=== PATIENT | male | born 1960 | race Caucasian/White ===

== ENCOUNTER 2017-10-08 20:16 | Inpatient (IN) | payer MEDICARE ==
[~2017-10-08] VITALS: Ht 185.4 cm; Wt 94.0 kg
[2017-10-08 20:30] VITALS: BP 118/77; PULSE 90; RESP 20; TEMP 98.6; O2SAT 92
--- NOTE | 2017-10-08 20:46 | PD ---
HPI Chief Complaint: Respiratory Symptoms Time Seen by Provider: 20:37 Travel History International Travel<30 days: No Contact w/Intl Traveler<30days: No Traveled to known affect area: No History of Present Illness HPI 57-year-old male here for evaluation of cough, shortness of breath, hemoptysis. The patient reports that he has had several episodes of pneumonia in the past , few episodes have required intubation. He was diagnosed with pneumonia couple of weeks ago while in [place] and was admitted for 3 days for this. He states his symptoms improved, however worsened 3 days ago after driving back to [place] from [place]. No chest pain. No fevers or chills. Shortness of breath is at rest, worse with exertion. PFSH Past Medical History ?: Not Social History Tobacco Use: No (Former smoker) Allergies-Medications (Allergen,Severity, Reaction): Coded Allergies: No Known Allergies (Unverified , 10/08/17) Reported Meds & Prescriptions Reported Meds & Active Scripts Active Reported Hydrochlorothiazide 25 Mg Tab 25 Mg PO DAILY Rizatriptan (Rizatriptan Benzoate) 10 Mg Tab Oxycodone-Acetaminophen 10-325 mg Tab 1 Tab PO Q6H PRN Fluoxetine (Fluoxetine HCl) 40 Mg Cap 40 Cap PO DAILY Buspirone (Buspirone HCl) 15 Mg Tab 15 Mg PO BID Mirtazapine 30 Mg Tab 30 Mg PO HS Tizanidine (Tizanidine HCl) 4 Mg Cap 4 Mg PO TID Gabapentin 800 Mg Tab 800 Mg PO TID Review of Systems Except as stated in HPI: all other systems reviewed are Neg Physical Exam Narrative GENERAL: Well-developed, well-nourished, awake, alert, no apparent distress. SKIN: Focused skin assessment warm/dry. HEAD: Atraumatic. Normocephalic. EYES: Pupils equal and round. No scleral icterus. No injection or drainage. ENT: No nasal bleeding or discharge. Mucous membranes pink and moist. NECK: Trachea midline. No JVD. CARDIOVASCULAR: Regular rate and rhythm. No murmur appreciated. RESPIRATORY: No accessory muscle use. Clear to auscultation. Breath sounds equal bilaterally. GASTROINTESTINAL: Abdomen soft, non-tender, nondistended. MUSCULOSKELETAL: No obvious deformities. No clubbing. No cyanosis. Significant bilateral lower extremity edema, left greater than right which the patient states is his baseline. NEUROLOGICAL: Awake and alert. No obvious cranial nerve deficits. Motor grossly within normal limits. Normal speech. PSYCHIATRIC: Appropriate mood and affect; insight and judgment normal. Data Data Last Documented VS Vital Signs Date Time Temp Pulse Resp B/P (MAP) Pulse Ox O2 Delivery O2 Flow Rate FiO2 10/08/17 22:35 78 18 146/78 (100) 97 Room Air 10/08/17 20:30 98.6 Orders Orders Sepsis Workup Initiated (10/08/17 ) Electrocardiogram (10/08/17 20:43) Complete Blood Count With Diff (10/08/17 20:43) Comprehensive Metabolic Panel (10/08/17 20:43) Prothrombin Time / Inr (Pt) (10/08/17 20:43) Act Partial Throm Time (Ptt) (10/08/17 20:43) Lactic Acid Sepsis Protocol (10/08/17 20:43) Ckmb (Isoenzyme) Profile (10/08/17 20:43) Troponin I (10/08/17 20:43) Urinalysis - C+S If Indicated (10/08/17 20:43) Influenzae A/B Antigen (10/08/17 20:43) Blood Culture (10/08/17 20:43) Chest, Single Ap (10/08/17 20:43) Ecg Monitoring (10/08/17 20:43) Iv Access Insert/Monitor (10/08/17 20:43) Oximetry (10/08/17 20:43) Oxygen Administration (10/08/17 20:43) Ct Pulmonary Angiogram (10/08/17 ) Cefepime Inj (Maxipime Inj) (10/08/17 22:00) Azithromycin Inj (Zithromax Inj) (10/08/17 22:00) Acetaminophen (Tylenol) (10/08/17 22:15) Iohexol 350 Inj (Omnipaque 350 Inj) (10/08/17 22:51) Admit To Inpatient (10/08/17 ) Vital Signs (Adult) Q4H (10/08/17 22:55) Activity Oob With Assistance (10/08/17 22:55) Diet Heart Healthy (10/09/17 Breakfast) Sodium Chloride 0.9% Flush (Ns Flush) (10/08/17 23:00) Sodium Chloride 0.9% Flush (Ns Flush) (10/09/17 09:00) Admit Order (Ed Use Only) (10/08/17 22:57) Acetaminophen (Tylenol) (10/08/17 23:00) Basic Metabolic Panel (Bmp) (10/09/17 06:00) Complete Blood Count With Diff (10/09/17 06:00) Enoxaparin Inj (Lovenox Inj) (10/08/17 23:00) Naloxone Inj (Narcan Inj) (10/08/17 23:00) Magnesium Hydroxide Liq (Milk Of Magnesi (10/08/17 23:00) Sennosides (Senokot) (10/08/17 23:00) Bisacodyl Supp (Dulcolax Supp) (10/08/17 23:00) Lactulose Liq (Lactulose Liq) (10/08/17 23:00) Inpatient Certification (10/08/17 ) Ceftriaxone Inj (Rocephin Inj) (10/09/17 09:00) Azithromycin (Zithromax) (10/09/17 09:00) Labs Laboratory Tests Test 10/08/17 20:15 10/08/17 21:05 10/08/17 21:15 Lactic Acid Level 0.9 mmol/L White Blood Count 6.5 TH/MM3 Red Blood Count 4.05 MIL/MM3 Hemoglobin 13.4 GM/DL Hematocrit 37.5 % Mean Corpuscular Volume 92.5 FL Mean Corpuscular Hemoglobin 33.0 PG Mean Corpuscular Hemoglobin Concent 35.7 % Red Cell Distribution Width 12.9 % Platelet Count 342 TH/MM3 Mean Platelet Volume 8.1 FL Neutrophils (%) (Auto) 78.9 % Lymphocytes (%) (Auto) 14.3 % Monocytes (%) (Auto) 5.7 % Eosinophils (%) (Auto) 0.4 % Basophils (%) (Auto) 0.7 % Neutrophils # (Auto) 5.2 TH/MM3 Lymphocytes # (Auto) 0.9 TH/MM3 Monocytes # (Auto) 0.4 TH/MM3 Eosinophils # (Auto) 0.0 TH/MM3 Basophils # (Auto) 0.0 TH/MM3 CBC Comment DIFF FINAL Differential Comment Prothrombin Time 10.0 SEC Prothromb Time International Ratio 1.0 RATIO Activated Partial Thromboplast Time 26.9 SEC Blood Urea Nitrogen 16 MG/DL Creatinine 1.10 MG/DL Random Glucose 90 MG/DL Total Protein 8.1 GM/DL Albumin 3.2 GM/DL Calcium Level 9.5 MG/DL Alkaline Phosphatase 102 U/L Aspartate Amino Transf (AST/SGOT) 16 U/L Alanine Aminotransferase (ALT/SGPT) 18 U/L Total Bilirubin 0.4 MG/DL Sodium Level 139 MEQ/L Potassium Level 3.8 MEQ/L Chloride Level 102 MEQ/L Carbon Dioxide Level 30.5 MEQ/L Anion Gap 7 MEQ/L Estimat Glomerular Filtration Rate 69 ML/MIN Total Creatine Kinase 59 U/L Troponin I LESS THAN 0.02 NG/ML Urine Color YELLOW Urine Turbidity CLEAR Urine pH 8.0 Urine Specific [place] 1.015 Urine Protein NEG mg/dL Urine Glucose (UA) NEG mg/dL Urine Ketones NEG mg/dL Urine Occult Blood NEG Urine Nitrite NEG Urine Bilirubin NEG Urine Urobilinogen 4.0 MG/DL Urine Leukocyte Esterase NEG Urine Squamous Epithelial Cells 0-5 /hpf Microscopic Urinalysis Comment CULT NOT INDICATED MDM Medical Decision Making Medical Screen Exam Complete: Yes Emergency Medical Condition: Yes Differential Diagnosis Pneumonia, PE, bronchitis, pneumothorax, ACS, pulmonary edema, pulmonary effusion Narrative Course Initial vital signs show heart rate 90, blood pressure 118/77, pulse ox 92% on room air, oral temp of 98.6F. CBC: WBC 6.5, hemoglobin 13.4, hematocrit 37.5, platelets 342, neutrophils 79%. CMP is unremarkable. Cardiac enzymes are negative. UA is not suggestive of UTI. Chest x-ray: CONCLUSION: Bilateral lower lung infiltrates, right larger than left. CT pulmonary angiogram: CONCLUSION: 1. The study is negative for pulmonary embolism. 2. Bilateral lower lobe consolidative infiltrates with larger area of involvement on the right, but denser consolidation on the left. 3. Solitary enlarged subcarinal node. Patient was made aware of all findings. He is empirically started on cefepime and azithromycin. He will be admitted for further treatment and evaluation of pneumonia, hypoxia, hemoptysis. Diagnosis Primary Impression: Pneumonia Qualified Codes: J18.1 - Lobar pneumonia, unspecified organism Additional Impressions: Hypoxia Hemoptysis Admitting Information Admitting Physician Requests: Admit Scripts Methylprednisolone Dosepak (Medrol Dosepak) 4 Mg Dspk 4 MG PO DIRECTED, #1 DSPK 0 Refills Per Pharmacist direction Prov: Berlin Marshall 10/09/17 Levofloxacin (Levofloxacin) 750 Mg Tablet 750 MG PO DAILY for Infection for 10 Days, #10 TAB 0 Refills Prov: Berlin Marshall 10/09/17 Chriss Navas MD October 08, 2017 20:46
[2017-10-08 21:11] VITALS: BP 142/80; PULSE 80; RESP 18; O2SAT 98
[2017-10-08 21:20] LABS: BILIRUBIN, URINE NEG (NEG); BLOOD, URINE NEG (NEG); GLUCOSE,URINE NEG (NEG); KETONE, URINE NEG (NEG); NITRITE,URINE NEG (NEG); URINE COLOR YELLOW (YELLW/STRAW); URINE LEUKOCYTE ESTERASE NEG (NEG)
--- NOTE | 2017-10-08 21:27 | RADRPT ---
EXAM DATE: 10/08/2017 9:24 PM EDT AGE/SEX: 57 years / Male INDICATIONS: Cough, shortness of breath for 1 week CLINICAL DATA: This is the patient's initial encounter. Patient reports that signs and symptoms have been present for 1 week and indicates a pain score of 0/10. MEDICAL/SURGICAL HISTORY: None. None. COMPARISON: No prior [facility] exams available for comparison. FINDINGS: Ill-defined partially consolidated infiltrate in the lower right lung and triangular-shaped opacity i n the lower left lung. The heart is normal in size and stop the upper lungs are clear. Both hemidiaph ragms well delineated. CONCLUSION: Bilateral lower lung infiltrates, right larger than left. Electronically signed by: Calos Sahu MD 10/08/2017 9:25 PM EDT
[2017-10-08 21:30] LABS: SQUAMOUS EPITHELIAL CELL URINE 0-5 /hpf (0-5)
[2017-10-08 21:32] LABS: AUTOMATED NEUTROPHIL # 5.2 TH/MM3 (1.8-7.7); BASOPHIL % 0.7 % (0.0-2.0); EOSINOPHIL % 0.4 % (0.0-4.0); HEMATOCRIT 37.5 % (39.0-51.0); HEMOGLOBIN 13.4 GM/DL (13.0-17.0); LYMPH % 14.3 % (9.0-44.0); LYMPHOCYTE # 0.9 TH/MM3 (1.0-4.8); MEAN CELL VOLUME 92.5 FL (80.0-100.0); MEAN CORPUSCULAR HGB CONC 35.7 % (32.0-36.0); MEAN PLATELET VOLUME 8.1 FL (7.0-11.0); MONO % 5.7 % (0.0-8.0); MONOCYTE # 0.4 TH/MM3 (0-0.9); NEUT % 78.9 % (16.0-70.0); PLATELET COUNT 342 TH/MM3 (150-450); RED BLOOD COUNT 4.05 MIL/MM3 (4.50-5.90); RED CELL DISTRIBUTION WIDTH 12.9 % (11.6-17.2); WHITE BLOOD COUNT 6.5 TH/MM3 (4.0-11.0)
[2017-10-08 21:40] LABS: CHLORIDE 102 MEQ/L (98-107); SODIUM (NA) 139 MEQ/L (136-145)
[2017-10-08 21:44] LABS: CALCIUM 9.5 MG/DL (8.5-10.1)
[2017-10-08 21:45] LABS: ALBUMIN 3.2 GM/DL (3.4-5.0); BICARBONATE 30.5 MEQ/L (21.0-32.0); BLOOD UREA NITROGEN 16 MG/DL (7-18); GLUCOSE,RANDOM 90 MG/DL (74-106)
[2017-10-08 21:48] LABS: ALT (GPT) 18 U/L (12-78); AST (GOT) 16 U/L (15-37); GLOMERULAR FILTRATION RATE 69 ML/MIN (>89)
[2017-10-08 21:49] LABS: TOTAL BILIRUBIN ADULT 0.4 MG/DL (0.2-1.0); TOTAL PROTEIN 8.1 GM/DL (6.4-8.2)
[2017-10-08 21:51] LABS: ALKALINE PHOSPHATASE 102 U/L (45-117)
[2017-10-08 21:53] LABS: TROPONIN I LESS THAN 0.02 NG/ML (0.02-0.05)
[2017-10-08] MEDS ORDERED: AZITHROMYCIN INJ 500 MG in SODIUM CHLOR 0.9% 250 ML INJ 250 ML IV ONE (22:00)
[2017-10-08] MEDS ORDERED: CEFEPIME INJ 1,000 MG in SODIUM CHLORIDE 0.9% INJ 100 ML IV ONE (22:00)
[2017-10-08] MEDS ORDERED: ACETAMINOPHEN 325 MG TAB PO ONE (22:15)
--- NOTE | 2017-10-08 22:33 | RADRPT ---
EXAM DATE: 10/08/2017 10:28 PM EDT AGE/SEX: 57 years / Male INDICATIONS: Hemoptysis. CLINICAL DATA: This is the patient's initial encounter. Patient reports that signs and symptoms have been present for 1 day and indicates a pain score of 0/10. MEDICAL/SURGICAL HISTORY: . Pulmonary embolism. None. RADIATION DOSE: 15.06 CTDI (mGy) COMPARISON: No prior [facility] exams available for comparison. TECHNIQUE: Volumetric scanning was performed using a multi-row detector CT scanner during bolus infu meagan of 65 ml Omnipaque 350 (iohexol) nonionic water-soluble contrast as a single exam dose. The enriqueta a was post processed with a variety of visualization algorithms including full volume maximum intensi ty projection and sliding thin slab reformation. Using automated exposure control and adjustment of the mA and/or kV according to patient size, radiation dose was kept as low as reasonably achievable t o obtain optimal diagnostic quality images. FINDINGS: Pulmonary Arteries: No filling defects are seen in the pulmonary arteries out to the subsegmental ve ssels. The left and right pulmonary arteries are normal in diameter. Lung: Multi segmental consolidation in the right lower lobe and dense consolidation or atelectasis i n the posterior left lower lung. Effusion: None. Mediastinum: 1 subcarinal node is prominent measuring 1.7 cm. No other enlarged mediastinal nodes. Other: The axilla is unremarkable. CONCLUSION: 1. The study is negative for pulmonary embolism. 2. Bilateral lower lobe consolidative infiltrates with larger area of involvement on the right, but denser consolidation on the left. 3. Solitary enlarged subcarinal node. Electronically signed by: Calos Sahu MD 10/08/2017 10:32 PM EDT
[2017-10-08 22:35] VITALS: BP 146/78; PULSE 78; RESP 18; O2SAT 97
[2017-10-08] MEDS ORDERED: GABA800T PO (22:41)
[2017-10-08] MEDS ORDERED: TIZA4CAP3 PO (22:41)
[2017-10-08] MEDS ORDERED: FLUO40CA PO (22:41)
[2017-10-08] MEDS ORDERED: RIZA10TA2 (22:41)
[2017-10-08] MEDS ORDERED: OXYC1TAB36 PO (22:41)
[2017-10-08] MEDS ORDERED: BUSP15TA PO (22:41)
[2017-10-08] MEDS ORDERED: HYDR25TA5 PO (22:41)
[2017-10-08] MEDS ORDERED: MIRT30TA PO (22:41)
[2017-10-08] MEDS ORDERED: IOHEXOL 350 MG/ML 10 ML VIAL (for RAD DIAG) IVCONTRAST ONE (22:51)
[2017-10-08] MEDS ORDERED: NALOXONE HCL 0.4 MG/ML AMP IV PUSH PRN (23:00)
[2017-10-08] MEDS ORDERED: BISACODYL 10 MG SUPP RECTAL PRN (23:00)
[2017-10-08] MEDS ORDERED: SENNOSIDES 8.6 MG TAB PO PRN (23:00)
[2017-10-08] MEDS ORDERED: SODIUM CHLORIDE 0.9% FLUSH 10 ML FLUSH IV FLUSH PRN (23:00)
[2017-10-08] MEDS ORDERED: ENOXAPARIN SODIUM 40 MG/0.4 ML SYRINGE SQ SCH (23:00)
[2017-10-08] MEDS ORDERED: LACTULOSE SYRUP 20 GM/30 ML CUP PO PRN (23:00)
[2017-10-08] MEDS ORDERED: ACETAMINOPHEN 325 MG TAB PO PRN (23:00)
[2017-10-08] MEDS ORDERED: MAGNESIUM HYDROXIDE SUSP 30 ML CUP PO PRN (23:00)
[2017-10-09 00:27] VITALS: BP 129/88; PULSE 68; RESP 20; TEMP 96.9; O2SAT 96
[2017-10-09 06:44] LABS: AUTOMATED NEUTROPHIL # 2.7 TH/MM3 (1.8-7.7); BASOPHIL % 0.6 % (0.0-2.0); EOSINOPHIL % 0.7 % (0.0-4.0); HEMATOCRIT 35.8 % (39.0-51.0); HEMOGLOBIN 11.9 GM/DL (13.0-17.0); LYMPH % 27.2 % (9.0-44.0); LYMPHOCYTE # 1.2 TH/MM3 (1.0-4.8); MEAN CELL VOLUME 94.4 FL (80.0-100.0); MEAN CORPUSCULAR HEMOGLOBIN 31.4 PG (27.0-34.0); MEAN CORPUSCULAR HGB CONC 33.3 % (32.0-36.0); MEAN PLATELET VOLUME 7.9 FL (7.0-11.0); MONO % 8.5 % (0.0-8.0); MONOCYTE # 0.4 TH/MM3 (0-0.9); PLATELET COUNT 319 TH/MM3 (150-450); RED BLOOD COUNT 3.79 MIL/MM3 (4.50-5.90); RED CELL DISTRIBUTION WIDTH 12.4 % (11.6-17.2); WHITE BLOOD COUNT 4.3 TH/MM3 (4.0-11.0)
[2017-10-09 06:53] LABS: CALCIUM 9.5 MG/DL (8.5-10.1)
[2017-10-09 06:54] LABS: BICARBONATE 32.6 MEQ/L (21.0-32.0)
[2017-10-09 08:30] VITALS: BP 146/80; PULSE 73; RESP 15; TEMP 97.7; O2SAT 93
[2017-10-09] MEDS ORDERED: AZITHROMYCIN 250 MG TAB PO SCH (09:00)
[2017-10-09] MEDS ORDERED: cefTRIAXone INJ 2,000 MG in SODIUM CHLORIDE 0.9% INJ 100 ML IV SCH (09:00)
[2017-10-09] MEDS ORDERED: SODIUM CHLORIDE 0.9% FLUSH 10 ML FLUSH IV FLUSH SCH (09:00)
--- NOTE | 2017-10-09 10:47 | HHI.HP ---
[facility]Staff Ad[facility] Diagnosis Pneumonia, hypoxia, hemoptysis Diagnoses: (1) Pneumonia Diagnosis: Principal Chief Complaint: Cough, sputum with blood Travel History International Travel<30 Days: No Contact w/Intl Traveler <30 Da: No Traveled to Known Affected Are: No History of Present Illness Written by Berlin Marshall, acting as scribe for Dr. Souza on 10/09/17 at 10: 47. 57-year-old male with known history of recent pneumonia, history of tobacco use, chronic degenerative neck issues. Patient states that his normal state of health until he went to [place] to visit his mother and he developed pneumonia at that time. In the hospital and was discharged with 10 days worth of antibiotics include cefdinir/Zithromax. Patient took the antibiotics until completed. The patient did drive back home and was doing quite well until approximately 3 days ago when he started having cough again so he called his primary medical doctor who started him on antibiotic in which he would only have to take once daily. He agrees that it may have been Levaquin. Patient only took 1 dose of medication until he started developing cough with some blood in his he came to emergency department for evaluation. Patient had workup done and CT scan of the chest did not indicate any PE, however still indicates bilateral pneumonia. Because that reason is recommended by the ER physician that patient be observed in the hospital. Patient denies any fever, chills, shortness breath, abdominal pain, nausea, vomiting, diarrhea, any worsening lower extremity edema. Patient did have some cough with some red blood in it, however he has not had any recurrence since being in the hospital. Review of Systems Respiratory: COMPLAINS OF: Cough, Hemoptysis Except as stated in HPI: all other systems reviewed are Neg Past Family Social History Past Medical History Degenerative neck issues Recurrent pneumonia History of tobacco use Past Surgical History Gastric bypass surgery Vasectomy Varicose vein removed from bilateral legs Cholecystectomy Surgery for bowel obstruction Reported Medications Reported Meds & Active Scripts Active Medrol Dosepak (Methylprednisolone) 4 Mg Dspk 4 Mg PO DIRECTED Per Pharmacist direction Levofloxacin 750 Mg Tablet 750 Mg PO DAILY 10 Days Reported Hydrochlorothiazide 25 Mg Tab 25 Mg PO DAILY Rizatriptan (Rizatriptan Benzoate) 10 Mg Tab Oxycodone-Acetaminophen 10-325 mg Tab 1 Tab PO Q6H PRN Fluoxetine (Fluoxetine HCl) 40 Mg Cap 40 Cap PO DAILY Buspirone (Buspirone HCl) 15 Mg Tab 15 Mg PO BID Mirtazapine 30 Mg Tab 30 Mg PO HS Tizanidine (Tizanidine HCl) 4 Mg Cap 4 Mg PO TID Gabapentin 800 Mg Tab 800 Mg PO TID Allergies: Coded Allergies: No Known Allergies (Unverified , 10/08/17) Family History Reviewed is significant for father at age 52 from stroke and heart attack, mother recently at age 87 Social History Patient quit smoking 18 years ago, prior to that he smoked 3 pack of cigarettes a day since he was 17 years old. Does use alcohol occasionally. Denies any illicit drug use Physical Exam Vital Signs Vital Signs Date Time Temp Pulse Resp B/P (MAP) Pulse Ox O2 Delivery O2 Flow Rate FiO2 10/09/17 08:30 97.7 73 15 146/80 (102) 93 10/09/17 00:27 96.9 68 20 129/88 (102) 96 10/09/17 00:24 10/09/17 00:19 20 10/08/17 22:35 78 18 146/78 (100) 97 Room Air 10/08/17 21:11 80 18 142/80 (100) 98 Room Air 10/08/17 21:11 18 98 Room Air 10/08/17 21:11 98 Room Air 10/08/17 20:47 22 94 Room Air 10/08/17 20:30 98.6 90 20 118/77 (91) 92 Physical Exam GENERAL: Well-developed, well-nourished, in no acute distress. alert and orientated HEENT: Head is normocephalic without any lesions or masses noted. Facial features are symmetric. Eyes: Pupils equal round reactive to light. Extraocular muscles are intact. Conjunctivae were clear. Oropharyngeal: Pharynx without any erythema edema. Tongue is midline without deviation. Buccal mucosa is moist without any masses or lesions NECK: Supple without any masses. Trachea midline no deviation. No JVD, no bruits are appreciated CARDIAC: Regular rhythm, regular rate. S1/S2 are heard. No murmurs gallops or rubs. LUNGS: Clear to auscultation bilaterally. No wheeze, rhonchi or rales. No use of accessory muscles on inspiration or expiration. ABDOMEN: Soft, nontender. Nondistended. Bowel sounds heard in all 4 quadrants. No organomegaly or masses. Negative rebound, negative guarding EXTREMITIES: No edema, pulses are equal bilaterally. No cyanosis or clubbing NEUROLOGY: Mood and affect appear appropriate. Cranial nerves II through XII grossly intact. Muscle strength 5/5 in upper and lower extremities bilaterally. Deep tendon reflexes are 2+ in upper and lower extremities bilaterally. Laboratory Laboratory Tests Test 10/08/17 20:15 10/08/17 21:05 10/08/17 21:15 10/09/17 05:06 Lactic Acid Level 0.9 White Blood Count 6.5 4.3 Red Blood Count 4.05 3.79 Hemoglobin 13.4 11.9 Hematocrit 37.5 35.8 Mean Corpuscular Volume 92.5 94.4 Mean Corpuscular Hemoglobin 33.0 31.4 Mean Corpuscular Hemoglobin Concent 35.7 33.3 Red Cell Distribution Width 12.9 12.4 Platelet Count 342 319 Mean Platelet Volume 8.1 7.9 Neutrophils (%) (Auto) 78.9 63.0 Lymphocytes (%) (Auto) 14.3 27.2 Monocytes (%) (Auto) 5.7 8.5 Eosinophils (%) (Auto) 0.4 0.7 Basophils (%) (Auto) 0.7 0.6 Neutrophils # (Auto) 5.2 2.7 Lymphocytes # (Auto) 0.9 1.2 Monocytes # (Auto) 0.4 0.4 Eosinophils # (Auto) 0.0 0.0 Basophils # (Auto) 0.0 0.0 CBC Comment DIFF FINAL DIFF FINAL Differential Comment Prothrombin Time 10.0 Prothromb Time International Ratio 1.0 Activated Partial Thromboplast Time 26.9 Blood Urea Nitrogen 16 14 Creatinine 1.10 1.00 Random Glucose 90 82 Total Protein 8.1 Albumin 3.2 Calcium Level 9.5 9.5 Alkaline Phosphatase 102 Aspartate Amino Transf (AST/SGOT) 16 Alanine Aminotransferase (ALT/SGPT) 18 Total Bilirubin 0.4 Sodium Level 139 141 Potassium Level 3.8 4.0 Chloride Level 102 105 Carbon Dioxide Level 30.5 32.6 Anion Gap 7 3 Estimat Glomerular Filtration Rate 69 77 Total Creatine Kinase 59 Troponin I LESS THAN 0.02 Urine Color YELLOW Urine Turbidity CLEAR Urine pH 8.0 Urine Specific [place] 1.015 Urine Protein NEG Urine Glucose (UA) NEG Urine Ketones NEG Urine Occult Blood NEG Urine Nitrite NEG Urine Bilirubin NEG Urine Urobilinogen 4.0 Urine Leukocyte Esterase NEG Urine Squamous Epithelial Cells 0-5 Microscopic Urinalysis Comment CULT NOT INDICATED Date/Time Source Procedure Growth Status 10/08/17 21:08 Blood Peripheral Aerobic Blood Culture Pending Received 10/08/17 21:08 Blood Peripheral Anaerobic Blood Culture Pending Received 10/08/17 21:08 Nasal Washing Influenza Types A,B Antigen (PAMELA) - Final NEGATIVE FOR FLU A AND B ANTIGEN.... Complete Result Diagram: 10/09/17 0506 10/09/17 0506 Imaging Last Impressions Chest X-Ray 10/08/173 Signed Impressions: CONCLUSION: Bilateral lower lung infiltrates, right larger than left. CT Angiography 10/08/17 0000 Signed Impressions: CONCLUSION: 1. The study is negative for pulmonary embolism. 2. Bilateral lower lobe consolidative infiltrates with larger area of involvem ent on the right, but denser consolidation on the left. 3. Solitary enlarged subcarinal node. Caprini VTE Risk Assessment Caprini VTE Risk Assessment: No/Low Risk (score <= 1) Caprini Risk Assessment Model Point Value = 1 Point Value = 2 Point Value = 3 Point Value = 5 Age 41-60 Minor surgery BMI > 25 kg/m2 Swollen legs Varicose veins or History of unexplained or recurrent spontaneous Oral contraceptives or hormone replacement Sepsis (< 1 month) Serious lung disease, including pneumonia (< 1 month) Abnormal pulmonary function Acute myocardial infarction Congestive heart failure (< 1 month) History of inflammatory bowel disease Medical patient at bed rest Age 61-74 Arthroscopic surgery Major open surgery (> 45 min) Laparoscopic surgery (> 45 min) Malignancy Confined to bed (> 72 hours) Immobilizing plaster cast Central venous access Age >= 75 History of VTE Family history of VTE Factor V Leiden Prothrombin [id number] Lupus anticoagulant Anticardiolipin antibodies Elevated serum homocysteine Heparin-induced thrombocytopenia Other congenital or acquired thrombophilia Stroke (< 1 month) Elective arthroplasty Hip, pelvis, or leg fracture Acute spinal cord injury (< 1 month) Prophylaxis Regimen Total Risk Factor Score Risk Level Prophylaxis Regimen 0-1 Low Early ambulation 2 Moderate Order ONE of the following: *Sequential Compression Device (SCD) *Heparin 5000 units SQ BID 3-4 Higher Order ONE of the following medications: *Heparin 5000 units SQ TID *Enoxaparin/Lovenox 40 mg SQ daily (WT < 150 kg, CrCl > 30 mL/min) *Enoxaparin/Lovenox 30 mg SQ daily (WT < 150 kg, CrCl > 10-29 mL/min) *Enoxaparin/Lovenox 30 mg SQ BID (WT < 150 kg, CrCl > 30 mL/min) AND/OR *Sequential Compression Device (SCD) 5 or more Highest Order ONE of the following medications: *Heparin 5000 units SQ TID (Preferred with Epidurals) *Enoxaparin/Lovenox 40 mg SQ daily (WT < 150 kg, CrCl > 30 mL/min) *Enoxaparin/Lovenox 30 mg SQ daily (WT < 150 kg, CrCl > 10-29 mL/min) *Enoxaparin/Lovenox 30 mg SQ BID (WT < 150 kg, CrCl > 30 mL/min) AND *Sequential Compression Device (SCD) Assessment and Plan Assessment and Plan 57-year-old male with history of recurrent pneumonia who presented the hospital because of cough, blood in his sputum Bilateral pneumonia -Patient did have chest x-ray done which showed bilateral lower lung infiltrates , right larger than left -Pulmonary angiogram was performed which did not indicate any pulmonary emboli, however does support bilateral lower lobe consolidative infiltrates larger on the right but denser on the left -Patient with recent pneumonia, x-ray findings could be residual pneumonia from recently treated infection. Patient is without any leukocytosis, afebrile, no signs of hypoxia -We will continue Levaquin 750 mg p.o. daily for 10 days upon discharge -Continue duo nebs/Combivent DVT prevention -Low risk, early ambulation Discharge disposition Discharge home in stable condition Activity: Ad joe. Diet: Regular diet Medication per medication reconciliation Follow-up with primary medical doctor in 1 week Problem Qualifiers (1) Pneumonia: Qualified Codes: J18.1 - Lobar pneumonia, unspecified organism Berlin Marshall October 09, 2017 10:47 Sung Souza MD October 09, 2017 10:48
[2017-10-09] MEDS ORDERED: LEVO750T3 PO (11:11)
[2017-10-09] MEDS ORDERED: MEDR4PAK PO (11:11)
--- NOTE | 2017-10-09 11:11 | HHI.DCPOC ---
Discharge Care Plan Diagnosis: (1) Pneumonia Goals to Promote Your Health * To prevent worsening of your condition and complications * To maintain your health at the optimal level Directions to Meet Your Goals Take your medications as prescribed Follow your dietary instruction Follow activity as directed Keep your appointments as scheduled Take your immunizations and boosters as scheduled If your symptoms worsen call your PCP, if no PCP go to Urgent Care Center or Emergency Room Smoking is Dangerous to Your Health. Avoid second hand smoke Call the 24-hour hour crisis hotline for domestic abuse at [place] Marshall October 09, 2017 11:11
--- NOTE | 2017-10-09 13:41 | MB ---
cc: Jc Bro MD DATE: 10/09/2017 HISTORY OF PRESENT ILLNESS: Mr. Antoine is a 57-year-old white male who presents with right lower lobe pneumonia. He was traveling back from [place] after attending his mother's . He had actually been hospitalized there with pneumonia and they recommended that he return home. He had been evaluated in [place] about 3 years ago for recurrent pneumonia. Apparently saw a carpet inspector, although we have none of those records available. It sounds like he had an extensive review including possibly bronchoscopy, but he says nothing specific was identified as far as he knew. He is homosexual, lives with a male friend, is aware of the risk of HIV, but was tested within the last 6-8 months and was apparently negative, and during that evaluation 3 years ago again, as best I can tell from his own personal history relating it to me, no specific opportunistic infections were identified. The patient is also quite emphatic that during the 3 years he has lived here, he has not had pneumonia while in [place]. The frequent pneumonias occurred while he was living in [place], which is one of the reasons he moved here. He was also a former heavy smoker, 2-3 packs per day, smoked until he was about 40-42 years of age and has not smoked since. Denies any type of recreational drug use. He presented with a cough and congestion, some intermittent hemoptysis and CT scan reveals an extensive right lower lobe and patchy left lower lobe infiltrate. No evidence of pulmonary embolism. No significant pleural effusions. The patient was begun on IV antibiotics last night, says that he is feeling much better today. He is afebrile. Cultures are pending. Influenza A and B were negative. White count was not elevated, it was 6500. Electrolytes are normal. BUN and creatinine normal. No elevation in liver functions. PAST MEDICAL HISTORY: He says until he was 47 years of age he has had no serious health issues. However, he was extremely obese. He said at one time he weighed 500 pounds. He had a gastric bypass surgery in 1999 and lost hundreds of pounds. He had some vein stripping in his legs for varicosities, had a vasectomy in the . Has never been formally diagnosed with COPD. He has a history of hypertension, but no prior history of myocardial infarction, stroke, or CHF. He did have a bowel obstruction in 2008 complicated by sepsis, ended up having 2 or 3 surgeries for that and was in the hospital for 4 months. He states that his pneumonias began to occur since that prolonged hospitalization. MEDICATIONS: Reviewed in the EMR. ALLERGIES: NONE KNOWN. SOCIAL HISTORY/FAMILY HISTORY: Lives with a male friend. Formerly , , had 3 daughters in that relationship, all of whom are apparently healthy. Mother just of problems related to an infection. Father of heart disease in his 50s. A sister with diabetes. No chronic lung disease in the family. Also, no animal exposures or unusual inhalation exposures. REVIEW OF SYSTEMS: Denies nausea, vomiting, abdominal pain or recent change in bowel habits. No significant chronic edema. PHYSICAL EXAMINATION: VITAL SIGNS: 97 degrees, 140/80, pulse 70, respirations 14-16, nonlabored. Room air saturation 97%. HEENT: Sclerae are anicteric. Mucous membranes are moist. No thrush. NECK: Veins are flat. CHEST: Remarkably clear, actually a bit diminished. No congestion or wheezing. HEART: Regular rhythm. No harsh murmur. ABDOMEN: Soft, nontender. EXTREMITIES: Large legs. Vein stripping scars in the legs, but no palpable edema. No calf tenderness. DISCUSSION: Mr. Antoine presents with obvious right lower lobe infiltrate, almost looks somewhat chronic as though there may be underlying bronchiectasis. This may account for why he was having recurrent problems. Nothing mass-like or suggestive of malignancy, although with the prior smoking history these x-rays will have to be followed up until clear. I would suggest continuing current antibiotic therapy. Discontinue Lovenox in light of the recent hemoptysis. Followup chest x-ray tomorrow and check to see if cultures remain negative. Further diagnostic and/or therapeutic intervention will depend on his ongoing clinical course. R. MD CASANDRA Rosa/BAILEE , 01:16 PM , 01:40 PM
--- NOTE | 2017-10-10 08:15 | EKG ---
Date Performed: 10/08/2017 Time Performed: 20:51:57 PTAGE: 57 years EKG: Sinus rhythm NORMAL ECG NO PREVIOUS TRACING DOCTOR: Tanya Sanon Interpretating Date/Time 10/10/2017 08:12:39
== END 2017-10-09 15:16 | disposition home or self-care (01) | DRG 194 ==
LOC: PHED 20:16 → PHEDA 22:57 → OBSVTOIN 22:57 → UNDOADMOB 22:59 → PHEDA 22:59 → PH3A 10-09 00:17 → UNDODISOB 10-09 15:16
PROVIDERS: ADMIT Hospitalist; ATTEND Hospitalist
DX: J18.1 Lobar pneumonia, unspecified organism (principal); R04.2 Hemoptysis; R09.02 Hypoxemia; Z87.01 Personal history of pneumonia (recurrent); Z87.891 Personal history of nicotine dependence; Z98.84 Bariatric surgery status
CPT/HCPCS: 71045; 71275; 80048; 80053; 81001; 82550; 83605; 84484; 85025; 85610; 85730; 87040; 87804; 93005; 96365; J0456; J0692; J0696; J1650; J7050; Q9967

== ENCOUNTER 2018-04-27 06:12 | Inpatient (IN) ==
--- NOTE | 2018-04-27 06:26 | ED ---
Triage General Chief Complaint: Shortness of Breath/Dyspnea Time Seen by Provider: 04/27/18 06:23 Source: patient Limitations: no limitations History of Present Illness HPI narrative: Patient presents with history of indigestion last night after dinner. Patient went to sleep with no complaints. Patient woke up at 4:30 AM with substernal pressure diaphoresis and shortness of breath. Patient has no cardiac history. Patient has had pneumonia 17 times. Patient has history of increased anxiety and stress. Allergies Allergies Allergy/AdvReac Type Severity Reaction Status Date / Time No Known Allergies Allergy Unverified 10/08/17 20:34 Vital Signs Recall Vital Signs: Initial Documented Vital Signs Temperature 99.4 F 04/27/18 06:13 Pulse Rate 112 H 04/27/18 06:13 Respiratory Rate 22 04/27/18 06:13 Blood Pressure 109/60 04/27/18 06:13 Pulse Oximetry 83 L 04/27/18 06:13 Last Documented Vital Signs Temperature 99.4 F 04/27/18 06:13 Pulse Rate 112 H 04/27/18 06:13 Respiratory Rate 22 04/27/18 06:13 Blood Pressure 109/60 04/27/18 06:13 Pulse Oximetry 83 L 04/27/18 06:13 Vital Signs 3 l l l l 04/27/18 06:13 l l 04/27/18 06:13 l l Height 185.42 cm l l Weight 106.2 kg l l BMI 30.9 l l BP 109/60 l l Blood Pressure Location l l Position Sitting l l Respiration 22 l l Pulse 112 H l l Pulse Source l l Temp 99.4 F l l Temp Source Oral l l Pulse Oximetry (%) 83 L l l Oxygen Delivery Method l l Oxygen Flow Rate l l Comment PMFSH History History Provided By: Patient
--- NOTE | 2018-04-27 06:43 | ED ---
HPI General Chief Complaint: Shortness of Breath/Dyspnea Stated Complaint: sob Time Seen by Provider: 04/27/18 06:23 Source: patient Mode of arrival: ambulatory Limitations: no limitations History of Present Illness HPI narrative: Patient came in ambulatory with shortness of breath with pulse Pulse-ox of 83. Patient states he had mild cough yesterday morning. Also had indigestion after dinner prior to going to bed. Patient woke up with significant shortness of breath, diaphoresis and substernal pressure at 4:30 AM. Symptoms persisted until arrival. However on arrival substernal pressure was no longer evidenced. Patient states that he has had pneumonia 17 times. Comes in with history of anxiety and stress Related Data Home Medications Medication Instructions Recorded Confirmed fluoxetine 40 mg PO DAILY 04/27/18 04/27/18 gabapentin 800 mg PO Q6H 04/27/18 04/27/18 hydrochlorothiazide 12.5 mg PO DAILY 04/27/18 04/27/18 mirtazapine 30 mg PO DAILY 04/27/18 04/27/18 oxycodone-acetaminophen 1 tab PO Q6H PRN 04/27/18 04/27/18 rizatriptan 1 tab PO DAILY 04/27/18 04/27/18 tizanidine 4 mg PO TID 04/27/18 04/27/18 Allergies Allergy/AdvReac Type Severity Reaction Status Date / Time acetaminophen [From Lortab] AdvReac Itching Verified 04/27/18 07:19 hydrocodone [From Lortab] AdvReac Itching Verified 04/27/18 07:19 Review of Systems ROS: all other systems reviewed are negative [facility] Family History Family History Mother Old age Father Family history of COPD (chronic obstructive pulmonary disease) Social History Social History Substance History: No History of Abuse Second Hand Smoke Exposure: No Smoking Status: Former smoker Tobacco Type: Cigarettes How Often Do You Have a Drink Containing Alcohol: Monthly or less Recent Travel in [facility] within the Last 8 Weeks: No Recent Out of Country Travel within the Last 8 Weeks: No Exam Narrative Exam Narrative: GENERAL: Anxiety and diaphoretic with slight temperature elevation SKIN: Focused skin assessment warm/dry. HEAD: Atraumatic. Normocephalic. EYES: Pupils equal and round. No scleral icterus. No injection or drainage. ENT: No nasal bleeding or discharge. Mucous membranes pink and moist. NECK: Trachea midline. No JVD. CARDIOVASCULAR: Regular rate and rhythm. No murmur appreciated. RESPIRATORY: No accessory muscle use. Clear to auscultation. Breath sounds equal bilaterally. Decreased breath sounds in with crepitant rales in bases GASTROINTESTINAL: Abdomen soft, non-tender, nondistended. Hepatic and splenic margins not palpable. MUSCULOSKELETAL: No obvious deformities. No clubbing. No cyanosis. Generalized swelling of lower extremities with no pretibial edema NEUROLOGICAL: Awake and alert. No obvious cranial nerve deficits. Motor grossly within normal limits. Normal speech. PSYCHIATRIC: Increased anxiety and stress Course Reevaluation(s) Reevaluation #1: After receiving 2 L of IV fluids, patient now has shortness of breath, as well as right-sided chest pain. Repeat lung auscultation showed the patient has bilateral significant crackles both posterior lung bases, little worse on right side, but increasing crackles on the left side is a new finding. Discomfort in the right lateral chest wall is typical of his chest discomfort with his pneumonia. However, we will repeat troponin level and EKG. patient somewhat improved with rest, reassurance, and gentle controlled breathing, but still has significant coarse crackles in both lung trejo posteriorly. Time: 10:41 Initial Documented Vital Signs Temperature 99.4 F 04/27/18 06:13 Pulse Rate 112 H 04/27/18 06:13 Respiratory Rate 22 04/27/18 06:13 Blood Pressure 109/60 04/27/18 06:13 Pulse Oximetry 83 L 04/27/18 06:13 Last Documented Vital Signs Temperature 98.3 F 04/28/18 04:00 Pulse Rate 74 04/28/18 06:00 Respiratory Rate 18 04/28/18 06:00 Blood Pressure 119/73 04/28/18 06:00 Pulse Oximetry 94 L 04/28/18 06:00 Critical Care Time Critical Care Time: Yes Total Critical Care Time: 60 Attestation: 60 minutes of critical care time was provided stabilizing this patient with an acute right lower lobe pneumonia, hypoxemia, febrile, with significant neutropenia, and persistent hypotension, despite aggressive fluid replenishment with normal saline. No billable procedures were performed during this encounter. Sign Out Sign Out Data: Patient Sign Out occurred on 04/27/18 at 08:02. Patient's care was discussed, and care was transferred from Rusty Cueto MD to [place] Reyes. Sign Out Comment: Discussed Last updated by Rusty Cueto MD at 04/27/18 08:00 Medical Decision Making MDM Narrative Medical decision making narrative: This 58-year-old man with history of recurrent pneumonia, awakened today with shortness of breath, fever, and was found to be hypoxemic with an oxygen saturation of 83%. Patient is currently 95 % on 2 L of oxygen, resting fairly comfortably, and has a significant neutropenia, with a white count of 1.5, with an absolute neutrophil count of 1000, but he has trended towards hypotension, and required fluid resuscitation, and was given IV antibiotics with Rocephin and azithromycin, but blood pressure has been recorded maximally at 118/68 after first liter of fluid, but during second liter is now in the 92/74 range. Patient is resting fairly comfortably with oxygen, but is at rest. Lactic acid is fairly stable at 1.2, but patient shows several criteria for Sirs and sepsis, with hypoxemia, fever, right lower lobe pneumonia and persistent hypotension, and will likely need intensive care for close monitoring while he is recovering. Consultation with venture capital analyst, Dr. Rodriguez, felt that patient was initially stable, with a normal lactic acid level, and was dehydrated, and needed further fluid hydration, but hydration had to be terminated after 2 L when patient became acutely dyspneic, with acute onset of development of bilateral crackles, and findings of increased perihilar opacifications compatible with pulmonary vascular congestion, in addition to the right lower lobe pneumonia. Oxygenation was increased to 3 L, oxygen saturation stable at 95% on 3 L. Patient still somewhat short of breath, but blood pressure is more stable at 119 /74, HR 74. Medical Screen Exam Complete: Yes Emergency Medical Condition: Yes Lab Data Result diagrams: 04/28/18 04:22 04/28/18 04:22 Lab Results 04/27/18 04/27/18 04/27/18 Range/Units 06:30 06:30 06:30 CBC w Diff Slide review pending WBC 1.5 L (4.0-11.0) th/mm3 RBC 4.16 L (4.50-5.90) mil/mm3 Hgb 13.8 (13.0-17.0) gm/dL Hct 40.4 (39.0-51.0) % MCV 97.0 (80.0-100.0) fL MCH 33.1 (27.0-34.0) pg MCHC 34.1 (32.0-36.0) % RDW 13.1 (11.6-17.2) % Plt Count 167 (150-450) th/mm3 MPV 8.0 (7.0-11.0) fL Neut % (Auto) 81.9 H (16.0-70.0) % Lymph % (Auto) 13.3 (9.0-44.0) % Porter % (Auto) 2.6 (0.0-8.0) % Eos % (Auto) 0.5 (0.0-4.0) % Baso % (Auto) 1.7 (0.0-2.0) % Neut # (Auto) 1.2 L (1.8-7.7) th/mm3 Lymph # (Auto) 0.2 L (1.0-4.8) th/mm3 Porter # (Auto) 0.0 (0.0-0.9) th/mm3 Eos # (Auto) 0.0 (0.0-0.4) th/mm3 Baso # (Auto) 0.0 (0.0-0.2) th/mm3 WBC Differential Manual diff final Seg Neuts % (Manual) 72 H (16-70) % Lymphocytes % (Manual) 22 (9-44) % Monocytes % (Manual) 6 (0-8) % Abs Neuts (Manual) 1.1 L (1.8-7.7) th/mm3 Differential Comment . Platelet Estimate Normal (Normal) Platelet Morphology Normal (Normal) RBC Morphology Normal (Normal) PT (9.8-11.6) sec INR Ratio APTT (23.4-31.7) sec Sodium 139 (136-145) meq/L Potassium 4.1 (3.5-5.1) meq/L Chloride 107 (98-107) meq/L Carbon Dioxide 24.8 (21.0-32.0) meq/L Anion Gap 7 (5-15) meq/L BUN 16 (7-18) mg/dL Creatinine 1.40 H (0.60-1.30) mg/dL Estimated GFR 52 L (>89) mL/min POC Glucose (68-110) mg/dl Random Glucose 100 (74-106) mg/dL Lactic Acid (0.4-2.0) mmol/L Calcium 8.2 L (8.5-10.1) mg/dL Phosphorus (2.5-4.9) mg/dL Magnesium (1.5-2.5) mg/dL Total Bilirubin 0.8 (0.2-1.0) mg/dL AST 135 H (15-37) U/L ALT 100 H (12-78) U/L Alkaline Phosphatase 199 H (45-117) U/L Total Creatine Kinase (39-308) U/L Troponin I Less than 0.02 L (0.02-0.05) ng/mL B-Natriuretic Peptide 51 (0-100) pg/mL Total Protein 7.1 (6.4-8.2) g/dL Albumin 3.6 (3.4-5.0) g/dL Lipase (73-393) U/L Ur Collection Type Urine Color (Yellw/Straw) Urine Clarity (Clear) Urine pH (5.0-8.5) Ur Specific [place] (1.002-1.035) Urine Protein (Neg-Trace) mg/dL Urine Glucose (UA) (Negative) mg/dL Urine Ketones (Negative) mg/dL Urine Occult Blood (Negative) Urine Nitrate (Negative) Urine Bilirubin (Negative) Urine Urobilinogen (Less than 2) mg/dL Ur Leukocyte Esterase (Negative) Urine WBC (0-5) /hpf Ur Squamous Epith Cells (0-5) /hpf Urine Mucus (Occasional) /lpf Micro UA Comment Ur Microscopic Review Urine Culture Comments Nasal Screen MRSA (PCR) (Negative) Hepatitis A IgM Ab (Nonreactive) Hep Bs Antigen (Nonreactive) Hep B Core IgM Ab (Nonreactive) Hep C IgG Ab (Nonreactive) 04/27/18 04/27/18 04/27/18 Range/Units 08:43 10:52 11:00 CBC w Diff WBC (4.0-11.0) th/mm3 RBC (4.50-5.90) mil/mm3 Hgb (13.0-17.0) gm/dL Hct (39.0-51.0) % MCV (80.0-100.0) fL MCH (27.0-34.0) pg MCHC (32.0-36.0) % RDW (11.6-17.2) % Plt Count (150-450) th/mm3 MPV (7.0-11.0) fL Neut % (Auto) (16.0-70.0) % Lymph % (Auto) (9.0-44.0) % Porter % (Auto) (0.0-8.0) % Eos % (Auto) (0.0-4.0) % Baso % (Auto) (0.0-2.0) % Neut # (Auto) (1.8-7.7) th/mm3 Lymph # (Auto) (1.0-4.8) th/mm3 Porter # (Auto) (0.0-0.9) th/mm3 Eos # (Auto) (0.0-0.4) th/mm3 Baso # (Auto) (0.0-0.2) th/mm3 WBC Differential Seg Neuts % (Manual) (16-70) % Lymphocytes % (Manual) (9-44) % Monocytes % (Manual) (0-8) % Abs Neuts (Manual) (1.8-7.7) th/mm3 Differential Comment Platelet Estimate (Normal) Platelet Morphology (Normal) RBC Morphology (Normal) PT (9.8-11.6) sec INR Ratio APTT (23.4-31.7) sec Sodium (136-145) meq/L Potassium (3.5-5.1) meq/L Chloride (98-107) meq/L Carbon Dioxide (21.0-32.0) meq/L Anion Gap (5-15) meq/L BUN (7-18) mg/dL Creatinine (0.60-1.30) mg/dL Estimated GFR (>89) mL/min POC Glucose (68-110) mg/dl Random Glucose (74-106) mg/dL Lactic Acid 1.2 (0.4-2.0) mmol/L Calcium (8.5-10.1) mg/dL Phosphorus (2.5-4.9) mg/dL Magnesium (1.5-2.5) mg/dL Total Bilirubin (0.2-1.0) mg/dL AST (15-37) U/L ALT (12-78) U/L Alkaline Phosphatase (45-117) U/L Total Creatine Kinase (39-308) U/L Troponin I Less than 0.02 L (0.02-0.05) ng/mL B-Natriuretic Peptide (0-100) pg/mL Total Protein (6.4-8.2) g/dL Albumin (3.4-5.0) g/dL Lipase (73-393) U/L Ur Collection Type Clean catch Urine Color Yellow (Yellw/Straw) Urine Clarity Clear (Clear) Urine pH 5.5 (5.0-8.5) Ur Specific [place] Greater/equal 1.030 (1.002-1.035) Urine Protein Negative (Neg-Trace) mg/dL Urine Glucose (UA) Negative (Negative) mg/dL Urine Ketones Trace H (Negative) mg/dL Urine Occult Blood Negative (Negative) Urine Nitrate Negative (Negative) Urine Bilirubin Negative (Negative) Urine Urobilinogen 2.0 H (Less than 2) mg/dL Ur Leukocyte Esterase Negative (Negative) Urine WBC 0-5 (0-5) /hpf Ur Squamous Epith Cells 0-5 (0-5) /hpf Urine Mucus Few H (Occasional) /lpf Micro UA Comment Culture not ind Ur Microscopic Review Microscopic reviewed Urine Culture Comments Culture not ind Nasal Screen MRSA (PCR) (Negative) Hepatitis A IgM Ab (Nonreactive) Hep Bs Antigen (Nonreactive) Hep B Core IgM Ab (Nonreactive) Hep C IgG Ab (Nonreactive) 04/27/18 04/27/18 04/27/18 Range/Units 11:38 11:38 14:35 CBC w Diff WBC (4.0-11.0) th/mm3 RBC (4.50-5.90) mil/mm3 Hgb (13.0-17.0) gm/dL Hct (39.0-51.0) % MCV (80.0-100.0) fL MCH (27.0-34.0) pg MCHC (32.0-36.0) % RDW (11.6-17.2) % Plt Count (150-450) th/mm3 MPV (7.0-11.0) fL Neut % (Auto) (16.0-70.0) % Lymph % (Auto) (9.0-44.0) % Porter % (Auto) (0.0-8.0) % Eos % (Auto) (0.0-4.0) % Baso % (Auto) (0.0-2.0) % Neut # (Auto) (1.8-7.7) th/mm3 Lymph # (Auto) (1.0-4.8) th/mm3 Porter # (Auto) (0.0-0.9) th/mm3 Eos # (Auto) (0.0-0.4) th/mm3 Baso # (Auto) (0.0-0.2) th/mm3 WBC Differential Seg Neuts % (Manual) (16-70) % Lymphocytes % (Manual) (9-44) % Monocytes % (Manual) (0-8) % Abs Neuts (Manual) (1.8-7.7) th/mm3 Differential Comment Platelet Estimate (Normal) Platelet Morphology (Normal) RBC Morphology (Normal) PT (9.8-11.6) sec INR Ratio APTT (23.4-31.7) sec Sodium (136-145) meq/L Potassium (3.5-5.1) meq/L Chloride (98-107) meq/L Carbon Dioxide (21.0-32.0) meq/L Anion Gap (5-15) meq/L BUN (7-18) mg/dL Creatinine (0.60-1.30) mg/dL Estimated GFR (>89) mL/min POC Glucose (68-110) mg/dl Random Glucose (74-106) mg/dL Lactic Acid 1.9 (0.4-2.0) mmol/L Calcium (8.5-10.1) mg/dL Phosphorus (2.5-4.9) mg/dL Magnesium (1.5-2.5) mg/dL Total Bilirubin (0.2-1.0) mg/dL AST (15-37) U/L ALT (12-78) U/L Alkaline Phosphatase (45-117) U/L Total Creatine Kinase 90 (39-308) U/L Troponin I (0.02-0.05) ng/mL B-Natriuretic Peptide 76 (0-100) pg/mL Total Protein (6.4-8.2) g/dL Albumin (3.4-5.0) g/dL Lipase 48 L (73-393) U/L Ur Collection Type Urine Color (Yellw/Straw) Urine Clarity (Clear) Urine pH (5.0-8.5) Ur Specific [place] (1.002-1.035) Urine Protein (Neg-Trace) mg/dL Urine Glucose (UA) (Negative) mg/dL Urine Ketones (Negative) mg/dL Urine Occult Blood (Negative) Urine Nitrate (Negative) Urine Bilirubin (Negative) Urine Urobilinogen (Less than 2) mg/dL Ur Leukocyte Esterase (Negative) Urine WBC (0-5) /hpf Ur Squamous Epith Cells (0-5) /hpf Urine Mucus (Occasional) /lpf Micro UA Comment Ur Microscopic Review Urine Culture Comments Nasal Screen MRSA (PCR) (Negative) Hepatitis A IgM Ab (Nonreactive) Hep Bs Antigen (Nonreactive) Hep B Core IgM Ab (Nonreactive) Hep C IgG Ab (Nonreactive) 04/27/18 04/27/18 04/27/18 Range/Units 14:35 17:30 18:35 CBC w Diff WBC (4.0-11.0) th/mm3 RBC (4.50-5.90) mil/mm3 Hgb (13.0-17.0) gm/dL Hct (39.0-51.0) % MCV (80.0-100.0) fL MCH (27.0-34.0) pg MCHC (32.0-36.0) % RDW (11.6-17.2) % Plt Count (150-450) th/mm3 MPV (7.0-11.0) fL Neut % (Auto) (16.0-70.0) % Lymph % (Auto) (9.0-44.0) % Porter % (Auto) (0.0-8.0) % Eos % (Auto) (0.0-4.0) % Baso % (Auto) (0.0-2.0) % Neut # (Auto) (1.8-7.7) th/mm3 Lymph # (Auto) (1.0-4.8) th/mm3 Porter # (Auto) (0.0-0.9) th/mm3 Eos # (Auto) (0.0-0.4) th/mm3 Baso # (Auto) (0.0-0.2) th/mm3 WBC Differential Seg Neuts % (Manual) (16-70) % Lymphocytes % (Manual) (9-44) % Monocytes % (Manual) (0-8) % Abs Neuts (Manual) (1.8-7.7) th/mm3 Differential Comment Platelet Estimate (Normal) Platelet Morphology (Normal) RBC Morphology (Normal) PT (9.8-11.6) sec INR Ratio APTT (23.4-31.7) sec Sodium (136-145) meq/L Potassium (3.5-5.1) meq/L Chloride (98-107) meq/L Carbon Dioxide (21.0-32.0) meq/L Anion Gap (5-15) meq/L BUN (7-18) mg/dL Creatinine (0.60-1.30) mg/dL Estimated GFR (>89) mL/min POC Glucose 263 H (68-110) mg/dl Random Glucose (74-106) mg/dL Lactic Acid (0.4-2.0) mmol/L Calcium (8.5-10.1) mg/dL Phosphorus (2.5-4.9) mg/dL Magnesium (1.5-2.5) mg/dL Total Bilirubin (0.2-1.0) mg/dL AST (15-37) U/L ALT (12-78) U/L Alkaline Phosphatase (45-117) U/L Total Creatine Kinase (39-308) U/L Troponin I (0.02-0.05) ng/mL B-Natriuretic Peptide (0-100) pg/mL Total Protein (6.4-8.2) g/dL Albumin (3.4-5.0) g/dL Lipase (73-393) U/L Ur Collection Type Urine Color (Yellw/Straw) Urine Clarity (Clear) Urine pH (5.0-8.5) Ur Specific [place] (1.002-1.035) Urine Protein (Neg-Trace) mg/dL Urine Glucose (UA) (Negative) mg/dL Urine Ketones (Negative) mg/dL Urine Occult Blood (Negative) Urine Nitrate (Negative) Urine Bilirubin (Negative) Urine Urobilinogen (Less than 2) mg/dL Ur Leukocyte Esterase (Negative) Urine WBC (0-5) /hpf Ur Squamous Epith Cells (0-5) /hpf Urine Mucus (Occasional) /lpf Micro UA Comment Ur Microscopic Review Urine Culture Comments Nasal Screen MRSA (PCR) Not detected (Negative) Hepatitis A IgM Ab Nonreactive (Nonreactive) Hep Bs Antigen Nonreactive (Nonreactive) Hep B Core IgM Ab Nonreactive (Nonreactive) Hep C IgG Ab Nonreactive (Nonreactive) 04/27/18 04/28/18 04/28/18 Range/Units 23:25 04:22 04:22 CBC w Diff Auto diff final WBC 7.3 D (4.0-11.0) th/mm3 RBC 3.36 L (4.50-5.90) mil/mm3 Hgb 10.9 L D (13.0-17.0) gm/dL Hct 32.7 L (39.0-51.0) % MCV 97.2 (80.0-100.0) fL MCH 32.3 (27.0-34.0) pg MCHC 33.2 (32.0-36.0) % RDW 13.4 (11.6-17.2) % Plt Count 134 L (150-450) th/mm3 MPV 8.0 (7.0-11.0) fL Neut % (Auto) 85.9 H (16.0-70.0) % Lymph % (Auto) 7.1 L (9.0-44.0) % Porter % (Auto) 6.4 (0.0-8.0) % Eos % (Auto) 0.4 (0.0-4.0) % Baso % (Auto) 0.2 (0.0-2.0) % Neut # (Auto) 6.3 (1.8-7.7) th/mm3 Lymph # (Auto) 0.5 L (1.0-4.8) th/mm3 Porter # (Auto) 0.5 (0.0-0.9) th/mm3 Eos # (Auto) 0.0 (0.0-0.4) th/mm3 Baso # (Auto) 0.0 (0.0-0.2) th/mm3 WBC Differential . Seg Neuts % (Manual) (16-70) % Lymphocytes % (Manual) (9-44) % Monocytes % (Manual) (0-8) % Abs Neuts (Manual) (1.8-7.7) th/mm3 Differential Comment . Platelet Estimate (Normal) Platelet Morphology (Normal) RBC Morphology (Normal) PT 11.6 (9.8-11.6) sec INR 1.1 Ratio APTT 32.7 H (23.4-31.7) sec Sodium (136-145) meq/L Potassium (3.5-5.1) meq/L Chloride (98-107) meq/L Carbon Dioxide (21.0-32.0) meq/L Anion Gap (5-15) meq/L BUN (7-18) mg/dL Creatinine (0.60-1.30) mg/dL Estimated GFR (>89) mL/min POC Glucose 88 (68-110) mg/dl Random Glucose (74-106) mg/dL Lactic Acid (0.4-2.0) mmol/L Calcium (8.5-10.1) mg/dL Phosphorus (2.5-4.9) mg/dL Magnesium (1.5-2.5) mg/dL Total Bilirubin (0.2-1.0) mg/dL AST (15-37) U/L ALT (12-78) U/L Alkaline Phosphatase (45-117) U/L Total Creatine Kinase (39-308) U/L Troponin I (0.02-0.05) ng/mL B-Natriuretic Peptide (0-100) pg/mL Total Protein (6.4-8.2) g/dL Albumin (3.4-5.0) g/dL Lipase (73-393) U/L Ur Collection Type Urine Color (Yellw/Straw) Urine Clarity (Clear) Urine pH (5.0-8.5) Ur Specific [place] (1.002-1.035) Urine Protein (Neg-Trace) mg/dL Urine Glucose (UA) (Negative) mg/dL Urine Ketones (Negative) mg/dL Urine Occult Blood (Negative) Urine Nitrate (Negative) Urine Bilirubin (Negative) Urine Urobilinogen (Less than 2) mg/dL Ur Leukocyte Esterase (Negative) Urine WBC (0-5) /hpf Ur Squamous Epith Cells (0-5) /hpf Urine Mucus (Occasional) /lpf Micro UA Comment Ur Microscopic Review Urine Culture Comments Nasal Screen MRSA (PCR) (Negative) Hepatitis A IgM Ab (Nonreactive) Hep Bs Antigen (Nonreactive) Hep B Core IgM Ab (Nonreactive) Hep C IgG Ab (Nonreactive) 04/28/18 04/28/18 04/28/18 Range/Units 04:22 04:22 06:08 CBC w Diff WBC (4.0-11.0) th/mm3 RBC (4.50-5.90) mil/mm3 Hgb (13.0-17.0) gm/dL Hct (39.0-51.0) % MCV (80.0-100.0) fL MCH (27.0-34.0) pg MCHC (32.0-36.0) % RDW (11.6-17.2) % Plt Count (150-450) th/mm3 MPV (7.0-11.0) fL Neut % (Auto) (16.0-70.0) % Lymph % (Auto) (9.0-44.0) % [place] % (Auto) (0.0-8.0) % Eos % (Auto) (0.0-4.0) % Baso % (Auto) (0.0-2.0) % Neut # (Auto) (1.8-7.7) th/mm3 Lymph # (Auto) (1.0-4.8) th/mm3 [place] # (Auto) (0.0-0.9) th/mm3 Eos # (Auto) (0.0-0.4) th/mm3 Baso # (Auto) (0.0-0.2) th/mm3 WBC Differential Seg Neuts % (Manual) (16-70) % Lymphocytes % (Manual) (9-44) % Monocytes % (Manual) (0-8) % Abs Neuts (Manual) (1.8-7.7) th/mm3 Differential Comment Platelet Estimate (Normal) Platelet Morphology (Normal) RBC Morphology (Normal) PT (9.8-11.6) sec INR Ratio APTT (23.4-31.7) sec Sodium 140 (136-145) meq/L Potassium 3.9 (3.5-5.1) meq/L Chloride 106 (98-107) meq/L Carbon Dioxide 27.1 (21.0-32.0) meq/L Anion Gap 7 (5-15) meq/L BUN 16 (7-18) mg/dL Creatinine 1.10 (0.60-1.30) mg/dL Estimated GFR 69 L (>89) mL/min POC Glucose 99 (68-110) mg/dl Random Glucose 101 (74-106) mg/dL Lactic Acid 1.5 (0.4-2.0) mmol/L Calcium 7.7 L (8.5-10.1) mg/dL Phosphorus 2.6 (2.5-4.9) mg/dL Magnesium 2.0 (1.5-2.5) mg/dL Total Bilirubin 0.8 (0.2-1.0) mg/dL AST 36 (15-37) U/L ALT 51 (12-78) U/L Alkaline Phosphatase 119 H (45-117) U/L Total Creatine Kinase (39-308) U/L Troponin I (0.02-0.05) ng/mL B-Natriuretic Peptide (0-100) pg/mL Total Protein 5.8 L D (6.4-8.2) g/dL Albumin 2.7 L D (3.4-5.0) g/dL Lipase (73-393) U/L Ur Collection Type Urine Color (Yellw/Straw) Urine Clarity (Clear) Urine pH (5.0-8.5) Ur Specific [place] (1.002-1.035) Urine Protein (Neg-Trace) mg/dL Urine Glucose (UA) (Negative) mg/dL Urine Ketones (Negative) mg/dL Urine Occult Blood (Negative) Urine Nitrate (Negative) Urine Bilirubin (Negative) Urine Urobilinogen (Less than 2) mg/dL Ur Leukocyte Esterase (Negative) Urine WBC (0-5) /hpf Ur Squamous Epith Cells (0-5) /hpf Urine Mucus (Occasional) /lpf Micro UA Comment Ur Microscopic Review Urine Culture Comments Nasal Screen MRSA (PCR) (Negative) Hepatitis A IgM Ab (Nonreactive) Hep Bs Antigen (Nonreactive) Hep B Core IgM Ab (Nonreactive) Hep C IgG Ab (Nonreactive) Imaging Data Radiologist's impression: Liver Ultrasound 04/27/18 00:00 CONCLUSION: 1. Status post cholecystectomy. 2. Prominent liver with no focal abnormality. 3. Small cysts in the right kidney. Venous Doppler Study 04/27/18 00:00 CONCLUSION: 1. Negative examination with no evidence of deep venous thrombosis. Chest X-Ray 04/27/18 06:26 CONCLUSION: Increasing consolidation right lower lobe. Chest X-Ray 04/27/18 10:40 CONCLUSION: 1. More mid inspiratory exam with crowding of the lung vasculature. 2. No significant change in the right lung infiltrate. There is patchy infiltrate in the left perihilar region as well. Chest X-Ray 04/28/18 06:00 CONCLUSION: Slight decrease in bilateral right greater than left pulmonary opacity. ECG Data Attestation: I personally reviewed and interpreted this ECG as follows: Interpretation: Initial EKG taken at 0815 hrs. is generally unremarkable, primarily showing left axis deviation. Baseline rhythm is sinus at 86 bpm. QRS morphology shows questionably low voltage, but borderline left axis deviation at -23 degrees, QRS interval is normal at [address] segments and T waves are generally flattened, but with no acute elevations or depressions, no T wave inversions. IA interval is normal at 155 ms, QT interval is normal at 407 ms corrected. Repeat EKG taken at 1049 is unchanged from prior tracing 2 hours earlier. Baseline rhythm is sinus at 76 bpm, with no ectopy. QRS morphology is normal, with persistent borderline left axis deviation at -23 degrees. IA interval is normal at 170 ms, QRS interval is normal at 94 ms, and QT interval is normal at [address] segments and T waves are again mildly flattened, but generally normal, with no acute elevations or depressions, but no T wave inversions, and represents no change from the prior tracing. Discharge Plan Discharge Disposition Patient Disposition: ED Admit(ED Internal Use Only) Discharge Condition Condition: Stable Discharge Order Discharge Orders: ED Use Only Admit Order (Routine); Ordered 04/27/18 Ordered By: Salinas Reyes Discharge Details Diagnosis: Pneumonia, Hypoxemia, Fluid overload Physicians Team ED Provider: Salinas Reyes Attending Provider: Fercho Antonio Other Providers: Pancho Lugo V Status ED Status: Left Department Discharge Information Discharge Date/Time: 04/27/18 13:24
[2018-04-27 06:48] LABS: Baso % (Auto) 1.7 % (0.0-2.0); Eos % (Auto) 0.5 % (0.0-4.0); Hematocrit 40.4 % (39.0-51.0); Hemoglobin 13.8 gm/dL (13.0-17.0); Lymph # (Auto) 0.2 th/mm3 (1.0-4.8); Lymph % (Auto) 13.3 % (9.0-44.0); Mean Corpuscular HGB Conc 34.1 % (32.0-36.0); Mean Corpuscular Hemoglobin 33.1 pg (27.0-34.0); Mono % (Auto) 2.6 % (0.0-8.0); Neut # (Auto) 1.2 th/mm3 (1.8-7.7); Neut % (Auto) 81.9 % (16.0-70.0); Platelet Count 167 th/mm3 (150-450); Red Blood Count 4.16 mil/mm3 (4.50-5.90); Red Cell Distribution Width 13.1 % (11.6-17.2); White Blood Count 1.5 th/mm3 (4.0-11.0)
[2018-04-27 07:06] LABS: Chloride 107 meq/L (98-107); Potassium 4.1 meq/L (3.5-5.1); Sodium 139 meq/L (136-145)
[2018-04-27 07:09] LABS: Albumin 3.6 g/dL (3.4-5.0); Anion Gap 7 meq/L (5-15); Calcium 8.2 mg/dL (8.5-10.1); Carbon Dioxide 24.8 meq/L (21.0-32.0); Glucose,Random 100 mg/dL (74-106)
[2018-04-27 07:10] LABS: Blood Urea Nitrogen 16 mg/dL (7-18)
[2018-04-27 07:12] LABS: Alanine Aminotransferase 100 U/L (12-78)
[2018-04-27 07:13] LABS: Aspartate Aminotransferase 135 U/L (15-37); Glomerular Filtration Rate 52 mL/min (>89)
[2018-04-27 07:14] LABS: Total Protein 7.1 g/dL (6.4-8.2)
[2018-04-27 07:15] LABS: Alkaline Phosphatase 199 U/L (45-117)
--- NOTE | 2018-04-27 07:29 | XR ---
EXAM DATE: 04/27/2018 7:00 AM EST AGE/SEX: 58 years / Male INDICATIONS: Short of Breath CLINICAL DATA: This is the patient's initial encounter. Patient reports that signs and symptoms have been present for 1 day and indicates a pain score of 0/10. MEDICAL/SURGICAL HISTORY: None. None. COMPARISON: [facility], CHEST SINGLE AP, 10/08/2017. . FINDINGS: Increasing consolidation in the right lower lobe. Stable parenchymal changes left base. The heart and pulmonary vascularity are normal. The portion of the bony skeleton visualized is unremarkable. CONCLUSION: Increasing consolidation right lower lobe. Electronically signed by: Fidel Magana MD 04/27/2018 7:28 AM EST
[2018-04-27 07:44] LABS: Lymphocytes 22 % (9-44); Monocytes 6 % (0-8); RBC Morphology Normal (Normal)
[2018-04-27 07:45] LABS: Platelet Estimate Normal (Normal); Platelet Morphology Normal (Normal)
[2018-04-27] MEDS ORDERED: Sod Chloride 0.9% Inj 1,000 ML IV.SIG ONE ×3 (08:20→10:13)
[2018-04-27] MEDS ORDERED: Azithromycin Inj 500 MG in Sodium Chlor 0.9% Inj 250 ML IV.SIG SCH (09:00)
--- NOTE | 2018-04-27 11:12 | XR ---
EXAM DATE: 04/27/2018 11:01 AM EST AGE/SEX: 58 years / Male INDICATIONS: Worsening Shortness of Breath. Follow-up pulmonary consolidation. CLINICAL DATA: This is the patient's subsequent encounter. Patient reports that signs and symptoms h ave been present for 1 day and indicates a pain score of 0/10. MEDICAL/SURGICAL HISTORY: None. None. COMPARISON: [facility], CHEST 1V SINGLE AP, 04/27/2018. . FINDINGS: A single AP erect portable view of the chest was obtained. The study is more mid inspiratory with microsoft dynamics developer wding of the lung vasculature. Consolidative opacity remains in the right perihilar region and right lung base without significant change. There is milder patchy opacity in left perihilar region. There is no effusion. The heart size remains at the upper limits of normal. The bony thorax is intact. CONCLUSION: 1. More mid inspiratory exam with crowding of the lung vasculature. 2. No significant change in the right lung infiltrate. There is patchy infiltrate in the left perihi lar region as well. Electronically signed by: Fercho Vernon MD 04/27/2018 11:11 AM EST
[2018-04-27 11:23] LABS: Bilirubin,Urine Negative (Negative); Clarity,Urine Clear (Clear); Color,Urine Yellow (Yellw/Straw); Glucose,Urine (UA) Negative (Negative); Leukocyte Esterase,Urine Negative (Negative); Nitrite,Urine Negative (Negative); PH,Urine 5.5 (5.0-8.5); Specific Gravity,Urine Greater/Equal 1.030 (1.002-1.035)
[2018-04-27 11:33] LABS: Mucus,Urine Few /lpf (Occasional); Squamous Epithelial Cell,Urine 0-5 /hpf (0-5); WBC,Urine 0-5 /hpf (0-5)
[2018-04-27] MEDS ORDERED: Bisacodyl 10 MG Supp RECTAL PRN (13:09)
[2018-04-27] MEDS ORDERED: Magnesium Sulfate Inj 4 GM in Sodium Chlor 0.9% Inj 92 ML IV.SIG PRN (13:12)
[2018-04-27] MEDS ORDERED: Magnesium Sulfate Inj 2 GM in Sodium Chlor 0.9% Inj 96 ML IV.SIG PRN (13:12)
[2018-04-27] MEDS ORDERED: Sodium Phosphate Inj 30 MMOL in Sodium Chlor 0.9% Inj 250 ML IV.SIG PRN (13:12)
[2018-04-27] MEDS ORDERED: Potassium Chlor 20 mEq Premix 20 MEQ/100 ML PIGGYBACK IV.SIG PRN ×2 (13:12)
[2018-04-27] MEDS ORDERED: Potassium Chlor 40 mEq Premix 40 MEQ/100 ML PIGGYBACK IV.SIG PRN ×2 (13:12)
[2018-04-27] MEDS ORDERED: Potassium Phosphate Inj 30 MMOL in Sodium Chlor 0.9% Inj 250 ML IV.SIG PRN (13:12)
[2018-04-27] MEDS ORDERED: Potassium Phosphate 500 MG Soluble Tablet PO PRN ×2 (13:12)
[2018-04-27] MEDS ORDERED: Magnesium Oxide 400 MG Tablet PO PRN (13:12)
[2018-04-27] MEDS ORDERED: Potassium Chloride 25 MEQ Effervescent Tablet PO PRN (13:12)
[2018-04-27] MEDS ORDERED: Dextrose 50% in Water 50 ML Vial IV.PUSH PRN (13:13)
[2018-04-27] MEDS ORDERED: Sod Chloride 0.9% Inj 1,000 ML IV.CONT SCH (13:15)
--- NOTE | 2018-04-27 13:23 | P.HPCC ---
History of Present Illness Service: Critical care medicine Primary Care Physician: Leroy Osborne Chief Complaint: Shortness of breath - Diagnosis (1) Community acquired pneumonia (2) Leukopenia (3) Acute kidney injury (4) Elevated levels of transaminase & lactic acid dehydrogenase (5) Depression (6) Peripheral neuropathy (7) Migraine headache (8) Pleuritic chest pain (9) Critical illness neuropathy (10) History of essential hypertension (11) Acute respiratory insufficiency Inpatient Certification: I certify that the inpatient services were ordered in accordance with Medicare regulations governing the order. This includes certification that hospital inpatient services are reasonable and necessary and in the case of services not specified as inpatient-only under 42 CFR 419.22(n), that they are appropriately provided as inpatient services in accordance to with the 2-midnight benchmark under 43 CFR 412.3(e) Estimated Total Length of Stay (Days): 3 Plans for Post Hospital Care: Not yet determined Review of Systems Constitutional: Reports body ache(s), Reports chills, Reports fatigue, Reports fever(s), Reports headache(s), Reports lack of energy, Reports malaise, Reports weakness, Denies anorexia, Denies daytime sleepiness, Denies night sweats, Denies weight loss Eyes: Denies blind spots, Denies blurry vision, Denies bulging eyes Ears, Nose, Mouth, and Throat: Denies abnormal hearing, Denies bad breath, Denies poor balance, Denies post nasal drip, Denies throat swelling, Denies tongue swelling Cardiovascular: Reports chest pain, Reports shortness of breath, Reports shortness of breath with activity, Reports shortness of breath when lying down Respiratory: Reports change in phlegm color, Reports chest congestion, Reports cough, Reports wheezing, Denies coughing up blood, Denies shortness of breath Gastrointestinal: Denies abdominal pain, Denies nausea, Denies vomiting Genitourinary: Denies blood in semen, Denies blood in urine Musculoskeletal: Reports abnormal walking, Reports back pain, Reports body aches , Reports neck pain, Denies limited joint movement Skin/Breast: Denies bleeding lesions, Denies rash, Denies wounds Neurologic: Reports abnormal movements, Denies abnormal hearing Psychiatric: Reports anxiety, Reports depression, Denies abnormal sleep pattern , Denies confusion Endocrine: Denies cold intolerance, Denies excessive sweating Hematologic/Lymphatic: Denies easy bleeding Allergic/Immunologic: Denies GI upset with certain foods PMFSH - History History Provided By: Patient - Medical History Medical History: Medical History (Last Reviewed 04/27/18 @ 13:23 by Ronak Soliman MD) History of hypertension History of neuropathy Hx of pulmonary embolus Hx of recurrent pneumonia - Surgical History Surgical History: Surgical History (Last Reviewed 04/27/18 @ 13:23 by Ronak Soliman MD) Hx of cholecystectomy Hx of gastric bypass Hx of varicose vein stripping Hx of vasectomy - Family History Family History: Family History (Last Updated 04/27/18 @ 13:23 by Ronak Soliman MD) Mother Old age Father Family history of COPD (chronic obstructive pulmonary disease) - Tobacco History Tobacco Use In Past 30 Days: No Smoking Status: Former smoker Tobacco Type: Cigarettes - Alcohol History How Often Do You Have a Drink Containing Alcohol: Monthly or less - Substance Use History Substance History: No History of Abuse - Travel History Recent Travel in the [place] Within the Last 8 Weeks: No Recent Travel Out of the Country Within the Last 8 Weeks: No - Immunization History Tetanus Immunization: >5 Years Medications and Allergies Active Medications: Active Medications Al Hydroxide/Mg Hydroxide (Milk Of Augie Patten) 30 ml PO Q12H PRN PRN Reason: Mild Constipation Albuterol (Albuterol Neb (Prn)) 2.5 mg NEB Q2HR NEB PRN PRN Reason: DYSPNEA Albuterol (Duoneb Neb (Juliane)) 1 ampul NEB Q4HR NEB JULIANE Bisacodyl (Dulcolax Supp) 10 mg RECTAL DAILY PRN PRN Reason: SEVERE CONSITIPATION Chlorhexidine Gluconate (Chlorhexidine 2% Cloth) 3 pack TOPICAL DAILY@0400 PRN PRN Reason: Extra cloth needed Stop: 05/03/18 03:59 Chlorhexidine Gluconate (Chlorhexidine 2% Cloth) 3 pack TOPICAL DAILY@0400 JULIANE Stop: 05/03/18 03:59 Chlorhexidine Gluconate (Chlorhexidine 2% Cloth) 3 pack TOPICAL DAILY@0400 JULIANE Stop: 05/03/18 03:59 Chlorhexidine Gluconate (Chlorhexidine 2% Cloth) 3 pack TOPICAL DAILY@0400 PRN PRN Reason: Extra cloth needed Stop: 05/03/18 03:59 Dextrose (D50w Vial) 50 ml IV.PUSH UNSCH PRN PRN Reason: PER HYPOGLYCEMIA PROTOCOL Gabapentin (Neurontin) 800 mg PO Q6H JULIANE Glucagon (Glucagon Inj) 1 mg OTHER PRN PRN PRN Reason: for Hypoglycemia Protocol Heparin Sodium (Porcine) (Heparin Inj) 5,000 units SQ Q12H JULIANE Azithromycin 500 mg/ Sodium (Chloride) 250 mls @ 250 mls/hr IV.SIG Q24H JULIANE Last Infusion: 04/27/18 10:30 Dose: Infused Piperacillin/Tazobactam/Dextrose (Zosyn 4.5 Gm Premix) 4.5 gm in 100 mls @ 200 mls/hr IV.SIG Q6H JULIANE Azithromycin 500 mg/ Sodium (Chloride) 250 mls @ 250 mls/hr IV.SIG Q24H JULIANE Magnesium Sulfate 4 gm/ Sodium (Chloride) 100 mls @ 50 mls/hr IV.SIG UNSCH PRN PRN Reason: For Magnesium 0.9 - 1.1 mg/dL Magnesium Sulfate 2 gm/ Sodium (Chloride) 100 mls @ 50 mls/hr IV.SIG UNSCH PRN PRN Reason: For Magnesium 1.2 - 1.6 mg/dL Potassium Chloride (Kcl 40 Meq Premix Inj) 40 meq in 100 mls @ 25 mls/hr IV.SIG Q2H PRN PRN Reason: For Potassium 2.8 - 3.2 mEq/L Potassium Chloride (Kcl 20 Meq Premix Inj) 20 meq in 100 mls @ 50 mls/hr IV.SIG Q2H PRN PRN Reason: For Potassium 3.3 - 3.5 mEq/L Potassium Chloride (Kcl 20 Meq Premix Inj) 20 meq in 100 mls @ 50 mls/hr IV.SIG Q2H PRN PRN Reason: For Potassium 2.8 - 3.2 mEq/L Potassium Phosphate 30 mmol/ (Sodium Chloride) 260 mls @ 42 mls/hr IV.SIG UNSCH PRN PRN Reason: SEE LABEL COMMENTS Sodium Phosphate 30 mmol/ (Sodium Chloride) 260 mls @ 42 mls/hr IV.SIG UNSCH PRN PRN Reason: For Phosphorus < 2.5 mg/dL Potassium Chloride (Kcl 40 Meq Premix Inj) 40 meq in 100 mls @ 25 mls/hr IV.SIG UNSCH PRN PRN Reason: For Potassium 3.3 - 3.5 mEq/L Insulin Aspart (Novolog Insulin Correctional Sugar Inj) 0 unit SQ Q6HR JULIANE; Protocol Lactulose (Lactulose Liq) 30 ml PO DAILY PRN PRN Reason: SEVERE CONSITIPATION Magnesium Oxide (Mag-Ox) 800 mg PO UNSCH PRN PRN Reason: For Magnesium 1.2 - 1.6 mg/dL Non-Formulary Medication (Mirtazapine [Mirtazapine]) 30 mg PO DAILY REPLACED BY [facility] Non-Formulary Medication (Tizanidine [Tizanidine]) 4 mg PO TID REPLACED BY [facility] Non-Formulary Medication (Fluoxetine [Fluoxetine]) 40 mg PO DAILY REPLACED BY [facility] Ondansetron HCl (Zofran Inj) 4 mg IV.PUSH Q6H PRN PRN Reason: NAUSEA OR VOMITING Oxycodone/Acetaminophen (Percocet 5/325 Mg) 1 tab PO Q4H PRN PRN Reason: PAIN SCALE 1 TO 10 Pantoprazole Sodium (Protonix) 40 mg PO DAILY REPLACED BY [facility] Potassium Bicarb/Potassium Chloride (K-Lyte Cl Eff) 50 meq PO UNSCH PRN PRN Reason: For Potassium 3.3 - 3.5 mEq/L Potassium Phosphate (K-Phos Original) 2,000 mg PO Q4H PRN PRN Reason: Phosphorus Less Than 2.5 mg/dL Potassium Phosphate (K-Phos Original) 2,000 mg PO UNSCH PRN PRN Reason: SEE LABEL COMMENTS Senna/Docusate Sodium (Harini-Colace) 1 tab PO BID REPLACED BY [facility] Sennosides (Senokot) 17.2 mg PO Q12H PRN PRN Reason: Moderate Constipation Sodium Chloride (Ns Flush) 2 ml IV.FLUSH UNSCH PRN PRN Reason: FLUSH AFTER USING IV ACCESS Sodium Chloride (Ns Flush) 2 ml IV.FLUSH BID REPLACED BY [facility] Sodium Chloride (Ns Flush) 2 ml IV.FLUSH PRN PRN PRN Reason: FLUSH AFTER USING IV ACCESS Sodium Chloride (Ns Flush) 2 ml IV.FLUSH BID JULIANE Sodium Chloride (Ns Flush) 2 ml IV.FLUSH PRN PRN PRN Reason: FLUSH AFTER USING IV ACCESS Allergies Allergy/AdvReac Type Severity Reaction Status Date / Time acetaminophen [From Lortab] AdvReac Itching Verified 04/27/18 07:19 hydrocodone [From Lortab] AdvReac Itching Verified 04/27/18 07:19 Home Medications Medication Instructions Recorded Confirmed Type fluoxetine 40 mg PO DAILY 04/27/18 04/27/18 History gabapentin 800 mg PO Q6H 04/27/18 04/27/18 History hydrochlorothiazide 12.5 mg PO DAILY 04/27/18 04/27/18 History mirtazapine 30 mg PO DAILY 04/27/18 04/27/18 History oxycodone-acetaminophen 1 tab PO Q6H PRN 04/27/18 04/27/18 History rizatriptan 1 tab PO DAILY 04/27/18 04/27/18 History tizanidine 4 mg PO TID 04/27/18 04/27/18 History Results - Labs CBC & Chem 7: 04/27/18 06:30 04/27/18 06:30 Labs: Short CBC 04/27/18 Range/Units 06:30 WBC 1.5 L (4.0-11.0) th/mm3 Hgb 13.8 (13.0-17.0) gm/dL Hct 40.4 (39.0-51.0) % Plt Count 167 (150-450) th/mm3 BMP 04/27/18 06:30 Sodium 139 Potassium 4.1 Chloride 107 Carbon Dioxide 24.8 BUN 16 Creatinine 1.40 H Calcium 8.2 L Cardiac Enzymes 04/27/18 04/27/18 Range/Units 06:30 10:52 Troponin I Less than 0.02 L Less than 0.02 L (0.02-0.05) ng/mL Liver Function 04/27/18 Range/Units 06:30 Total Bilirubin 0.8 (0.2-1.0) mg/dL AST 135 H (15-37) U/L ALT 100 H (12-78) U/L Alkaline Phosphatase 199 H (45-117) U/L Albumin 3.6 (3.4-5.0) g/dL Urine 04/27/18 Range/Units 11:00 Urine Color Yellow (Yellw/Straw) Urine Clarity Clear (Clear) Urine pH 5.5 (5.0-8.5) Ur Specific [place] Greater/equal 1.030 (1.002-1.035) Urine Protein Negative (Neg-Trace) mg/dL Urine Glucose (UA) Negative (Negative) mg/dL - Imaging Impressions Chest X-Ray 04/27/18 06:26 CONCLUSION: Increasing consolidation right lower lobe. Chest X-Ray 04/27/18 10:40 CONCLUSION: 1. More mid inspiratory exam with crowding of the lung vasculature. 2. No significant change in the right lung infiltrate. There is patchy infiltrate in the left perihilar region as well. Exam Vital signs: Vital Signs 04/27/18 06:13 04/27/18 06:20 04/27/18 06:30 Temperature 99.4 F 99.4 F Pulse Rate 112 H 112 H Respiratory Rate 22 20 Blood Pressure 109/60 109/60 Pulse Oximetry 83 L 83 L 95 04/27/18 06:43 04/27/18 07:12 04/27/18 07:48 Temperature 99.3 F Pulse Rate 96 H 87 Respiratory Rate 22 24 Blood Pressure 95/55 L 106/61 Pulse Oximetry 93 L 95 04/27/18 08:07 04/27/18 08:20 04/27/18 09:13 Temperature 98.9 F Pulse Rate 78 82 80 Respiratory Rate 18 20 20 Blood Pressure 111/64 Pulse Oximetry 94 L 95 95 04/27/18 09:36 04/27/18 11:00 04/27/18 11:42 Temperature Pulse Rate 85 82 81 Respiratory Rate 18 20 18 Blood Pressure 117/70 119/73 110/64 Pulse Oximetry 94 L 95 96 Intake & Output 04/26/18 04/27/18 04/27/18 18:59 06:59 18:59 Intake Total 2350 / 2350 Output Total 400 / 400 Balance 1949 / 1949 Weight 106.2 kg Intake: IV 2350 / 2350 Azithromycin Inj 500 MG In NS 250 / 250 Inj 250 ML @ 250 mls/hr IV.SIG Q24H JULIANE Rx#:[id number] NS Inj 1,000 ML @ Wide Open IV. 1999 SIG BOLUS ONE Rx#:[id number] Rocephin Inj 1,000 MG In NS Inj 100 / 100 100 ML @ 200 mls/hr IV.SIG ONCE ONE Rx#:[id number] Output: Urine 400 / 400 - Constitutional mild distress - Routine HEENT Exam Head: Present: normocephalic, atraumatic Eye: Present: EOMI, PERRL, normal accommodation ENT: Present: mucous membranes moist - Routine Neck Exam Present: supple, full ROM. Absent: JVD, carotid bruit - Routine Chest/Breast/Axilla Exam Chest wall: Absent: tenderness Breast: Absent: tenderness Axillae: Absent: lymphadenopathy - Routine Respiratory Exam Present: rhonchi, wheezes. Absent: accessory muscle use, distant breath sounds - Routine Cardiovascular Exam Present: RRR, S1, S2. Absent: murmur - Routine Abdominal Exam Present: soft, normoactive bowel sounds, surgical scars - Routine Extremities Exam Present: edema. Absent: cyanosis, clubbing - Routine Skin Exam Present: intact - Routine Neurological Exam Present: alert, oriented X3, CN II-XII intact, sensory deficit. Absent: motor deficit Septic Shock Reassessment Septic shock perfusion: reassessment completed Caprini VTE Risk Assessment Caprini VTE Risk Assessment: No/Low Risk (score <= 1) Caprini Risk Assessment Model: Point Value = 1 Point Value = 2 Point Value = 3 Point Value = 5 Age 41-60 Minor surgery BMI > 25 kg/m2 Swollen legs Varicose veins or History of unexplained or recurrent spontaneous Oral contraceptives or hormone replacement Sepsis (< 1 month) Serious lung disease, including pneumonia (< 1 month) Abnormal pulmonary function Acute myocardial infarction Congestive heart failure (< 1 month) History of inflammatory bowel disease Medical patient at bed rest Age 61-74 Arthroscopic surgery Major open surgery (> 45 min) Laparoscopic surgery (> 45 min) Malignancy Confined to bed (> 72 hours) Immobilizing plaster cast Central venous access Age >= 75 History of VTE Family history of VTE Factor V Leiden Prothrombin [id number] Lupus anticoagulant Anticardiolipin antibodies Elevated serum homocysteine Heparin-induced thrombocytopenia Other congenital or acquired thrombophilia Stroke (< 1 month) Elective arthroplasty Hip, pelvis, or leg fracture Acute spinal cord injury (< 1 month) Prophylaxis Regimen: Total Risk Factor Score Risk Level Prophylaxis Regimen 0-1 Low Early ambulation 2 Moderate Order ONE of the following: *Sequential Compression Device (SCD) *Heparin 5000 units SQ BID 3-4 Higher Order ONE of the following medications: *Heparin 5000 units SQ TID *Enoxaparin/Lovenox 40 mg SQ daily (WT < 150 kg, CrCl > 30 mL/min) *Enoxaparin/Lovenox 30 mg SQ daily (WT < 150 kg, CrCl > 10-29 mL/min) *Enoxaparin/Lovenox 30 mg SQ BID (WT < 150 kg, CrCl > 30 mL/min) AND/OR *Sequential Compression Device (SCD) 5 or more Highest Order ONE of the following medications: *Heparin 5000 units SQ TID (Preferred with Epidurals) *Enoxaparin/Lovenox 40 mg SQ daily (WT < 150 kg, CrCl > 30 mL/min) *Enoxaparin/Lovenox 30 mg SQ daily (WT < 150 kg, CrCl > 10-29 mL/min) *Enoxaparin/Lovenox 30 mg SQ BID (WT < 150 kg, CrCl > 30 mL/min) AND *Sequential Compression Device (SCD) Assessment and Plan - Problem List (1) Community acquired pneumonia Code(s): J18.9 - Pneumonia, unspecified organism Status: Acute (2) Leukopenia Code(s): D72.819 - Decreased white blood cell count, unspecified Status: Acute (3) Acute kidney injury Code(s): N17.9 - Acute kidney failure, unspecified Status: Acute (4) Elevated levels of transaminase & lactic acid dehydrogenase Code(s): R74.0 - Nonspecific elevation of levels of transaminase and lactic acid dehydrogenase [LDH] Status: Acute (5) Depression Code(s): F32.9 - Major depressive disorder, single episode, unspecified Status : Chronic (6) Peripheral neuropathy Code(s): G62.9 - Polyneuropathy, unspecified Status: Chronic (7) Migraine headache Code(s): G43.909 - Migraine, unspecified, not intractable, without status migrainosus Status: Chronic (8) Pleuritic chest pain Code(s): R07.81 - Pleurodynia Status: Acute (9) Critical illness neuropathy Code(s): G62.81 - Critical illness polyneuropathy Status: Chronic (10) History of essential hypertension Code(s): Z86.79 - Personal history of other diseases of the circulatory system Status: Chronic (11) Acute respiratory insufficiency Code(s): R06.89 - Other abnormalities of breathing Status: Acute - Assessment and Plan Plan: Neuro/Psych: History of MOISÉS History of migraine headache Depressive disorder NOS Chronic oxycodone use Patient is on fluoxetine 40 mg daily for depression. Continue Patient is on gabapentin 800 mg 4 times daily for peripheral neuropathy. Continue. Holding mirtazapine with low white blood cell count. Reassess in a.m. Holding rizatriptan for migraine headache. Resume clinic indicated Resume tizanidine 4 mg 3 times daily Oxycodone/acetaminophen 5/25 1 tab every 4 hours as needed pain. Patient is on oxycodone/acetaminophen at home. Verified nonallergic CV: History of essential hypertension Hold hydrochlorothiazide 12.5 mg daily for hypertension. Resume clinically indicated Status post 2 L normal saline ED. Lactate is normal. Check 2D echocardiogram. Monitor closely informed Resp: Acute respiratory insufficiency Community-acquired pneumonia Nasal cannula to maintain saturations greater or equal to 90% Incentive spirometry while awake Albuterol/ipratropium aerosols every 4 to be aggressive every 2 as needed dyspnea Chest x-ray admission revealed right lower lobe infiltrate. Pulmonology consultation requested Follow-up chest x-ray in a.m. 04/28 GI: History of bowel obstruction status post multiple procedures Transaminitis On regular diet Pantoprazole for GI prophylaxis Docusate sodium/senna 1 tablet twice daily for bowel regimen Liver ultrasound ordered Avoid hepatotoxic medications Check CPK and hepatitis panel : Straight catheterization as needed Endo: Sliding scale insulin Accu-Cheks to maintain euglycemia aspart insulin every 6 hours low regimen Check TSH Renal: Acute kidney injury with unknown baseline Monitor urine output Accurate I's and O's BMP in a.m. Avoid nephrotoxic medication Heme: Leukopenia Monitor CBC daily. Follow trends. No indication for transfusion of blood products at this time. Follow-up CBC in a.m. ID: Received ceftriaxone and azithromycin in the ED. We will place on vancomycin, piperacillin/tazobactam and azithromycin. Blood cultures x2, sputum, urine Legionella pneumococcal antigens, chlamydia, mycoplasma and influenza a and B all pending FEN: Replace electrolytes as clinically indicated per ICU electrolyte protocol MSK: Elevated BMI Weight loss encouraged PT evaluate and treat Access -Utilize peripheral IV. Central line if indicated Prophylaxis -GI -pantoprazole -DVT -SCD/heparin subcu Level 2 admission. Patient stable from a critical care medicine standpoint. Assign care to [facility] in AM 1211. Code Status: Full code Discussed Condition With: Patient. ED physician. Care plan discussed all questions answered. (1) Community acquired pneumonia Qualifiers: Laterality: right Lung location: lower lobe of lung Qualified Code(s): J18.1 - Lobar pneumonia, unspecified organism (2) Leukopenia Qualifiers: Leukopenia type: unspecified Qualified Code(s): D72.819 - Decreased white blood cell count, unspecified (5) Depression Qualifiers: Depression Type: major depressive disorder Major depression recurrence: unspecified whether recurrent Active/Remission status: remission status unspecified Qualified Code(s): F32.9 - Major depressive disorder, single episode, unspecified (6) Peripheral neuropathy Qualifiers: Peripheral neuropathy type: polyneuropathy, unspecified Qualified Code(s): G62.9 - Polyneuropathy, unspecified (7) Migraine headache Qualifiers: Migraine type: unspecified Status migrainosus presence: without status migrainosus Intractability: not intractable Qualified Code(s): G43.909 - Migraine, unspecified, not intractable, without status migrainosus
[2018-04-27 15:06] LABS: Lipase 48 U/L (73-393)
--- NOTE | 2018-04-27 15:30 | US ---
EXAM DATE: 04/27/2018 3:27 PM EST AGE/SEX: 58 years / Male INDICATIONS: Bilateral leg swelling. CLINICAL DATA: This is the patient's initial encounter. Patient reports that signs and symptoms have been present for 1 day and indicates a pain score of 0/10. MEDICAL/SURGICAL HISTORY: Hypertension. Neuropathy. Pulmonary embolus. Pneumonia. Cholecystect [place]. Gastric bypass. Varicose vein stripping. Vasectomy. COMPARISON: No prior exams available for comparison. TECHNIQUE: Venous ultrasound of both lower extremities was performed from the inguinal ligament to t he proximal calf. Real-time, color Doppler and spectral tracing, compression and augmentation techni ques were used. FINDINGS: Right Leg: Normal compression of the deep venous system from the inguinal region to the proximal mitul f. No echogenic clot is seen. Normal response of the venous system to augmentation and respiration. Left Leg: Normal compression of the deep venous system from the inguinal region to the proximal calf . No echogenic clot is seen. Normal response of the venous system to augmentation and respiration. Other: None. CONCLUSION: 1. Negative examination with no evidence of deep venous thrombosis. Electronically signed by: Fercho Vernon MD 04/27/2018 3:28 PM EST
[2018-04-27] MEDS: Piperacil/Tazo 4.5 GM Premix 4.5 GM/100 ML BAG IV.SIG SCH ×2 (15:31→20:57)
--- NOTE | 2018-04-27 15:36 | US ---
EXAM DATE: 04/27/2018 3:30 PM EST AGE/SEX: 58 years / Male INDICATIONS: Abdominal pain. CLINICAL DATA: This is the patient's initial encounter. Patient reports that signs and symptoms have been present for 1 day and indicates a pain score of 0/10. MEDICAL/SURGICAL HISTORY: Hypertension. Neuropathy. Pulmonary embolus. Pneumonia. Cholecystect [place]. Gastric bypass. Varicose vein stripping. Vasectomy. COMPARISON: No prior exams available for comparison. MEASUREMENTS: Liver:__ 20.0 cm. Common Bile Duct:__ 7mm. Right Kidney:__ 11.7 x 5.7 x 5.6 cm. FINDINGS: Liver: The liver is prominent measuring up to 20 cm with no focal mass or ductal dilatation. There is no ascites. Portal Vein: Hepatopedal flow seen in portal vein. Common Duct: No intraluminal mass or stone visualized. Gallbladder: Surgically absent. Pancreas: Not well visualized. Right Kidney: Normal in size and shape. There are several small simple cysts noted. There is no nichelle d mass or hydronephrosis. Other: None. CONCLUSION: 1. Status post cholecystectomy. 2. Prominent liver with no focal abnormality. 3. Small cysts in the right kidney. Electronically signed by: Fercho Vernon MD 04/27/2018 3:34 PM EST
[2018-04-27 15:39] LABS: Creatine Kinase 90 U/L (39-308)
[2018-04-27 17:15] LABS: Hepatitits B Surface Antigen Nonreactive (Nonreactive)
[2018-04-27 17:51] LABS: Hepatitis A IgM Antibody Nonreactive (Nonreactive)
[2018-04-27] MEDS: Heparin - SQ 10,000 UNITS/ML Vial SQ SCH (17:51)
[2018-04-27] MEDS: Gabapentin 400 MG Capsule PO SCH ×2 (17:52→23:26)
[2018-04-27] MEDS: Insulin NovoLOG Aspart Correctional Sugar Inj SQ SCH (18:52)
--- NOTE | 2018-04-27 19:08 | ECG ---
Date Performed: 04/27/2018 Time Performed: 08:15:05 PTAGE: 58 years EKG: Sinus rhythm BORDERLINE LEFT AXIS DEVIATION BORDERLINE ECG PREVIOUS TRACING : 10/08/2017 20.51 Since the previous tracing, no significant change noted DOCTOR: Ramiro Benito Interpretating Date/Time 04/27/2018 19:06:55
--- NOTE | 2018-04-27 19:08 | ECG ---
Date Performed: 04/27/2018 Time Performed: 10:49:15 PTAGE: 58 years EKG: Sinus rhythm BORDERLINE LEFT AXIS DEVIATION BORDERLINE ECG PREVIOUS TRACING : 04/27/2018 08.15 Since the previous tracing, no significant change noted DOCTOR: Ramiro Benito Interpretating Date/Time 04/27/2018 19:07:07
[2018-04-27] MEDS: Senna/Docusate Sodium 8.6/50 MG Tablet PO SCH (20:57)
[2018-04-27] MEDS ORDERED: Influenza (Quadrivalent) Vaccine 0.5 ML Syringe IM ONE (21:15)
--- NOTE | 2018-04-27 21:50 | MB ---
cc: Tova Saunders MD DATE: 04/27/2018 REASON FOR CONSULTATION: Pneumonia and hypoxia. HISTORY OF PRESENT ILLNESS: This is a 58-year-old white male with a prior history of pneumonia and previous episodes of respiratory failure who was admitted through the emergency room with shortness of breath, cough, chest congestion and mild hemoptysis. The patient has had a cough for the last 2 days and he became more short of breath and had some chest pressure early in the morning and thus, was brought to the emergency room. He has had multiple episodes of pneumonia in the past and has been in respiratory failure in the past requiring ventilator support. He has a history of extreme obesity for which he had undergone gastric bypass. The patient following admission had a chest x-ray which showed bilateral pulmonary infiltrates consistent with pneumonia. He was then started on oxygen at 2 liters and admitted. He is on IV Zosyn and Zithromax and nebulized bronchodilators and states he feels better. PAST MEDICAL HISTORY: Includes history of hypertension and a history of obesity requiring gastric bypass, following which he lost more than 200 pounds. The patient has had recurrent pneumonias in the past, previous history of DVT and pulmonary emboli and a history for peripheral neuropathy as well as varicose vein stripping of the left leg. He had a cholecystectomy in the past and a vasectomy. ALLERGIES: NO DRUG ALLERGIES ARE LISTED. HABITS: The patient smoked up to 1 pack per day for about 15 years and then quit. Alcohol use occasional. FAMILY HISTORY: Essentially noncontributory. REVIEW OF SYSTEMS: The patient is overweight. He has leg edema. He has no leg or calf muscle pains. He has joint pains in his extremities. He has a cough with expectoration and mild hemoptysis. Denies headaches, blackouts spells. PHYSICAL EXAMINATION: GENERAL: This is an obese, middle-aged white male who is alert. His face is flushed. VITAL SIGNS: His blood pressure is 110/60, pulse 95, respirations 20, temperature 99. HEENT: Normocephalic. Pupils are reactive. Sclerae are clear. Throat is clear. Nasal mucosa is injected. NECK: Supple. No bruits, thyroid enlargement or lymphadenopathy. CHEST: Distant breath sounds with occasional crackles at the lung bases, more on the right side. HEART: Sounds are irregular. S1 and S2 with no murmur. No S3. ABDOMEN: Soft, protuberant with mild epigastric tenderness. Bowel sounds are active. EXTREMITIES: Reveal edema of 1+ to the left leg. Good peripheral pulses. There is no calf tenderness on either side. NEUROLOGIC: Reflexes are normal with no gross motor deficits. Cranial nerves are grossly intact. SKIN: No lesions noted. IMPRESSION: 1. Bilateral pneumonia, more on the right side. 2. History of deep venous thrombosis. 3. Probable underlying obstructive lung disease. 4. Neutropenia. 5. Possible obstructive sleep apnea. 6. Hypertension. PLAN: The patient will be maintained on O2 at 2 liters. We will get a CT scan of the chest and continue with nebulized bronchodilators q.i.d. p.r.n. and continue with antibiotic therapy including Zosyn 4.5 grams IV q.6 hours and Zithromax 500 mg daily. The patient will be sent for a CT scan of the chest. Continue with heparin subcutaneous 5000 units and a Doppler of the leg veins to check for any DVT. We will get a pulmonary function study when he is clinically stable. Sputum will be sent for Gram stain and culture. Serum titers are pending for pneumococcus, Legionella and mycoplasma. CBC to be repeated in the a.m. Consideration will be given for a bronchoscopy if the lung infiltration does not resolve quickly. I will follow the case with you, Dr. Soliman. Thanks for this consultation. Tova Saunders MD VFRANDY/bjorn , 07:41 PM , 07:55 PM
[2018-04-28] MEDS: Insulin NovoLOG Aspart Correctional Sugar Inj SQ SCH ×4 (01:28→18:00)
[2018-04-28] MEDS: Piperacil/Tazo 4.5 GM Premix 4.5 GM/100 ML BAG IV.SIG SCH ×4 (01:34→20:44)
[2018-04-28] MEDS ORDERED: Chlorhexidine Gluconate 2% 1 Pack (2 Cloths) TOPICAL PRN ×2 (04:00)
[2018-04-28] MEDS ORDERED: Chlorhexidine Gluconate 2% 1 Pack (2 Cloths) TOPICAL SCH (04:00)
[2018-04-28 04:53] LABS: Baso % (Auto) 0.2 % (0.0-2.0); Eos % (Auto) 0.4 % (0.0-4.0); Hematocrit 32.7 % (39.0-51.0); Hemoglobin 10.9 gm/dL (13.0-17.0); Lymph # (Auto) 0.5 th/mm3 (1.0-4.8); Lymph % (Auto) 7.1 % (9.0-44.0); Mean Corpuscular HGB Conc 33.2 % (32.0-36.0); Mean Corpuscular Hemoglobin 32.3 pg (27.0-34.0); Mean Corpuscular Volume 97.2 fL (80.0-100.0); Mono # (Auto) 0.5 th/mm3 (0.0-0.9); Mono % (Auto) 6.4 % (0.0-8.0); Neut # (Auto) 6.3 th/mm3 (1.8-7.7); Neut % (Auto) 85.9 % (16.0-70.0); Platelet Count 134 th/mm3 (150-450); Red Blood Count 3.36 mil/mm3 (4.50-5.90); Red Cell Distribution Width 13.4 % (11.6-17.2); White Blood Count 7.3 th/mm3 (4.0-11.0)
[2018-04-28 05:01] LABS: Chloride 106 meq/L (98-107); Potassium 3.9 meq/L (3.5-5.1); Sodium 140 meq/L (136-145)
[2018-04-28 05:05] LABS: Activated Partial Thrombo Time 32.7 sec (23.4-31.7); Calcium 7.7 mg/dL (8.5-10.1); INR 1.1 Ratio; Prothrombin Time 11.6 sec (9.8-11.6)
[2018-04-28 05:13] LABS: Alanine Aminotransferase 51 U/L (12-78); Albumin 2.7 g/dL (3.4-5.0); Alkaline Phosphatase 119 U/L (45-117); Anion Gap 7 meq/L (5-15); Aspartate Aminotransferase 36 U/L (15-37); Blood Urea Nitrogen 16 mg/dL (7-18); Carbon Dioxide 27.1 meq/L (21.0-32.0); Glomerular Filtration Rate 69 mL/min (>89); Glucose,Random 101 mg/dL (74-106); Phosphorus 2.6 mg/dL (2.5-4.9); Total Protein 5.8 g/dL (6.4-8.2)
[2018-04-28] MEDS: Chlorhexidine Gluconate 2% 1 Pack (2 Cloths) TOPICAL SCH (05:13)
[2018-04-28] MEDS: Heparin - SQ 10,000 UNITS/ML Vial SQ SCH ×3 (06:02→17:01)
[2018-04-28] MEDS: Gabapentin 400 MG Capsule PO SCH ×4 (06:02→17:01)
--- NOTE | 2018-04-28 06:18 | XR ---
EXAM DATE: 04/28/2018 6:14 AM EST AGE/SEX: 58 years / Male INDICATIONS: Pneumonia. Congestion. CLINICAL DATA: This is the patient's subsequent encounter. Patient reports that signs and symptoms h ave been present for 3 days and indicates a pain score of 4/10. MEDICAL/SURGICAL HISTORY: None. None. COMPARISON: [facility], CHEST 1V SINGLE AP, 04/27/2018. . FINDINGS: Single AP view of the chest. Bilateral pulmonary opacities again seen right greater than left with lo wer lung zone predominance. Slight decreased when compared to the prior study of 04/27/2018. No evide nce of pleural effusion or pneumothorax. Cardiomediastinal silhouette unchanged. CONCLUSION: Slight decrease in bilateral right greater than left pulmonary opacity. Electronically signed by: Rusty Blanc MD 04/28/2018 6:17 AM EST
--- NOTE | 2018-04-28 08:48 | CT ---
EXAM DATE: 04/28/2018 8:41 AM EST AGE/SEX: 58 years / Male INDICATIONS: Abnormal chest x-ray. CLINICAL DATA: This is the patient's initial encounter. Patient reports that signs and symptoms have been present for 2 days and indicates a pain score of 0/10. MEDICAL/SURGICAL HISTORY: Hypertension. Pulmonary embolism. Cholecystectomy. Gastric bypass. RADIATION DOSE: 15.42 CTDI (mGy) COMPARISON: [facility], CT PULMONARY ANGIOGRAM, 10/08/2017. . TECHNIQUE: Multiple contiguous axial images were obtained through the chest without contrast. Image s were obtained in suspended respiration using multiple row detector helical technique. Using automa kristie exposure control and adjustment of the mA and/or kV according to patient size, radiation dose was kept as low as reasonably achievable to obtain optimal diagnostic quality images. DICOM format imag e data is available electronically for review and comparison. FINDINGS: Lungs: Subsegmental patchy airspace disease is identified throughout both upper lobes. There is dens e consolidating airspace disease in both lower lobes with air bronchograms. There is no evidence of d iscrete mass. Mediastinum: There is good visualization of the great vessels of the middle mediastinum. No evidenc e of mediastinal or hilar adenopathy/mass. Pleurae: No evidence of focal thickening or pleural effusion. Axillae: Unremarkable. Bony Structures: Unremarkable. Miscellaneous: The examination was extended to include the upper abdomen, and both adrenal glands ar e normal in size and configuration. CONCLUSION: 1. Bilateral airspace disease characteristic of pneumonitis. 2. Bibasilar lower lobe dense consolidation. 3. No evidence of pleural effusions or suspicious mass densities. Electronically signed by: Fadi Francois MD 04/28/2018 8:46 AM EST
[2018-04-28] MEDS: Azithromycin Inj 500 MG in Sodium Chlor 0.9% Inj 250 ML IV.SIG SCH (08:51)
[2018-04-28] MEDS: FLUoxetine 20 MG Capsule PO SCH (08:51)
[2018-04-28] MEDS: Senna/Docusate Sodium 8.6/50 MG Tablet PO SCH ×2 (08:51→20:45)
[2018-04-28] MEDS ORDERED: Mirtazapine 15 MG Tablet PO SCH (09:00)
--- NOTE | 2018-04-28 13:55 | P.PNIM ---
Subjective Interval history: Follow up community acquired pneumonia and hypoxia. Patient seen and examined, sitting in bed comfortably in nad. On supplemental O2. States he feels much improved. Denies any chest pain or shortness of breath. Does state he ambulated without distress today. Afebrile. Eating well. VSS. Does state he has had some blood tinged sputum today. Physical Exam Vital signs: Vital Signs 04/27/18 14:00 04/27/18 15:00 04/27/18 15:08 Temperature Pulse Rate 66 66 67 Respiratory Rate 18 16 12 Blood Pressure Pulse Oximetry 97 04/27/18 15:24 04/27/18 16:00 04/27/18 16:05 Temperature 101.0 F H Pulse Rate 70 70 Respiratory Rate 21 20 16 Blood Pressure 144/81 H 132/78 Pulse Oximetry 98 97 04/27/18 17:00 04/27/18 18:00 04/27/18 19:00 Temperature Pulse Rate 86 84 74 Respiratory Rate 30 H 27 H 26 H Blood Pressure 132/88 118/70 109/64 Pulse Oximetry 94 L 95 96 04/27/18 19:09 04/27/18 20:00 04/27/18 21:00 Temperature 97.9 F Pulse Rate 75 78 78 Respiratory Rate 18 30 H 22 Blood Pressure 102/63 107/67 Pulse Oximetry 96 95 95 04/27/18 22:00 04/27/18 23:00 04/27/18 23:29 Temperature Pulse Rate 72 82 78 Respiratory Rate 23 26 H 18 Blood Pressure 112/68 109/75 Pulse Oximetry 97 96 04/28/18 00:15 04/28/18 01:00 04/28/18 02:00 Temperature 98.3 F Pulse Rate 92 H 86 84 Respiratory Rate 33 H 24 12 Blood Pressure 120/70 109/64 102/64 Pulse Oximetry 93 L 94 L 94 L 04/28/18 03:00 04/28/18 04:00 04/28/18 04:05 Temperature 98.3 F Pulse Rate 74 76 66 Respiratory Rate 22 20 16 Blood Pressure 105/65 117/70 Pulse Oximetry 94 L 95 04/28/18 05:00 04/28/18 06:00 04/28/18 07:30 Temperature Pulse Rate 70 74 67 Respiratory Rate 29 H 18 16 Blood Pressure 113/71 119/73 Pulse Oximetry 96 94 L 96 04/28/18 08:00 04/28/18 09:17 04/28/18 10:20 Temperature Pulse Rate 72 82 86 Respiratory Rate 29 H 29 H 26 H Blood Pressure 146/87 H 116/64 98/57 L Pulse Oximetry 96 97 Intake & Output 04/27/18 04/28/18 04/28/18 18:59 06:59 18:59 Intake Total 2730 / 2730 550 / 550 250 / 250 Output Total 850 / 850 1600 / 1600 450 / 450 Balance 1880 / 1880 -1050 / -1050 -200 / -200 Intake: IV 2350 / 2350 300 / 300 250 / 250 Azithromycin Inj 500 MG In NS 250 / 250 250 / 250 Inj 250 ML @ 250 mls/hr IV.SIG Q24H RENEA Rx#:[id number] Zosyn 4.5 GM Premix 4.5 gm In 300 / 300 0 / 0 100 ml @ 200 mls/hr IV.SIG Q6H RENEA Rx#:[id number] NS Inj 1,000 ML @ Wide Open IV. 1999 SIG BOLUS ONE Rx#:[id number] Rocephin Inj 1,000 MG In NS Inj 100 / 100 100 ML @ 200 mls/hr IV.SIG ONCE ONE Rx#:[id number] Oral 380 / 380 250 / 250 Output: Urine 850 / 850 1600 / 1600 450 / 450 Other: Date of Last Bowel Movement 04/27/18 04/27/18 Narrative: GENERAL: Well-developed, well-nourished patient lying in bed comfortably in nad. SKIN: Warm and dry. No rash. HEAD: Normocephalic. Atraumatic. EYES: Pupils equal and round. No scleral icterus. No injection or drainage. ENT: No nasal bleeding or discharge. Mucous membranes pink and moist. NECK: Supple. Trachea midline. CARDIOVASCULAR: Regular rate and rhythm. S1, S2 noted. No murmur appreciated. RESPIRATORY: No accessory muscle use. Rhonchi noted in bilateral lower lobes. Breath sounds equal bilaterally. GASTROINTESTINAL: Abdomen soft, non-tender, nondistended. Normoactive bowel sounds x4. MUSCULOSKELETAL: No obvious deformities. Extremities without clubbing, cyanosis , or edema. NEUROLOGICAL: Awake and alert. No obvious cranial nerve deficits. Motor grossly within normal limits. 5/5 muscle strength in bilateral upper and lower extremities. Normal speech. PSYCHIATRIC: Appropriate mood and affect; insight and judgment normal. Results - Labs CBC & Chem 7: 04/28/18 04:22 04/28/18 04:22 Laboratory Results - last 24 hr 04/27/18 04/27/18 04/27/18 14:35 14:35 17:30 CBC w Diff WBC RBC Hgb Hct MCV MCH MCHC RDW Plt Count MPV Neut % (Auto) Lymph % (Auto) [place] % (Auto) Eos % (Auto) Baso % (Auto) Neut # (Auto) Lymph # (Auto) [place] # (Auto) Eos # (Auto) Baso # (Auto) WBC Differential Differential Comment PT INR APTT Sodium Potassium Chloride Carbon Dioxide Anion Gap BUN Creatinine Estimated GFR POC Glucose Random Glucose Lactic Acid Calcium Phosphorus Magnesium Total Bilirubin AST ALT Alkaline Phosphatase Total Creatine Kinase 90 Total Protein Albumin Lipase 48 L Nasal Screen MRSA (PCR) Not detected Hepatitis A IgM Ab Nonreactive Hep Bs Antigen Nonreactive Hep B Core IgM Ab Nonreactive Hep C IgG Ab Nonreactive 04/27/18 04/27/18 04/28/18 18:35 23:25 04:22 CBC w Diff Auto diff final WBC 7.3 D RBC 3.36 L Hgb 10.9 L D Hct 32.7 L MCV 97.2 MCH 32.3 MCHC 33.2 RDW 13.4 Plt Count 134 L MPV 8.0 Neut % (Auto) 85.9 H Lymph % (Auto) 7.1 L [place] % (Auto) 6.4 Eos % (Auto) 0.4 Baso % (Auto) 0.2 Neut # (Auto) 6.3 Lymph # (Auto) 0.5 L [place] # (Auto) 0.5 Eos # (Auto) 0.0 Baso # (Auto) 0.0 WBC Differential . Differential Comment . PT INR APTT Sodium Potassium Chloride Carbon Dioxide Anion Gap BUN Creatinine Estimated GFR POC Glucose 263 H 88 Random Glucose Lactic Acid Calcium Phosphorus Magnesium Total Bilirubin AST ALT Alkaline Phosphatase Total Creatine Kinase Total Protein Albumin Lipase Nasal Screen MRSA (PCR) Hepatitis A IgM Ab Hep Bs Antigen Hep B Core IgM Ab Hep C IgG Ab 04/28/18 04/28/18 04/28/18 04:22 04:22 04:22 CBC w Diff WBC RBC Hgb Hct MCV MCH MCHC RDW Plt Count MPV Neut % (Auto) Lymph % (Auto) [place] % (Auto) Eos % (Auto) Baso % (Auto) Neut # (Auto) Lymph # (Auto) [place] # (Auto) Eos # (Auto) Baso # (Auto) WBC Differential Differential Comment PT 11.6 INR 1.1 APTT 32.7 H Sodium 140 Potassium 3.9 Chloride 106 Carbon Dioxide 27.1 Anion Gap 7 BUN 16 Creatinine 1.10 Estimated GFR 69 L POC Glucose Random Glucose 101 Lactic Acid 1.5 Calcium 7.7 L Phosphorus 2.6 Magnesium 2.0 Total Bilirubin 0.8 AST 36 ALT 51 Alkaline Phosphatase 119 H Total Creatine Kinase Total Protein 5.8 L D Albumin 2.7 L D Lipase Nasal Screen MRSA (PCR) Hepatitis A IgM Ab Hep Bs Antigen Hep B Core IgM Ab Hep C IgG Ab 04/28/18 04/28/18 04/28/18 06:08 07:48 11:58 CBC w Diff WBC RBC Hgb Hct MCV MCH MCHC RDW Plt Count MPV Neut % (Auto) Lymph % (Auto) [place] % (Auto) Eos % (Auto) Baso % (Auto) Neut # (Auto) Lymph # (Auto) [place] # (Auto) Eos # (Auto) Baso # (Auto) WBC Differential Differential Comment PT INR APTT Sodium Potassium Chloride Carbon Dioxide Anion Gap BUN Creatinine Estimated GFR POC Glucose 99 106 124 H Random Glucose Lactic Acid Calcium Phosphorus Magnesium Total Bilirubin AST ALT Alkaline Phosphatase Total Creatine Kinase Total Protein Albumin Lipase Nasal Screen MRSA (PCR) Hepatitis A IgM Ab Hep Bs Antigen Hep B Core IgM Ab Hep C IgG Ab Microbiology 04/27/18 07:20 Blood - Peripheral Aerobic Blood Culture - Preliminary No growth in 1 day 04/27/18 07:20 Blood - Peripheral Anaerobic Blood Culture - Preliminary No growth in 1 day 04/27/18 07:00 Blood - Peripheral Aerobic Blood Culture - Preliminary No growth in 1 day 04/27/18 07:00 Blood - Peripheral Anaerobic Blood Culture - Preliminary No growth in 1 day 04/27/18 17:50 Sputum - Expectorated Sputum Gram Stain - Final 04/27/18 17:30 Urine - Clean Catch Urine Streptococcus pneumoniae Antigen ( M - Final Presumptive negative for streptococcus pneumoniae antigen, suggesting no current or recent infection. Infection due to Streptococcus pneumoniae cannot be ruled out since the antigen present in the sample may be below the detection limit of the test. 04/27/18 17:30 Urine - Clean Catch Urine Legionella Antigen - Final Presumptive negative for Legionella pneumophila serogroup 1 antigen in urine, suggesting no recent or recurrent infection. Infection due to Legionella cannot be ruled out since other serogroups and species may cause disease, antigen may not be present in urine in early infection, and the level of antigen present in the urine may be below the detection limit of the test. 04/27/18 17:30 Nasal Wash Influenza Types A,B Antigen - Final Negative for FLU A and B antigen Infection due to influenza A or B cannot be ruled out since the antigen present in the sample may be below the detection limit of the test. - Imaging Impressions Liver Ultrasound 04/27/18 00:00 CONCLUSION: 1. Status post cholecystectomy. 2. Prominent liver with no focal abnormality. 3. Small cysts in the right kidney. Venous Doppler Study 04/27/18 00:00 CONCLUSION: 1. Negative examination with no evidence of deep venous thrombosis. Chest CT 04/28/18 00:14 CONCLUSION: 1. Bilateral airspace disease characteristic of pneumonitis. 2. Bibasilar lower lobe dense consolidation. 3. No evidence of pleural effusions or suspicious mass densities. Chest X-Ray 04/28/18 06:00 CONCLUSION: Slight decrease in bilateral right greater than left pulmonary opacity. Assessment and Plan - Assessment (1) Pneumonia Code(s): J18.9 - Pneumonia, unspecified organism Status: Acute (2) Hypoxemia Code(s): R09.02 - Hypoxemia Status: Acute (3) Acute kidney injury Code(s): N17.9 - Acute kidney failure, unspecified Status: Acute - Plan This is a 58-year-old male patient with: Acute respiratory insufficiency Community-acquired pneumonia -Chest x-ray admission revealed right lower lobe infiltrate. Chest CT showing bilateral airspace disease characteristic of pneumonitis. Bibasilar lower lobe dense consolidation. -Nasal cannula to maintain saturations greater or equal to 90%. -Incentive spirometry while awake. -Albuterol/ipratropium aerosols every 4 to be aggressive every 2 as needed dyspnea. -Pulmonology consultation requested, appreciate input and recommendations. -Chest x-ray this am showing slight improvement in right opacity. Continue to monitor for improvement. -Received ceftriaxone and azithromycin in the ED. -Will place on vancomycin, piperacillin/tazobactam and azithromycin. -Blood cultures negative to date. Follow. -Sputum, urine Legionella pneumococcal antigens and influenza negative. Chlamydia, mycoplasma pending. History of MOISÉS History of migraine headache Depressive disorder NOS Chronic oxycodone use -Patient is on fluoxetine 40 mg daily for depression. Continue. -Patient is on gabapentin 800 mg 4 times daily for peripheral neuropathy. Continue. -Holding mirtazapine with low white blood cell count. Reassess in a.m. -Holding rizatriptan for migraine headache. Resume clinic indicated. -Resume tizanidine 4 mg 3 times daily -Oxycodone/acetaminophen 5/25 1 tab every 4 hours as needed pain. Patient is on oxycodone/acetaminophen at home. Verified nonallergic History of essential hypertension -Hold hydrochlorothiazide 12.5 mg daily for hypertension. Resume clinically indicated -Status post 2 L normal saline ED. -Lactate is normal. -Check 2D echocardiogram. Pending. History of bowel obstruction status post multiple procedures Transaminitis, improving. -On regular diet. -Pantoprazole for GI prophylaxis. -Docusate sodium/senna 1 tablet twice daily for bowel regimen. -Liver ultrasound ordered and reviewed, no acute findings. -Avoid hepatotoxic medications. -CPK normal and hepatitis panel negative. Acute kidney injury with unknown baseline. Improved. -Creatinine improved. -Monitor urine output. -Accurate I's and O's. -Avoid nephrotoxic medication. Leukopenia. Improved. WBC 1.5 improved to 7 today. Follow trends. Follow-up CBC in a.m. Elevated BMI -Weight loss encouraged. -PT evaluate and treat. DVT Prophylaxis. SCDs. Heparin. Full code. (1) Pneumonia Qualifiers: Pneumonia type: due to unspecified organism Laterality: right Lung location : lower lobe of lung Qualified Code(s): J18.1 - Lobar pneumonia, unspecified organism
--- NOTE | 2018-04-28 18:38 | P.PN ---
Subjective Interval history: he is coughing up bloody sputum. Walked the halls and on O2 2L. No chest pains or fever. CT chest shows bilateral infiltrates. Physical Exam Vital signs: Vital Signs 04/27/18 19:00 04/27/18 19:09 04/27/18 20:00 Temperature 97.9 F Pulse Rate 74 75 78 Respiratory Rate 26 H 18 30 H Blood Pressure 109/64 102/63 Pulse Oximetry 96 96 95 04/27/18 21:00 04/27/18 22:00 04/27/18 23:00 Temperature Pulse Rate 78 72 82 Respiratory Rate 22 23 26 H Blood Pressure 107/67 112/68 109/75 Pulse Oximetry 95 97 96 04/27/18 23:29 04/28/18 00:15 04/28/18 01:00 Temperature 98.3 F Pulse Rate 78 92 H 86 Respiratory Rate 18 33 H 24 Blood Pressure 120/70 109/64 Pulse Oximetry 93 L 94 L 04/28/18 02:00 04/28/18 03:00 04/28/18 04:00 Temperature 98.3 F Pulse Rate 84 74 76 Respiratory Rate 12 22 20 Blood Pressure 102/64 105/65 117/70 Pulse Oximetry 94 L 94 L 95 04/28/18 04:05 04/28/18 05:00 04/28/18 06:00 Temperature Pulse Rate 66 70 74 Respiratory Rate 16 29 H 18 Blood Pressure 113/71 119/73 Pulse Oximetry 96 94 L 04/28/18 07:30 04/28/18 08:00 04/28/18 09:17 Temperature Pulse Rate 67 72 82 Respiratory Rate 16 29 H 29 H Blood Pressure 146/87 H 116/64 Pulse Oximetry 96 96 97 04/28/18 10:20 04/28/18 11:21 04/28/18 12:00 Temperature Pulse Rate 86 78 68 Respiratory Rate 26 H 25 H 24 Blood Pressure 98/57 L 104/58 L 118/72 Pulse Oximetry 97 98 04/28/18 13:22 04/28/18 14:00 04/28/18 14:45 Temperature Pulse Rate 86 78 69 Respiratory Rate 39 H 31 H 18 Blood Pressure 120/67 140/72 Pulse Oximetry 96 97 04/28/18 15:23 04/28/18 16:24 Temperature Pulse Rate 76 76 Respiratory Rate 35 H 23 Blood Pressure 108/58 L 125/71 Pulse Oximetry 94 L 96 Intake & Output 04/27/18 04/28/18 04/28/18 18:59 06:59 18:59 Intake Total 2730 / 2730 550 / 550 450 / 450 Output Total 850 / 850 1600 / 1600 450 / 450 Balance 1880 / 1880 -1050 / -1050 0 / 0 Intake: IV 2350 / 2350 300 / 300 450 / 450 Azithromycin Inj 500 MG In NS 250 / 250 250 / 250 Inj 250 ML @ 250 mls/hr IV.SIG Q24H RENEA Rx#:[id number] Zosyn 4.5 GM Premix 4.5 gm In 300 / 300 200 / 200 100 ml @ 200 mls/hr IV.SIG Q6H RENEA Rx#:[id number] NS Inj 1,000 ML @ Wide Open IV. 1999 / 1999 SIG BOLUS ONE Rx#:[id number] Rocephin Inj 1,000 MG In NS Inj 100 / 100 100 ML @ 200 mls/hr IV.SIG ONCE ONE Rx#:[id number] Oral 380 / 380 250 / 250 Output: Urine 850 / 850 1600 / 1600 450 / 450 Other: Date of Last Bowel Movement 04/27/18 04/27/18 Narrative: GENERAL: Well-developed, well-nourished patient lying in bed comfortably in NAD . SKIN: Warm and dry. No rash. HEAD: Normocephalic. Atraumatic. EYES: Pupils equal and round. No scleral icterus. No injection or drainage. ENT: No nasal bleeding or discharge. Mucous membranes pink and moist. NECK: Supple. Trachea midline. CARDIOVASCULAR: Regular rate and rhythm. S1, S2 noted. No murmur appreciated. RESPIRATORY: No accessory muscle use.Crackles in lower lobes. Breath sounds equal bilaterally. GASTROINTESTINAL: Abdomen soft, non-tender, nondistended. Normoactive bowel sounds x4. MUSCULOSKELETAL: No obvious deformities. Extremities without clubbing, cyanosis , but has 1 + edema. NEUROLOGICAL: Awake and alert. No obvious cranial nerve deficits. Motor grossly within normal limits. PSYCHIATRIC: Appropriate mood and affect; insight and judgment normal. Results - Labs CBC & Chem 7: 04/28/18 04:22 04/28/18 04:22 Laboratory Results - last 24 hr 04/27/18 04/27/18 04/27/18 17:30 18:35 23:25 CBC w Diff WBC RBC Hgb Hct MCV MCH MCHC RDW Plt Count MPV Neut % (Auto) Lymph % (Auto) [place] % (Auto) Eos % (Auto) Baso % (Auto) Neut # (Auto) Lymph # (Auto) [place] # (Auto) Eos # (Auto) Baso # (Auto) WBC Differential Differential Comment PT INR APTT Sodium Potassium Chloride Carbon Dioxide Anion Gap BUN Creatinine Estimated GFR POC Glucose 263 H 88 Random Glucose Lactic Acid Calcium Phosphorus Magnesium Total Bilirubin AST ALT Alkaline Phosphatase Total Protein Albumin Nasal Screen MRSA (PCR) Not detected 04/28/18 04/28/18 04/28/18 04:22 04:22 04:22 CBC w Diff Auto diff final WBC 7.3 D RBC 3.36 L Hgb 10.9 L D Hct 32.7 L MCV 97.2 MCH 32.3 MCHC 33.2 RDW 13.4 Plt Count 134 L MPV 8.0 Neut % (Auto) 85.9 H Lymph % (Auto) 7.1 L [place] % (Auto) 6.4 Eos % (Auto) 0.4 Baso % (Auto) 0.2 Neut # (Auto) 6.3 Lymph # (Auto) 0.5 L [place] # (Auto) 0.5 Eos # (Auto) 0.0 Baso # (Auto) 0.0 WBC Differential . Differential Comment . PT 11.6 INR 1.1 APTT 32.7 H Sodium 140 Potassium 3.9 Chloride 106 Carbon Dioxide 27.1 Anion Gap 7 BUN 16 Creatinine 1.10 Estimated GFR 69 L POC Glucose Random Glucose 101 Lactic Acid Calcium 7.7 L Phosphorus 2.6 Magnesium 2.0 Total Bilirubin 0.8 AST 36 ALT 51 Alkaline Phosphatase 119 H Total Protein 5.8 L D Albumin 2.7 L D Nasal Screen MRSA (PCR) 04/28/18 04/28/18 04/28/18 04:22 06:08 07:48 CBC w Diff WBC RBC Hgb Hct MCV MCH MCHC RDW Plt Count MPV Neut % (Auto) Lymph % (Auto) [place] % (Auto) Eos % (Auto) Baso % (Auto) Neut # (Auto) Lymph # (Auto) [place] # (Auto) Eos # (Auto) Baso # (Auto) WBC Differential Differential Comment PT INR APTT Sodium Potassium Chloride Carbon Dioxide Anion Gap BUN Creatinine Estimated GFR POC Glucose 99 106 Random Glucose Lactic Acid 1.5 Calcium Phosphorus Magnesium Total Bilirubin AST ALT Alkaline Phosphatase Total Protein Albumin Nasal Screen MRSA (PCR) 04/28/18 04/28/18 11:58 16:28 CBC w Diff WBC RBC Hgb Hct MCV MCH MCHC RDW Plt Count MPV Neut % (Auto) Lymph % (Auto) [place] % (Auto) Eos % (Auto) Baso % (Auto) Neut # (Auto) Lymph # (Auto) [place] # (Auto) Eos # (Auto) Baso # (Auto) WBC Differential Differential Comment PT INR APTT Sodium Potassium Chloride Carbon Dioxide Anion Gap BUN Creatinine Estimated GFR POC Glucose 124 H 176 H Random Glucose Lactic Acid Calcium Phosphorus Magnesium Total Bilirubin AST ALT Alkaline Phosphatase Total Protein Albumin Nasal Screen MRSA (PCR) Microbiology 04/27/18 17:50 Sputum - Expectorated Sputum Gram Stain - Final 04/27/18 17:50 Sputum - Expectorated Sputum Sputum Culture - Preliminary Heavy growth normal respiratory shari at 24 hours 04/27/18 07:20 Blood - Peripheral Aerobic Blood Culture - Preliminary No growth in 1 day 04/27/18 07:20 Blood - Peripheral Anaerobic Blood Culture - Preliminary No growth in 1 day 04/27/18 07:00 Blood - Peripheral Aerobic Blood Culture - Preliminary No growth in 1 day 04/27/18 07:00 Blood - Peripheral Anaerobic Blood Culture - Preliminary No growth in 1 day 04/27/18 17:30 Urine - Clean Catch Urine Streptococcus pneumoniae Antigen ( M - Final Presumptive negative for streptococcus pneumoniae antigen, suggesting no current or recent infection. Infection due to Streptococcus pneumoniae cannot be ruled out since the antigen present in the sample may be below the detection limit of the test. 04/27/18 17:30 Urine - Clean Catch Urine Legionella Antigen - Final Presumptive negative for Legionella pneumophila serogroup 1 antigen in urine, suggesting no recent or recurrent infection. Infection due to Legionella cannot be ruled out since other serogroups and species may cause disease, antigen may not be present in urine in early infection, and the level of antigen present in the urine may be below the detection limit of the test. 04/27/18 17:30 Nasal Wash Influenza Types A,B Antigen - Final Negative for FLU A and B antigen Infection due to influenza A or B cannot be ruled out since the antigen present in the sample may be below the detection limit of the test. - Imaging Impressions Chest CT 04/28/18 00:14 CONCLUSION: 1. Bilateral airspace disease characteristic of pneumonitis. 2. Bibasilar lower lobe dense consolidation. 3. No evidence of pleural effusions or suspicious mass densities. Chest X-Ray 04/28/18 06:00 CONCLUSION: Slight decrease in bilateral right greater than left pulmonary opacity. Assessment and Plan - Assessment (1) Hemoptysis Code(s): R04.2 - Hemoptysis Status: Acute (2) Pneumonia due to aerobic bacteria Code(s): J15.6 - Pneumonia due to other Gram-negative bacteria Status: Acute (3) Interstitial lung disease Code(s): J84.9 - Interstitial pulmonary disease, unspecified Status: Acute (4) Pneumonia Code(s): J18.9 - Pneumonia, unspecified organism Status: Acute (5) Hypoxemia Code(s): R09.02 - Hypoxemia Status: Acute (6) Fluid overload Code(s): E87.70 - Fluid overload, unspecified Status: Acute (7) Community acquired pneumonia Code(s): J18.9 - Pneumonia, unspecified organism Status: Acute (8) Leukopenia Code(s): D72.819 - Decreased white blood cell count, unspecified Status: Acute (9) Acute kidney injury Code(s): N17.9 - Acute kidney failure, unspecified Status: Acute (10) Elevated levels of transaminase & lactic acid dehydrogenase Code(s): R74.0 - Nonspecific elevation of levels of transaminase and lactic acid dehydrogenase [LDH] Status: Acute - Plan 1. Continue antibiotics , Zosyn/ Zithromax 2. O2 2 L N/C 3. duoneb nebs qid. 4. Add Mucinex 600 mg BID 5. Add solumedrol 40 mg IV Q8H for 2 days 6. Will get PFT with bronchodilators. 7. Will need Bronchoscopy when stable . Discussed procedure and risks incl bleeding/ Pneumothorax 8. get sputum for cytology (4) Pneumonia Qualifiers: Pneumonia type: due to unspecified organism Laterality: right Lung location : lower lobe of lung Qualified Code(s): J18.1 - Lobar pneumonia, unspecified organism (6) Fluid overload Qualifiers: Hypervolemia type: other Qualified Code(s): E87.79 - Other fluid overload (8) Leukopenia Qualifiers: Leukopenia type: unspecified Qualified Code(s): D72.819 - Decreased white blood cell count, unspecified
[2018-04-28] MEDS: guaiFENesin 600 MG ER Tablet PO SCH (20:45)
--- NOTE | 2018-04-28 21:04 | ECHRPT ---
Indication: Heart Failure CONCLUSIONS Normal left ventricular size. Wall thickness is measured at the upper limits of normal. The left ventricular systolic function is normal with an estimated ejection fraction in the range of 55-60%. Trace mitral valve regurgitation. Mitral annular calcification is present. There is trace tricuspid valve regurgitation. The estimated pulmonary arterial pressure is 38 mmHg. BP: 116 / 64 HR: 85 Rhythm: MEASUREMENTS (Male / Female) Normal Values Technical Quality:Fair 2D ECHO LV Diastolic Diameter PLAX 4.8 cm 4.2 - 5.9 / 3.9 - 5.3 cm LV Systolic Diameter PLAX 3.3 cm IVS Diastolic Thickness 1.1 cm 0.6 - 1.0 / 0.6 - 0.9 cm LVPW Diastolic Thickness 1.1 cm 0.6 - 1.0 / 0.6 - 0.9 cm LV Relative Wall Thickness 0.5 LVOT Diameter 2.1 cm Aortic Root Diameter 3.4 cm LA Systolic Diameter LX 3.5 cm 3.0 - 4.0 / 2.7 - 3.8 cm DOPPLER AV Peak Velocity 155.0 cm/s AV Peak Gradient 9.6 mmHg LVOT Peak Velocity 133.0 cm/s LVOT Peak Gradient 7.1 mmHg AV Area Cont Eq pk 3.0 cm Mitral E Point Velocity 70.1 cm/s Mitral A Point Velocity 74.5 cm/s Mitral E to A Ratio 0.9 LV E' Lateral Velocity 13.5 cm/s Mitral E to LV E' Lateral Ratio 5.2 LV E' Septal Velocity 13.3 cm/s Mitral E to LV E' Septal Ratio 5.3 TR Peak Velocity 266.0 cm/s TR Peak Gradient 28.3 mmHg Right Atrial Pressure 10.0 mmHg Pulmonary Artery Systolic Pressu 38.3 mmHg Right Ventricular Systolic Press 38.3 mmHg PV Peak Velocity 106.0 cm/s PV Peak Gradient 4.5 mmHg FINDINGS LEFT VENTRICLE Normal left ventricular size. Wall thickness is measured at the upper limits of normal. The left ventricular systolic function is normal with an estimated ejection fraction in the range of 55-60%. RIGHT VENTRICLE Normal right ventricular size and systolic function. LEFT ATRIUM The left atrial size is normal. RIGHT ATRIUM The right atrial size is normal. ATRIAL SEPTUM Normal atrial septal thickness without atrial level shunting by limited color doppler interrogation. AORTA The aortic root and proximal ascending aorta are normal in size on limited imaging. MITRAL VALVE Trace mitral valve regurgitation. Mitral annular calcification is present. AORTIC VALVE Trileaflet aortic valve. No aortic valve stenosis or regurgitation. TRICUSPID VALVE There is trace tricuspid valve regurgitation. The estimated pulmonary arterial pressure is 38 mmHg. PULMONARY VALVE No pulmonary valve regurgitation or stenosis. VESSELS The inferior vena cava is normal in size. PERICARDIUM No pericardial effusion. David Quach MD, FACC (Electronically Signed) Final Date:28 April 2018 21:03
[2018-04-29] MEDS: Insulin NovoLOG Aspart Correctional Sugar Inj SQ SCH ×4 (00:29→19:30)
[2018-04-29] MEDS: Gabapentin 400 MG Capsule PO SCH ×4 (00:32→18:01)
[2018-04-29] MEDS: Piperacil/Tazo 4.5 GM Premix 4.5 GM/100 ML BAG IV.SIG SCH ×6 (03:03→20:36)
[2018-04-29] MEDS: Chlorhexidine Gluconate 2% 1 Pack (2 Cloths) TOPICAL SCH (04:00)
[2018-04-29] MEDS: Heparin - SQ 10,000 UNITS/ML Vial SQ SCH ×2 (06:42→18:01)
[2018-04-29] MEDS: guaiFENesin 600 MG ER Tablet PO SCH ×3 (07:39→20:37)
[2018-04-29] MEDS: Azithromycin Inj 500 MG in Sodium Chlor 0.9% Inj 250 ML IV.SIG SCH ×2 (07:39→09:30)
[2018-04-29] MEDS: FLUoxetine 20 MG Capsule PO SCH ×2 (07:39→09:31)
[2018-04-29] MEDS: Senna/Docusate Sodium 8.6/50 MG Tablet PO SCH ×3 (07:39→20:37)
--- NOTE | 2018-04-29 08:14 | P.PN ---
Subjective Interval history: Follow-up bilateral pneumonia. Patient seen and examined, lying in bed on supplemental O2 2 L nasal cannula. Patient states he feels a bit worse today, states that he is tired and overall fatigued. Short of breath with ambulation. Pulmonary following, may need bronchoscopy. Continued blood-tinged sputum. Sent for cytology last evening. Vital signs stable. Afebrile. Eating well without any nausea or vomiting. Denies any chest pain. Physical Exam Vital signs: Vital Signs 04/28/18 09:17 04/28/18 10:20 04/28/18 11:21 Temperature Pulse Rate 82 86 78 Respiratory Rate 29 H 26 H 25 H Blood Pressure 116/64 98/57 L 104/58 L Pulse Oximetry 97 97 04/28/18 12:00 04/28/18 13:22 04/28/18 14:00 Temperature Pulse Rate 68 86 78 Respiratory Rate 24 39 H 31 H Blood Pressure 118/72 120/67 140/72 Pulse Oximetry 98 96 97 04/28/18 14:45 04/28/18 15:23 04/28/18 16:24 Temperature Pulse Rate 69 76 76 Respiratory Rate 18 35 H 23 Blood Pressure 108/58 L 125/71 Pulse Oximetry 94 L 96 04/28/18 17:24 04/28/18 18:00 04/28/18 18:52 Temperature Pulse Rate 76 80 85 Respiratory Rate 20 18 Blood Pressure 128/72 106/62 Pulse Oximetry 97 94 L 04/28/18 19:00 04/28/18 19:17 04/28/18 20:00 Temperature Pulse Rate 74 81 86 Respiratory Rate 20 20 16 Blood Pressure 112/62 127/86 Pulse Oximetry 94 L 96 93 L 04/28/18 21:00 04/28/18 21:26 04/28/18 22:00 Temperature Pulse Rate 74 72 70 Respiratory Rate 37 H 20 18 Blood Pressure 130/81 135/71 Pulse Oximetry 96 98 98 04/28/18 23:00 04/28/18 23:18 04/29/18 00:00 Temperature 98.4 F Pulse Rate 74 80 86 Respiratory Rate 20 20 20 Blood Pressure 126/71 119/70 Pulse Oximetry 94 L 94 L 04/29/18 01:00 04/29/18 01:28 04/29/18 02:00 Temperature Pulse Rate 94 H 86 84 Respiratory Rate 20 26 H 31 H Blood Pressure 121/70 135/71 Pulse Oximetry 94 L 93 L 91 L 04/29/18 03:00 04/29/18 03:37 04/29/18 04:00 Temperature Pulse Rate 72 71 72 Respiratory Rate 37 H 18 43 H Blood Pressure 127/65 Pulse Oximetry 94 L 93 L 04/29/18 05:30 04/29/18 06:31 04/29/18 07:25 Temperature Pulse Rate 70 64 73 Respiratory Rate 46 H 36 H 18 Blood Pressure 142/83 H 147/80 H Pulse Oximetry 95 98 95 Intake & Output 04/28/18 04/29/18 04/29/18 18:59 06:59 18:59 Intake Total 570 / 570 200 / 200 Output Total 600 / 600 350 / 350 Balance -30 / -30 -150 / -150 Intake: IV 450 / 450 200 / 200 Azithromycin Inj 500 MG In NS 250 / 250 Inj 250 ML @ 250 mls/hr IV.SIG Q24H RENEA Rx#:[id number] Zosyn 4.5 GM Premix 4.5 gm In 200 / 200 200 / 200 100 ml @ 200 mls/hr IV.SIG Q6H RENEA Rx#:[id number] Oral 120 / 120 0 / 0 Output: Urine 600 / 600 350 / 350 Other: Date of Last Bowel Movement 04/27/18 04/27/18 04/27/18 Narrative: GENERAL: Well-developed, well-nourished patient lying in bed comfortably in NAD . SKIN: Warm and dry. No rash. HEAD: Normocephalic. Atraumatic. EYES: Pupils equal and round. No scleral icterus. No injection or drainage. ENT: No nasal bleeding or discharge. Mucous membranes pink and moist. NECK: Supple. Trachea midline. CARDIOVASCULAR: Regular rate and rhythm. S1, S2 noted. No murmur appreciated. RESPIRATORY: No accessory muscle use.diminished breath sounds posterior lobes, rhonchi in upper lobes. Breath sounds equal bilaterally. GASTROINTESTINAL: Abdomen soft, non-tender, nondistended. Normoactive bowel sounds x4. MUSCULOSKELETAL: No obvious deformities. Extremities without clubbing, cyanosis , but has 1 + edema. NEUROLOGICAL: Awake and alert. No obvious cranial nerve deficits. Motor grossly within normal limits. PSYCHIATRIC: Appropriate mood and affect; insight and judgment normal. Results - Labs CBC & Chem 7: 04/29/18 07:20 04/28/18 04:22 Laboratory Results - last 24 hr 04/28/18 04/28/18 04/28/18 11:58 16:28 20:44 POC Glucose 124 H 176 H 177 H 04/29/18 04/29/18 00:23 06:41 POC Glucose 116 H 102 Microbiology 04/27/18 17:50 Sputum - Expectorated Sputum Gram Stain - Final 04/27/18 17:50 Sputum - Expectorated Sputum Sputum Culture - Preliminary Heavy growth normal respiratory shari at 24 hours 04/27/18 07:20 Blood - Peripheral Aerobic Blood Culture - Preliminary No growth in 1 day 04/27/18 07:20 Blood - Peripheral Anaerobic Blood Culture - Preliminary No growth in 1 day 04/27/18 07:00 Blood - Peripheral Aerobic Blood Culture - Preliminary No growth in 1 day 04/27/18 07:00 Blood - Peripheral Anaerobic Blood Culture - Preliminary No growth in 1 day 04/27/18 17:30 Urine - Clean Catch Urine Streptococcus pneumoniae Antigen ( M - Final Presumptive negative for streptococcus pneumoniae antigen, suggesting no current or recent infection. Infection due to Streptococcus pneumoniae cannot be ruled out since the antigen present in the sample may be below the detection limit of the test. 04/27/18 17:30 Urine - Clean Catch Urine Legionella Antigen - Final Presumptive negative for Legionella pneumophila serogroup 1 antigen in urine, suggesting no recent or recurrent infection. Infection due to Legionella cannot be ruled out since other serogroups and species may cause disease, antigen may not be present in urine in early infection, and the level of antigen present in the urine may be below the detection limit of the test. - Imaging Impressions Chest CT 04/28/18 00:14 CONCLUSION: 1. Bilateral airspace disease characteristic of pneumonitis. 2. Bibasilar lower lobe dense consolidation. 3. No evidence of pleural effusions or suspicious mass densities. Assessment and Plan - Assessment (1) Pneumonia Code(s): J18.9 - Pneumonia, unspecified organism Status: Acute (2) Hypoxemia Code(s): R09.02 - Hypoxemia Status: Acute (3) Acute kidney injury Code(s): N17.9 - Acute kidney failure, unspecified Status: Acute - Plan This is a 58-year-old male patient with: Acute respiratory insufficiency Community-acquired pneumonia -Chest x-ray admission revealed right lower lobe infiltrate. Chest CT showing bilateral airspace disease characteristic of pneumonitis. Bibasilar lower lobe dense consolidation. -Nasal cannula to maintain saturations greater or equal to 90%. -Incentive spirometry while awake. -Albuterol/ipratropium aerosols every 4 to be aggressive every 2 as needed dyspnea. -Pulmonology consultation requested, appreciate input and recommendations. -Chest x-ray showing slight improvement in right opacity. Continue to monitor for improvement. -Received ceftriaxone and azithromycin in the ED. -Will place on vancomycin, piperacillin/tazobactam and azithromycin. -Blood cultures negative to date. Follow. -Sputum, urine Legionella pneumococcal antigens and influenza negative. -Chlamydia, mycoplasma pending. -Added Mucinex. Plan Solu-Medrol 40 mg every 8 hours. -Pulmonary ordered PFTs. May possibly need bronchoscopy when stable. Sputum sent for cytology. -Supportive care. Monitor for improvement. History of MOISÉS History of migraine headache Depressive disorder NOS Chronic oxycodone use -Patient is on fluoxetine 40 mg daily for depression. Continue. -Patient is on gabapentin 800 mg 4 times daily for peripheral neuropathy. Continue. -Holding mirtazapine with low white blood cell count. Reassess in a.m. -Holding rizatriptan for migraine headache. Resume clinic indicated. -Resume tizanidine 4 mg 3 times daily -Oxycodone/acetaminophen 5/25 1 tab every 4 hours as needed pain. Patient is on oxycodone/acetaminophen at home. Verified nonallergic History of essential hypertension -Hold hydrochlorothiazide 12.5 mg daily for hypertension. Resume clinically indicated. Patient is actually hypotensive today. Will add 1 L NS bolus. Monitor blood pressure trends. -Status post 2 L normal saline ED. -Lactate is normal. -Echocardiogram showing EF 55-60%. Pulmonary artery pressure 38. Trace mitral valve and tricuspid valve regurg. History of bowel obstruction status post multiple procedures Transaminitis, improving. -On regular diet. -Pantoprazole for GI prophylaxis. -Docusate sodium/senna 1 tablet twice daily for bowel regimen. -Liver ultrasound ordered and reviewed, no acute findings. -Avoid hepatotoxic medications. -CPK normal and hepatitis panel negative. Acute kidney injury with unknown baseline. Improved. -Creatinine improved. -Monitor urine output. -Accurate I's and O's. -Avoid nephrotoxic medication. Leukopenia. Improved. WBC 1.5 improved to 7 today. Follow trends. Follow-up CBC in a.m. Elevated BMI -Weight loss encouraged. -PT evaluate and treat. DVT Prophylaxis. SCDs. Heparin. Full code. (1) Pneumonia Qualifiers: Pneumonia type: due to unspecified organism Laterality: right Lung location : lower lobe of lung Qualified Code(s): J18.1 - Lobar pneumonia, unspecified organism
[2018-04-29 08:28] LABS: Baso % (Auto) 0.1 % (0.0-2.0); Eos % (Auto) 0.3 % (0.0-4.0); Hematocrit 31.3 % (39.0-51.0); Hemoglobin 10.6 gm/dL (13.0-17.0); Lymph # (Auto) 0.6 th/mm3 (1.0-4.8); Lymph % (Auto) 8.3 % (9.0-44.0); Mean Corpuscular HGB Conc 34.1 % (32.0-36.0); Mean Corpuscular Hemoglobin 33.5 pg (27.0-34.0); Mean Corpuscular Volume 98.5 fL (80.0-100.0); Mean Platelet Volume 8.4 fL (7.0-11.0); Mono # (Auto) 0.4 th/mm3 (0.0-0.9); Mono % (Auto) 5.7 % (0.0-8.0); Neut # (Auto) 5.8 th/mm3 (1.8-7.7); Neut % (Auto) 85.6 % (16.0-70.0); Platelet Count 146 th/mm3 (150-450); Red Blood Count 3.18 mil/mm3 (4.50-5.90); Red Cell Distribution Width 13.6 % (11.6-17.2); White Blood Count 6.8 th/mm3 (4.0-11.0)
[2018-04-29] MEDS ORDERED: Influenza (Quadrivalent) Vaccine 0.5 ML Syringe IM ONE (09:00)
[2018-04-29] MEDS ORDERED: Sod Chloride 0.9% Inj 1,000 ML IV.SIG SCH (09:45)
[2018-04-29] MEDS: Sod Chloride 0.9% Inj 1,000 ML IV.CONT SCH ×2 (10:53→20:37)
[2018-04-29] MEDS ORDERED: RESP: Albuterol Concentrated 2.5 MG/0.5 ML Neb NEB SCH (19:15)
--- NOTE | 2018-04-29 19:18 | P.PN ---
Subjective Interval history: He is still coughing up bloody sputum. No fever. Chest x ray is better. No chest pains or fever. States he had HIV tests done in past and were Negative. Will get Immunoglobulin levels Physical Exam Vital signs: Vital Signs 04/28/18 19:17 04/28/18 20:00 04/28/18 21:00 Temperature Pulse Rate 81 86 74 Respiratory Rate 20 16 37 H Blood Pressure 127/86 Pulse Oximetry 96 93 L 96 04/28/18 21:26 04/28/18 22:00 04/28/18 23:00 Temperature Pulse Rate 72 70 74 Respiratory Rate 20 18 20 Blood Pressure 130/81 135/71 126/71 Pulse Oximetry 98 98 94 L 04/28/18 23:18 04/29/18 00:00 04/29/18 01:00 Temperature 98.4 F Pulse Rate 80 86 94 H Respiratory Rate 20 20 20 Blood Pressure 119/70 Pulse Oximetry 94 L 94 L 04/29/18 01:28 04/29/18 02:00 04/29/18 03:00 Temperature Pulse Rate 86 84 72 Respiratory Rate 26 H 31 H 37 H Blood Pressure 121/70 135/71 Pulse Oximetry 93 L 91 L 94 L 04/29/18 03:37 04/29/18 04:00 04/29/18 05:30 Temperature Pulse Rate 71 72 70 Respiratory Rate 18 43 H 46 H Blood Pressure 127/65 142/83 H Pulse Oximetry 93 L 95 04/29/18 06:31 04/29/18 07:25 04/29/18 07:31 Temperature Pulse Rate 64 73 66 Respiratory Rate 36 H 18 42 H Blood Pressure 147/80 H 133/75 Pulse Oximetry 98 95 93 L 04/29/18 07:50 04/29/18 08:00 04/29/18 08:32 Temperature 98.7 F Pulse Rate 80 80 74 Respiratory Rate 32 H 25 H 30 H Blood Pressure 132/73 97/59 L Pulse Oximetry 94 L 94 L 95 04/29/18 09:32 04/29/18 09:34 04/29/18 10:00 Temperature Pulse Rate 72 74 54 L Respiratory Rate 34 H 23 Blood Pressure 92/49 L 89/50 L Pulse Oximetry 96 94 L 04/29/18 10:52 04/29/18 10:57 04/29/18 11:04 Temperature Pulse Rate 72 58 L 72 Respiratory Rate 29 H 17 32 H Blood Pressure 106/66 108/70 92/61 L Pulse Oximetry 95 96 94 L 04/29/18 11:07 04/29/18 11:33 04/29/18 11:44 Temperature Pulse Rate 54 L 53 L Respiratory Rate 28 H 18 Blood Pressure 101/57 L 100/64 Pulse Oximetry 99 97 04/29/18 12:00 04/29/18 12:24 04/29/18 12:25 Temperature 98.2 F Pulse Rate 68 66 68 Respiratory Rate 19 27 H 31 H Blood Pressure 92/54 L 87/56 L 92/54 L Pulse Oximetry 68 L 97 97 04/29/18 12:34 04/29/18 12:35 04/29/18 13:34 Temperature Pulse Rate 76 72 64 Respiratory Rate 33 H 28 H 35 H Blood Pressure 84/53 L 92/50 L 118/65 Pulse Oximetry 96 96 98 04/29/18 14:35 04/29/18 15:35 04/29/18 16:00 Temperature 98.6 F Pulse Rate 70 58 L 56 L Respiratory Rate 29 H 26 H 30 H Blood Pressure 106/56 L 125/78 140/86 Pulse Oximetry 96 98 98 04/29/18 16:18 04/29/18 16:23 Temperature Pulse Rate 66 62 Respiratory Rate 28 H 14 Blood Pressure Pulse Oximetry 98 Intake & Output 04/29/18 04/29/18 04/30/18 06:59 18:59 06:59 Intake Total 200 / 200 1450 / 1450 Output Total 350 / 350 550 / 550 Balance -150 / -150 900 / 900 Intake: IV 200 / 200 1450 / 1450 Azithromycin Inj 500 MG In NS 250 / 250 Inj 250 ML @ 250 mls/hr IV.SIG Q24H RENEA Rx#:[id number] Zosyn 4.5 GM Premix 4.5 gm In 200 / 200 200 / 200 100 ml @ 200 mls/hr IV.SIG Q6H RENEA Rx#:[id number] NS Inj 1,000 ML @ 1000 mls/hr 1000 / 1000 IV.SIG BOLUS RENEA Rx#:[id number] Oral 0 / 0 Output: Urine 350 / 350 550 / 550 Other: Date of Last Bowel Movement 04/27/18 04/27/18 Narrative: GENERAL: Well-developed, well-nourished patient lying in bed comfortably in NAD . SKIN: Warm and dry. No rash. HEAD: Normocephalic. Atraumatic. EYES: Pupils equal and round. No scleral icterus. No injection or drainage. ENT: No nasal bleeding or discharge. Mucous membranes pink and moist. NECK: Supple. Trachea midline. CARDIOVASCULAR: Regular rate and rhythm. S1, S2 noted. No murmur appreciated. RESPIRATORY: No accessory muscle use.Fine basal crackles. and wheezes in upper lobes. Breath sounds equal bilaterally. GASTROINTESTINAL: Abdomen soft, non-tender, nondistended. Normoactive bowel sounds x4. MUSCULOSKELETAL: No obvious deformities. Extremities without clubbing, cyanosis , but has 1 + edema. NEUROLOGICAL: Awake and alert. No obvious cranial nerve deficits. Motor grossly within normal limits. PSYCHIATRIC: Appropriate mood and affect; insight and judgment normal. Results - Labs CBC & Chem 7: 04/29/18 07:20 04/28/18 04:22 Laboratory Results - last 24 hr 04/27/18 04/28/18 04/29/18 14:35 20:44 00:23 CBC w Diff WBC RBC Hgb Hct MCV MCH MCHC RDW Plt Count MPV Neut % (Auto) Lymph % (Auto) [place] % (Auto) Eos % (Auto) Baso % (Auto) Neut # (Auto) Lymph # (Auto) [place] # (Auto) Eos # (Auto) Baso # (Auto) WBC Differential Differential Comment POC Glucose 177 H 116 H M. pneumoniae Interp . Mycoplasma pneumon IgG Positive Mycoplasma pneumon IgM Negative 04/29/18 04/29/18 04/29/18 06:41 07:20 12:33 CBC w Diff Auto diff final WBC 6.8 RBC 3.18 L Hgb 10.6 L Hct 31.3 L MCV 98.5 MCH 33.5 MCHC 34.1 RDW 13.6 Plt Count 146 L MPV 8.4 Neut % (Auto) 85.6 H Lymph % (Auto) 8.3 L [place] % (Auto) 5.7 Eos % (Auto) 0.3 Baso % (Auto) 0.1 Neut # (Auto) 5.8 Lymph # (Auto) 0.6 L [place] # (Auto) 0.4 Eos # (Auto) 0.0 Baso # (Auto) 0.0 WBC Differential . Differential Comment . POC Glucose 102 127 H M. pneumoniae Interp Mycoplasma pneumon IgG Mycoplasma pneumon IgM 04/29/18 16:18 CBC w Diff WBC RBC Hgb Hct MCV MCH MCHC RDW Plt Count MPV Neut % (Auto) Lymph % (Auto) [place] % (Auto) Eos % (Auto) Baso % (Auto) Neut # (Auto) Lymph # (Auto) [place] # (Auto) Eos # (Auto) Baso # (Auto) WBC Differential Differential Comment POC Glucose 74 M. pneumoniae Interp Mycoplasma pneumon IgG Mycoplasma pneumon IgM Microbiology 04/27/18 07:20 Blood - Peripheral Aerobic Blood Culture - Preliminary No growth in 2 days 04/27/18 07:20 Blood - Peripheral Anaerobic Blood Culture - Preliminary No growth in 2 days 04/27/18 07:00 Blood - Peripheral Aerobic Blood Culture - Preliminary No growth in 2 days 04/27/18 07:00 Blood - Peripheral Anaerobic Blood Culture - Preliminary No growth in 2 days 04/27/18 17:50 Sputum - Expectorated Sputum Gram Stain - Final 04/27/18 17:50 Sputum - Expectorated Sputum Sputum Culture - Final Heavy growth normal respiratory shari Assessment and Plan - Assessment (1) Hemoptysis Code(s): R04.2 - Hemoptysis Status: Acute (2) Pneumonia due to aerobic bacteria Code(s): J15.6 - Pneumonia due to other Gram-negative bacteria Status: Acute (3) Interstitial lung disease Code(s): J84.9 - Interstitial pulmonary disease, unspecified Status: Acute (4) Pneumonia Code(s): J18.9 - Pneumonia, unspecified organism Status: Acute (5) Hypoxemia Code(s): R09.02 - Hypoxemia Status: Acute (6) Fluid overload Code(s): E87.70 - Fluid overload, unspecified Status: Acute (7) Community acquired pneumonia Code(s): J18.9 - Pneumonia, unspecified organism Status: Acute (8) Leukopenia Code(s): D72.819 - Decreased white blood cell count, unspecified Status: Acute (9) Acute kidney injury Code(s): N17.9 - Acute kidney failure, unspecified Status: Acute (10) Elevated levels of transaminase & lactic acid dehydrogenase Code(s): R74.0 - Nonspecific elevation of levels of transaminase and lactic acid dehydrogenase [LDH] Status: Acute - Plan 1. Continue antibiotics , Zosyn/ Zithromax 2. O2 2 L N/C 3. duoneb nebs qid. 4. Mucinex 600 mg BID 5. Cont solumedrol 40 mg IV Q8H 6. Will get PFT with bronchodilators. 7. Will schedule Bronchoscopy in am. Discussed procedure and risks incl bleeding/ Pneumothorax 8. CBC,Coag profile in am 9. Hold heparin (4) Pneumonia Qualifiers: Pneumonia type: due to unspecified organism Laterality: right Lung location : lower lobe of lung Qualified Code(s): J18.1 - Lobar pneumonia, unspecified organism (6) Fluid overload Qualifiers: Hypervolemia type: other Qualified Code(s): E87.79 - Other fluid overload (8) Leukopenia Qualifiers: Leukopenia type: unspecified Qualified Code(s): D72.819 - Decreased white blood cell count, unspecified
[2018-04-29 20:39] LABS: Activated Partial Thrombo Time 34.8 sec (23.4-31.7)
[2018-04-29] MEDS: Dextrose 5%/NaCl 0.45% Inj 1,000 ML IV.CONT SCH (21:08)
[2018-04-30] MEDS: Gabapentin 400 MG Capsule PO SCH ×5 (00:04→23:37)
[2018-04-30] MEDS: Insulin NovoLOG Aspart Correctional Sugar Inj SQ SCH ×4 (00:05→19:28)
[2018-04-30 01:05] LABS: Immunoglobulin A 225 mg/dL (93-514); Immunoglobulin G 572 mg/dL (660-1640)
[2018-04-30] MEDS: Piperacil/Tazo 4.5 GM Premix 4.5 GM/100 ML BAG IV.SIG SCH ×4 (02:49→19:52)
[2018-04-30] MEDS: Chlorhexidine Gluconate 2% 1 Pack (2 Cloths) TOPICAL SCH (04:05)
[2018-04-30] MEDS: FLUoxetine 20 MG Capsule PO SCH (08:43)
[2018-04-30] MEDS: guaiFENesin 600 MG ER Tablet PO SCH ×2 (08:43→20:27)
[2018-04-30] MEDS: Senna/Docusate Sodium 8.6/50 MG Tablet PO SCH ×2 (08:44→20:28)
--- NOTE | 2018-04-30 08:46 | P.PNIM ---
Subjective Interval history: Follow-up bilateral pneumonia. Patient seen and examined, lying in bed on 2 L nasal cannula. No improvement, states he did not sleep very well. Still coughing up blood-tinged sputum. Plan for bronchoscopy at noon today with pulmonology. Afebrile overnight. Vital signs stable. Patient does state he feels more weak and fatigued. Encouraged use of I-S and ambulation. Physical Exam Vital signs: Vital Signs 04/29/18 09:32 04/29/18 09:34 04/29/18 10:00 Temperature Pulse Rate 72 74 54 L Respiratory Rate 34 H 23 Blood Pressure 92/49 L 89/50 L Pulse Oximetry 96 94 L 04/29/18 10:52 04/29/18 10:57 04/29/18 11:04 Temperature Pulse Rate 72 58 L 72 Respiratory Rate 29 H 17 32 H Blood Pressure 106/66 108/70 92/61 L Pulse Oximetry 95 96 94 L 04/29/18 11:07 04/29/18 11:33 04/29/18 11:44 Temperature Pulse Rate 54 L 53 L Respiratory Rate 28 H 18 Blood Pressure 101/57 L 100/64 Pulse Oximetry 99 97 04/29/18 12:00 04/29/18 12:24 04/29/18 12:25 Temperature 98.2 F Pulse Rate 68 66 68 Respiratory Rate 19 27 H 31 H Blood Pressure 92/54 L 87/56 L 92/54 L Pulse Oximetry 68 L 97 97 04/29/18 12:34 04/29/18 12:35 04/29/18 13:34 Temperature Pulse Rate 76 72 64 Respiratory Rate 33 H 28 H 35 H Blood Pressure 84/53 L 92/50 L 118/65 Pulse Oximetry 96 96 98 04/29/18 14:35 04/29/18 15:35 04/29/18 16:00 Temperature 98.6 F Pulse Rate 70 58 L 56 L Respiratory Rate 29 H 26 H 30 H Blood Pressure 106/56 L 125/78 140/86 Pulse Oximetry 96 98 98 04/29/18 16:18 04/29/18 16:23 04/29/18 16:36 Temperature Pulse Rate 66 62 68 Respiratory Rate 28 H 14 40 H Blood Pressure 128/81 Pulse Oximetry 98 98 04/29/18 17:00 04/29/18 18:00 04/29/18 18:37 Temperature Pulse Rate 84 60 72 Respiratory Rate 30 H 30 H Blood Pressure 119/78 131/80 Pulse Oximetry 94 L 97 04/29/18 19:00 04/29/18 19:37 04/29/18 20:00 Temperature 98.9 F Pulse Rate 70 70 74 Respiratory Rate 31 H 18 20 Blood Pressure 115/72 124/73 Pulse Oximetry 97 94 L 95 04/29/18 20:30 04/29/18 21:00 04/29/18 22:00 Temperature Pulse Rate 66 80 70 Respiratory Rate 17 20 18 Blood Pressure 107/70 128/74 Pulse Oximetry 95 95 04/29/18 23:00 04/29/18 23:29 04/30/18 00:00 Temperature 100.7 F H Pulse Rate 64 89 86 Respiratory Rate 20 16 18 Blood Pressure 142/85 H 134/73 Pulse Oximetry 98 95 04/30/18 01:00 04/30/18 02:00 04/30/18 02:41 Temperature 98.8 F Pulse Rate 70 66 68 Respiratory Rate 20 24 42 H Blood Pressure 137/78 134/73 128/79 Pulse Oximetry 93 L 96 95 04/30/18 03:00 04/30/18 03:26 04/30/18 04:00 Temperature 98.1 F Pulse Rate 66 67 66 Respiratory Rate 34 H 15 37 H Blood Pressure 129/73 126/76 Pulse Oximetry 95 94 L 04/30/18 05:00 04/30/18 06:00 04/30/18 07:35 Temperature Pulse Rate 70 70 Respiratory Rate 39 H 20 Blood Pressure 126/76 140/82 Pulse Oximetry 96 95 Intake & Output 04/29/18 04/30/18 04/30/18 18:59 06:59 18:59 Intake Total 1450 / 1450 1400 / 1400 Output Total 550 / 550 1650 / 1650 Balance 900 / 900 -250 / -250 Intake: IV 1450 / 1450 1200 / 1200 NS Inj 1,000 ML @ 100 mls/hr IV 1000 / 1000 .CONT .Q10H RENEA Rx#:[id number] Azithromycin Inj 500 MG In NS 250 / 250 Inj 250 ML @ 250 mls/hr IV.SIG Q24H RENEA Rx#:[id number] Zosyn 4.5 GM Premix 4.5 gm In 200 / 200 200 / 200 100 ml @ 200 mls/hr IV.SIG Q6H RENEA Rx#:[id number] NS Inj 1,000 ML @ 1000 mls/hr 1000 / 1000 IV.SIG BOLUS RENEA Rx#:[id number] Oral 200 / 200 Output: Urine 550 / 550 1650 / 1650 Other: Date of Last Bowel Movement 04/27/18 04/27/18 # Bowel Movements 3 Narrative: GENERAL: Well-developed, well-nourished patient lying in bed comfortably in NAD . SKIN: Warm and dry. No rash. HEAD: Normocephalic. Atraumatic. EYES: Pupils equal and round. No scleral icterus. No injection or drainage. ENT: No nasal bleeding or discharge. Mucous membranes pink and moist. NECK: Supple. Trachea midline. CARDIOVASCULAR: Regular rate and rhythm. S1, S2 noted. No murmur appreciated. RESPIRATORY: No accessory muscle use. Diminished breath sounds in posterior lobes. Breath sounds equal bilaterally. GASTROINTESTINAL: Abdomen soft, non-tender, nondistended. Normoactive bowel sounds x4. MUSCULOSKELETAL: No obvious deformities. Extremities without clubbing, cyanosis. No edema. NEUROLOGICAL: Awake and alert. No obvious cranial nerve deficits. Motor grossly within normal limits. PSYCHIATRIC: Appropriate mood and affect; insight and judgment normal. Results - Labs CBC & Chem 7: 04/29/18 07:20 04/28/18 04:22 Laboratory Results - last 24 hr 04/27/18 04/29/18 04/29/18 14:35 12:33 16:18 PT INR APTT POC Glucose 127 H 74 IgG IgA M. pneumoniae Interp . Mycoplasma pneumon IgG Positive Mycoplasma pneumon IgM Negative 04/29/18 04/29/18 04/30/18 19:50 19:50 00:01 PT 10.0 INR 1.0 APTT 34.8 H POC Glucose 99 IgG 572 L IgA 225 M. pneumoniae Interp Mycoplasma pneumon IgG Mycoplasma pneumon IgM 04/30/18 05:55 PT INR APTT POC Glucose 99 IgG IgA M. pneumoniae Interp Mycoplasma pneumon IgG Mycoplasma pneumon IgM Microbiology 04/27/18 07:20 Blood - Peripheral Aerobic Blood Culture - Preliminary No growth in 2 days 04/27/18 07:20 Blood - Peripheral Anaerobic Blood Culture - Preliminary No growth in 2 days 04/27/18 07:00 Blood - Peripheral Aerobic Blood Culture - Preliminary No growth in 2 days 04/27/18 07:00 Blood - Peripheral Anaerobic Blood Culture - Preliminary No growth in 2 days 04/27/18 17:50 Sputum - Expectorated Sputum Gram Stain - Final 04/27/18 17:50 Sputum - Expectorated Sputum Sputum Culture - Final Heavy growth normal respiratory shari Assessment and Plan - Assessment (1) Pneumonia Code(s): J18.9 - Pneumonia, unspecified organism Status: Acute (2) Hypoxemia Code(s): R09.02 - Hypoxemia Status: Acute (3) Acute kidney injury Code(s): N17.9 - Acute kidney failure, unspecified Status: Acute - Plan This is a 58-year-old male patient with: Acute respiratory insufficiency Community-acquired pneumonia -Chest x-ray admission revealed right lower lobe infiltrate. Chest CT showing bilateral airspace disease characteristic of pneumonitis. Bibasilar lower lobe dense consolidation. -Nasal cannula to maintain saturations greater or equal to 90%. -Incentive spirometry while awake. -Albuterol/ipratropium aerosols every 4 to be aggressive every 2 as needed dyspnea. -Pulmonology consultation requested, appreciate input and recommendations. -Chest x-ray showing slight improvement in right opacity. Continue to monitor for improvement. -Received ceftriaxone and azithromycin in the ED. -Will place on vancomycin, piperacillin/tazobactam and azithromycin. -Blood cultures negative to date. Follow. -Sputum, urine Legionella pneumococcal antigens and influenza negative. -Chlamydia, mycoplasma pending. -Added Mucinex. Plan Solu-Medrol 40 mg every 8 hours. -Pulmonary ordered PFTs. Bronchoscopy today. Sputum sent for cytology. -Supportive care. Monitor for improvement. History of MOISÉS History of migraine headache Depressive disorder NOS Chronic oxycodone use -Patient is on fluoxetine 40 mg daily for depression. Continue. -Patient is on gabapentin 800 mg 4 times daily for peripheral neuropathy. Continue. -Holding mirtazapine with low white blood cell count. Reassess in a.m. -Holding rizatriptan for migraine headache. Resume clinic indicated. -Resume tizanidine 4 mg 3 times daily -Oxycodone/acetaminophen 5/25 1 tab every 4 hours as needed pain. Patient is on oxycodone/acetaminophen at home. Verified nonallergic History of essential hypertension -Hold hydrochlorothiazide 12.5 mg daily for hypertension. Resume clinically indicated. Patient is actually hypotensive today. Monitor blood pressure trends. -Status post 2 L normal saline ED. Added 1LNS yesterday. BP stable. -Lactate is normal. -Echocardiogram showing EF 55-60%. Pulmonary artery pressure 38. Trace mitral valve and tricuspid valve regurg. History of bowel obstruction status post multiple procedures Transaminitis, improving. -On regular diet. -Pantoprazole for GI prophylaxis. -Docusate sodium/senna 1 tablet twice daily for bowel regimen. -Liver ultrasound ordered and reviewed, no acute findings. -Avoid hepatotoxic medications. -CPK normal and hepatitis panel negative. Acute kidney injury with unknown baseline. Improved. -Creatinine improved. -Monitor urine output. -Accurate I's and O's. -Avoid nephrotoxic medication. Leukopenia. Improved. WBC 1.5 improved to 7 today. Follow trends. Follow-up CBC in a.m. Elevated BMI -Weight loss encouraged. -PT evaluate and treat. DVT Prophylaxis. SCDs. Heparin. Full code. Discharge Planning: Bronchoscopy today. Await clinical improvement. (1) Pneumonia Qualifiers: Pneumonia type: due to unspecified organism Laterality: right Lung location : lower lobe of lung Qualified Code(s): J18.1 - Lobar pneumonia, unspecified organism
[2018-04-30] MEDS ORDERED: Lidocaine 2% Jelly 5 ML Syringe ONE (11:51)
[2018-04-30] MEDS ORDERED: Lidocaine 2% Inj 50 ML Vial ONE (11:52)
[2018-04-30] MEDS ORDERED: EPINEPHrine PF/SF Inj 1 MG/ML Ampul I-OCULAR ONE (11:52)
[2018-04-30] MEDS ORDERED: Chlorhexidine Gluconate 2% 1 Pack (2 Cloths) TOPICAL ONE (11:55)
[2018-04-30] MEDS ORDERED: Metoprolol Tartrate 25 MG Tablet PO ONE (11:55)
[2018-04-30] MEDS ORDERED: Sodium Chlor 0.9% Inj 500 ML IV.SIG SCH (12:00)
[2018-04-30] MEDS ORDERED: Famotidine PF Inj 20 MG/2 ML Vial ONE (12:00)
[2018-04-30] MEDS ORDERED: fentaNYL Citrate Inj 100 MCG/2 ML Ampul ONE (12:04)
[2018-04-30] MEDS ORDERED: Succinylcholine Inj 100 MG/5 ML Syringe IV.PUSH ONE (12:23)
[2018-04-30] MEDS: Sod Chloride 0.9% Inj 1,000 ML IV.CONT SCH ×2 (12:25→16:50)
[2018-04-30] MEDS: Azithromycin Inj 500 MG in Sodium Chlor 0.9% Inj 250 ML IV.SIG SCH (12:26)
--- NOTE | 2018-04-30 13:16 | MP ---
cc: Tova Saunders MD DATE OF OPERATION: 04/30/2018 PROCEDURE PERFORMED: Fiberoptic bronchoscopy with biopsy, brushings and washings. PREOPERATIVE DIAGNOSIS: Bilateral lung infiltrates with hemoptysis. POSTOPERATIVE DIAGNOSIS: Bilateral lung infiltrates with hemoptysis. ANESTHESIA: General. SURGEON: Tova Saunders MD PROCEDURE AND FINDINGS: The patient was intubated under general anesthesia, following which, the Olympus IP 180 bronchoscope was used to visualize the bronchi. The scope was advanced via the endotracheal tube into the trachea. Trachea and marcos appeared normal. Scope was then advanced into the right mainstem and right upper lobe segmental bronchi. Right upper lobe bronchi demonstrated moderate endobronchitis with mucosal edema and there was some old blood noted in the bronchial lumen of the anterior segmental bronchus. This was suctioned out. Saline washings were done. No mass was seen in the underlying bronchi. Washings were done from here as well as biopsies. The scope was then advanced through the right middle lobe segmental bronchi. These bronchi demonstrated mild endobronchitis with mucoid secretions and a few bloody secretions which were suctioned out but no endobronchial mass was seen. Next, the right lower lobe segmental bronchi were visualized. These bronchi demonstrated moderate endobronchitis with mucosal ridging, edema and a few bloody secretions and these were suctioned out. Brushings were done for cytology and micro. Saline washings and lavage were done. No endobronchial mass was seen here. The scope was then advanced into the left mainstem and left upper lobe segmental bronchi. These bronchi demonstrated mild endobronchitis with mucoid secretions and there were no endobronchial masses seen here. Saline washings were done. Next, the left lower lobe segmental bronchi were visualized. These bronchi demonstrated mucosal edema with moderate endobronchitis and mucoid and bloody secretions, which were suctioned out. Saline washings and lavage were carried out. The procedure was then terminated. The patient tolerated the procedure well. Tova Saunders MD VJD/bjorn , 01:03 PM , 01:08 PM
--- NOTE | 2018-04-30 13:46 | XR ---
EXAM DATE: 04/30/2018 1:42 PM EST AGE/SEX: 58 years / Male INDICATIONS: Post bronchoscopy. CLINICAL DATA: This is the patient's subsequent encounter. Patient reports that signs and symptoms h ave been present for 1 day and indicates a pain score of 4/10. MEDICAL/SURGICAL HISTORY: Hypertension. Pulmonary embolus. Pneumonia. Neuropathy. Cholecystect [place]. Gastric bypass. COMPARISON: [facility], CHEST 1V SINGLE AP, 04/28/2018. . FINDINGS: Patchy airspace disease remains evident throughout both lungs. The lungs are hypoaerated. There is no evidence of pneumothorax. Heart and mediastinal structures are stable. CONCLUSION: Stable chest status post bronchoscopy Bilateral airspace disease without interval improvement No evidence of pneumothorax. Electronically signed by: Fadi Francois MD Board Certified Radiologist 04/30/2018 1:45 PM EST
[2018-04-30] MEDS: Dextrose 5%/NaCl 0.45% Inj 1,000 ML IV.CONT SCH (19:31)
[2018-04-30] MEDS ORDERED: Zolpidem Tartrate 5 MG Tablet PO ONE (23:47)
[2018-05-01] MEDS: Insulin NovoLOG Aspart Correctional Sugar Inj SQ SCH ×3 (01:03→12:35)
[2018-05-01] MEDS: Piperacil/Tazo 4.5 GM Premix 4.5 GM/100 ML BAG IV.SIG SCH ×5 (01:56→23:23)
[2018-05-01] MEDS: Sod Chloride 0.9% Inj 1,000 ML IV.CONT SCH (02:48)
[2018-05-01] MEDS: Chlorhexidine Gluconate 2% 1 Pack (2 Cloths) TOPICAL SCH (04:15)
[2018-05-01] MEDS: Gabapentin 400 MG Capsule PO SCH ×4 (06:56→23:22)
[2018-05-01] MEDS ORDERED: oxyCODONE/Acetaminophen 10/325 Tablet PO PRN (08:25)
--- NOTE | 2018-05-01 08:28 | P.PNIM ---
Subjective Interval history: Follow-up bilateral pneumonia and hypoxemia. Patient seen and examined, lying in bed comfortably no apparent distress. Transferred down from ICU. There is some improvement. Status post bronchoscopy and washing yesterday, cultures pending. Patient requesting something for sleep. His pain is also intermittently uncontrolled. Requesting an increase in his Percocets. Encourage increasing ambulation. As well as use of incentive spirometer and deep breathing coughing. Vital signs stable. Afebrile. Physical Exam Vital signs: Vital Signs 04/30/18 09:00 04/30/18 10:00 04/30/18 11:00 Temperature Pulse Rate 80 66 58 L Respiratory Rate 37 H 35 H 38 H Blood Pressure 158/93 H 138/71 127/81 Pulse Oximetry 96 95 95 04/30/18 11:22 04/30/18 11:55 04/30/18 12:00 Temperature 98.0 F Pulse Rate 73 71 Respiratory Rate 20 20 Blood Pressure 139/83 Pulse Oximetry 96 94 L 04/30/18 12:26 04/30/18 13:10 04/30/18 13:25 Temperature 97.7 F Pulse Rate 84 70 Respiratory Rate 22 14 15 Blood Pressure 124/73 131/73 Pulse Oximetry 93 L 95 04/30/18 13:50 04/30/18 15:18 04/30/18 16:46 Temperature 98.0 F Pulse Rate 69 70 90 Respiratory Rate 16 19 23 Blood Pressure 126/74 Pulse Oximetry 95 04/30/18 17:00 04/30/18 17:04 04/30/18 18:00 Temperature Pulse Rate 76 78 80 Respiratory Rate 7 L 29 H 26 H Blood Pressure 141/82 H 125/75 Pulse Oximetry 97 04/30/18 19:00 04/30/18 19:28 04/30/18 20:00 Temperature 98.4 F Pulse Rate 76 74 Respiratory Rate 15 20 16 Blood Pressure 120/77 112/70 Pulse Oximetry 95 93 L 04/30/18 20:47 04/30/18 21:00 04/30/18 22:00 Temperature Pulse Rate 73 77 80 Respiratory Rate 16 Blood Pressure Pulse Oximetry 96 04/30/18 23:00 04/30/18 23:15 05/01/18 00:00 Temperature 99.8 F H Pulse Rate 80 78 77 Respiratory Rate 21 20 Blood Pressure 125/77 Pulse Oximetry 96 05/01/18 00:44 05/01/18 02:00 05/01/18 02:53 Temperature Pulse Rate 77 77 76 Respiratory Rate Blood Pressure Pulse Oximetry 05/01/18 03:05 05/01/18 04:00 05/01/18 05:00 Temperature 98.7 F Pulse Rate 81 80 84 Respiratory Rate 20 20 Blood Pressure 155/87 H Pulse Oximetry 94 L 05/01/18 06:00 05/01/18 07:24 Temperature Pulse Rate 84 79 Respiratory Rate 19 Blood Pressure Pulse Oximetry 95 Intake & Output 04/30/18 05/01/18 05/01/18 18:59 06:59 18:59 Intake Total 1500 / 1500 1130 / 1130 Output Total 900 / 900 Balance 1500 / 1500 230 / 230 Weight 106.3 kg Intake: IV 1100 / 1100 650 / 650 NS Inj 1,000 ML @ 100 mls/hr IV 1000 / 1000 100 / 100 .CONT .Q10H [facility] Rx#:[id number] Azithromycin Inj 500 MG In NS 250 / 250 Inj 250 ML @ 250 mls/hr IV.SIG Q24H [facility] Rx#:[id number] Zosyn 4.5 GM Premix 4.5 gm In 100 / 100 300 / 300 100 ml @ 200 mls/hr IV.SIG Q6H [facility] Rx#:[id number] Oral 480 / 480 Anesthesia Amount 400 / 400 Output: Urine 900 / 900 Other: # Voids 3 Date of Last Bowel Movement 04/27/18 04/27/18 Narrative: GENERAL: Well-developed, well-nourished patient lying in bed comfortably in NAD . On supplemental O2 2 L nasal cannula. SKIN: Warm and dry. No rash. HEAD: Normocephalic. Atraumatic. EYES: Pupils equal and round. No scleral icterus. No injection or drainage. ENT: No nasal bleeding or discharge. Mucous membranes pink and moist. NECK: Supple. Trachea midline. CARDIOVASCULAR: Regular rate and rhythm. S1, S2 noted. No murmur appreciated. RESPIRATORY: No accessory muscle use. Diminished breath sounds in posterior lobes. Breath sounds equal bilaterally. GASTROINTESTINAL: Abdomen soft, non-tender, nondistended. Normoactive bowel sounds x4. MUSCULOSKELETAL: No obvious deformities. Extremities without clubbing, cyanosis. No edema. NEUROLOGICAL: Awake and alert. No obvious cranial nerve deficits. Motor grossly within normal limits. PSYCHIATRIC: Appropriate mood and affect; insight and judgment normal. Results - Labs CBC & Chem 7: 04/29/18 07:20 04/28/18 04:22 Laboratory Results - last 24 hr 04/30/18 04/30/18 05/01/18 08:42 23:26 06:55 POC Glucose 108 88 100 Microbiology 04/27/18 07:20 Blood - Peripheral Aerobic Blood Culture - Preliminary No growth in 3 days 04/27/18 07:20 Blood - Peripheral Anaerobic Blood Culture - Preliminary No growth in 3 days 04/27/18 07:00 Blood - Peripheral Aerobic Blood Culture - Preliminary No growth in 3 days 04/27/18 07:00 Blood - Peripheral Anaerobic Blood Culture - Preliminary No growth in 3 days - Imaging Impressions Chest X-Ray 04/30/18 12:59 CONCLUSION: Stable chest status post bronchoscopy Bilateral airspace disease without interval improvement No evidence of pneumothorax. Assessment and Plan - Assessment (1) Pneumonia Code(s): J18.9 - Pneumonia, unspecified organism Status: Acute (2) Hypoxemia Code(s): R09.02 - Hypoxemia Status: Acute (3) Acute kidney injury Code(s): N17.9 - Acute kidney failure, unspecified Status: Acute - Plan This is a 58-year-old male patient with: Acute respiratory insufficiency Community-acquired pneumonia -Chest x-ray admission revealed right lower lobe infiltrate. Chest CT showing bilateral airspace disease characteristic of pneumonitis. Bibasilar lower lobe dense consolidation. -Nasal cannula to maintain saturations greater or equal to 90%. Still on 2 L nasal cannula. -Incentive spirometry while awake. Encourage deep breathing coughing. -Albuterol/ipratropium aerosols every 4 to be aggressive every 2 as needed dyspnea. -Pulmonology consultation requested, appreciate input and recommendations. -Chest x-ray showing slight improvement in right opacity. Continue to monitor for improvement. -Received ceftriaxone and azithromycin in the ED. -Will place on vancomycin, piperacillin/tazobactam and azithromycin. -Blood cultures negative to date. Follow. -Sputum, urine Legionella pneumococcal antigens and influenza negative. -Chlamydia, mycoplasma pending. -Continue Mucinex. Continue Solu-Medrol 40 mg every 8 hours. -Pulmonary ordered PFTs. Status post bronchoscopy yesterday, washings sent. Sputum sent for cytology. -Supportive care. History of MOISÉS History of migraine headache Depressive disorder NOS Chronic oxycodone use -Patient is on fluoxetine 40 mg daily for depression. Continue. -Patient is on gabapentin 800 mg 4 times daily for peripheral neuropathy. Continue. -Will continue mirtazapine. -Continue rizatriptan for migraine headache. -Resume tizanidine 4 mg 3 times daily. -Oxycodone/acetaminophen 5/25 1 tab every 4 hours as needed pain 1-5, 10 mg tablet for 6-10. Patient is on oxycodone/acetaminophen at home. Verified nonallergic. History of essential hypertension -Hold hydrochlorothiazide 12.5 mg daily for hypertension. Resume clinically indicated. Patient is actually hypotensive today. Monitor blood pressure trends. -Status post 2 L normal saline ED. BP stable. -Lactate is normal. -Echocardiogram showing EF 55-60%. Pulmonary artery pressure 38. Trace mitral valve and tricuspid valve regurg. History of bowel obstruction status post multiple procedures Transaminitis, improving. -On regular diet. -Pantoprazole for GI prophylaxis. -Docusate sodium/senna 1 tablet twice daily for bowel regimen. -Liver ultrasound ordered and reviewed, no acute findings. -Avoid hepatotoxic medications. -CPK normal and hepatitis panel negative. Acute kidney injury with unknown baseline. Improved. -Creatinine improved. -Monitor urine output. -Accurate I's and O's. -Avoid nephrotoxic medication. Leukopenia. Improved. WBC 1.5 initially. improved. Follow trends. Follow-up CBC in a.m. Elevated BMI -Weight loss encouraged. -PT evaluate and treat. DVT Prophylaxis. SCDs. Heparin. Full code. Discharge Planning: Await clinical improvement. (1) Pneumonia Qualifiers: Pneumonia type: due to unspecified organism Laterality: right Lung location : lower lobe of lung Qualified Code(s): J18.1 - Lobar pneumonia, unspecified organism
[2018-05-01] MEDS ORDERED: RIZATRIPTAN PO SCH (09:00)
[2018-05-01] MEDS: guaiFENesin 600 MG ER Tablet PO SCH ×2 (09:32→20:06)
[2018-05-01] MEDS: Senna/Docusate Sodium 8.6/50 MG Tablet PO SCH ×2 (09:33→20:08)
[2018-05-01] MEDS: FLUoxetine 20 MG Capsule PO SCH (09:33)
[2018-05-01] MEDS: Azithromycin Inj 500 MG in Sodium Chlor 0.9% Inj 250 ML IV.SIG SCH (10:15)
--- NOTE | 2018-05-01 18:47 | P.PN ---
Subjective Interval history: He is better. walked the halls. On o2 2 l Good output . Bronch result pending. No hemoptysis . Physical Exam Vital signs: Vital Signs 04/30/18 19:00 04/30/18 19:28 04/30/18 20:00 Temperature 98.4 F Pulse Rate 76 74 Respiratory Rate 15 20 16 Blood Pressure 120/77 112/70 Pulse Oximetry 95 93 L 04/30/18 20:47 04/30/18 21:00 04/30/18 22:00 Temperature Pulse Rate 73 77 80 Respiratory Rate 16 Blood Pressure Pulse Oximetry 96 04/30/18 23:00 04/30/18 23:15 05/01/18 00:00 Temperature 99.8 F H Pulse Rate 80 78 77 Respiratory Rate 21 20 Blood Pressure 125/77 Pulse Oximetry 96 05/01/18 00:44 05/01/18 02:00 05/01/18 02:53 Temperature Pulse Rate 77 77 76 Respiratory Rate Blood Pressure Pulse Oximetry 05/01/18 03:05 05/01/18 04:00 05/01/18 05:00 Temperature 98.7 F Pulse Rate 81 80 84 Respiratory Rate 20 20 Blood Pressure 155/87 H Pulse Oximetry 94 L 05/01/18 06:00 05/01/18 07:24 05/01/18 08:00 Temperature 98.9 F Pulse Rate 84 79 77 Respiratory Rate 19 17 Blood Pressure 159/86 H Pulse Oximetry 95 95 05/01/18 12:00 05/01/18 13:29 05/01/18 16:00 Temperature 98.6 F 98.0 F Pulse Rate 79 79 80 Respiratory Rate 16 16 16 Blood Pressure 154/88 H 117/75 Pulse Oximetry 95 95 Intake & Output 04/30/18 05/01/18 05/01/18 18:59 06:59 18:59 Intake Total 1500 / 1500 1130 / 1130 2630 / 2630 Output Total 900 / 900 Balance 1500 / 1500 230 / 230 2630 / 2630 Weight 106.3 kg Intake: IV 1100 / 1100 650 / 650 1550 / 1550 NS Inj 1,000 ML @ 100 mls/hr IV 1000 / 1000 100 / 100 1000 / 1000 .CONT .Q10H [facility] Rx#:[id number] Azithromycin Inj 500 MG In NS 250 / 250 250 / 250 Inj 250 ML @ 250 mls/hr IV.SIG Q24H [facility] Rx#:[id number] Zosyn 4.5 GM Premix 4.5 gm In 100 / 100 300 / 300 300 / 300 100 ml @ 200 mls/hr IV.SIG Q6H [facility] Rx#:[id number] Oral 480 / 480 1080 / 1080 Anesthesia Amount 400 / 400 Output: Urine 900 / 900 Other: # Voids 3 5 Date of Last Bowel Movement 04/27/18 04/27/18 # Bowel Movements 1 Narrative: GENERAL: Well-developed, well-nourished patient lying in bed comfortably in NAD . On supplemental O2 2 L nasal cannula. SKIN: Warm and dry. No rash. HEAD: Normocephalic. Atraumatic. EYES: Pupils equal and round. No scleral icterus. No injection or drainage. ENT: No nasal bleeding or discharge. Mucous membranes pink and moist. NECK: Supple. Trachea midline. CARDIOVASCULAR: Regular rate and rhythm. S1, S2 noted. No murmur appreciated. RESPIRATORY: No accessory muscle use. Basal crackles +. Breath sounds equal bilaterally. GASTROINTESTINAL: Abdomen soft, non-tender, nondistended. Normoactive bowel sounds x4. MUSCULOSKELETAL: No obvious deformities. Extremities without clubbing, cyanosis. No edema. NEUROLOGICAL: Awake and alert. No obvious cranial nerve deficits. Motor grossly within normal limits. PSYCHIATRIC: Appropriate mood and affect; insight and judgment normal. Results - Labs CBC & Chem 7: 04/29/18 07:20 04/28/18 04:22 Laboratory Results - last 24 hr 04/29/18 04/30/18 05/01/18 19:50 23:26 06:55 POC Glucose 88 100 IgE 8.2 Microbiology 04/30/18 12:52 Bronchial Washings - Bronchial Acid Fast Bacilli Smear - Final No acid fast bacilli seen 04/30/18 12:52 Bronchial Brushings - Right Lower Lobe Acid Fast Bacilli Smear - Final No acid fast bacilli seen 04/30/18 12:52 Bronchial - Bronchial Gram Stain - Final 04/30/18 12:52 Bronchial - Bronchial Bronchial Culture - Preliminary Heavy growth normal respiratory shari at 24 hours 04/30/18 12:52 Bronchial Brushings - Right Lower Lobe Bronchial [place] Culture - Preliminary No growth in 24 hours 04/30/18 12:52 Bronchial Washings - Bronchial Fungal Smear - Final No fungal elements seen 04/30/18 12:52 Bronchial Brushings - Right Lower Lobe Fungal Smear - Final No fungal elements seen 04/27/18 07:20 Blood - Peripheral Aerobic Blood Culture - Preliminary No growth in 4 days 04/27/18 07:20 Blood - Peripheral Anaerobic Blood Culture - Preliminary No growth in 4 days 04/27/18 07:00 Blood - Peripheral Aerobic Blood Culture - Preliminary No growth in 4 days 04/27/18 07:00 Blood - Peripheral Anaerobic Blood Culture - Preliminary No growth in 4 days Assessment and Plan - Assessment (1) Hemoptysis Code(s): R04.2 - Hemoptysis Status: Acute (2) Pneumonia due to aerobic bacteria Code(s): J15.6 - Pneumonia due to other Gram-negative bacteria Status: Acute (3) Interstitial lung disease Code(s): J84.9 - Interstitial pulmonary disease, unspecified Status: Acute (4) Pneumonia Code(s): J18.9 - Pneumonia, unspecified organism Status: Acute (5) Hypoxemia Code(s): R09.02 - Hypoxemia Status: Acute (6) Fluid overload Code(s): E87.70 - Fluid overload, unspecified Status: Acute (7) Community acquired pneumonia Code(s): J18.9 - Pneumonia, unspecified organism Status: Acute (8) Leukopenia Code(s): D72.819 - Decreased white blood cell count, unspecified Status: Acute (9) Acute kidney injury Code(s): N17.9 - Acute kidney failure, unspecified Status: Acute (10) Elevated levels of transaminase & lactic acid dehydrogenase Code(s): R74.0 - Nonspecific elevation of levels of transaminase and lactic acid dehydrogenase [LDH] Status: Acute - Plan 1. Continue antibiotics and switch to PO in am 2. O2 2 L N/C and wean to RA 3. duoneb nebs qid. 4. Mucinex 600 mg BID 5. D/C solumedrol and add prednisone 30 Mg daily and taper over 2 weeks 6. Will get PFT with bronchodilators. 7. Up in halls 8.Cont S/Q heparin (4) Pneumonia Qualifiers: Pneumonia type: due to unspecified organism Laterality: right Lung location : lower lobe of lung Qualified Code(s): J18.1 - Lobar pneumonia, unspecified organism (6) Fluid overload Qualifiers: Hypervolemia type: other Qualified Code(s): E87.79 - Other fluid overload (8) Leukopenia Qualifiers: Leukopenia type: unspecified Qualified Code(s): D72.819 - Decreased white blood cell count, unspecified
[2018-05-01] MEDS: Dextrose 5%/NaCl 0.45% Inj 1,000 ML IV.CONT SCH (20:07)
[2018-05-01] MEDS: Mirtazapine 15 MG Tablet PO SCH (23:23)
[2018-05-02] MEDS: Chlorhexidine Gluconate 2% 1 Pack (2 Cloths) TOPICAL SCH (03:54)
[2018-05-02] MEDS: Gabapentin 400 MG Capsule PO SCH ×3 (06:19→17:34)
[2018-05-02] MEDS: Piperacil/Tazo 4.5 GM Premix 4.5 GM/100 ML BAG IV.SIG SCH ×3 (06:20→17:35)
--- NOTE | 2018-05-02 07:50 | P.PNIM ---
Subjective Interval history: Follow-up bilateral pneumonia. Patient seen and examined, lying in bed comfortably no apparent distress. States he slept well. Has been ambulating the halls. Some improvement. Continued cough although no reports of any hemoptysis. Continued on 2 L nasal cannula Physical Exam Vital signs: Vital Signs 05/01/18 08:00 05/01/18 12:00 05/01/18 13:29 Temperature 98.9 F 98.6 F Pulse Rate 77 79 79 Respiratory Rate 17 16 16 Blood Pressure 159/86 H 154/88 H Pulse Oximetry 95 95 05/01/18 16:00 05/01/18 19:48 05/01/18 20:00 Temperature 98.0 F 99.1 F Pulse Rate 80 81 74 Respiratory Rate 16 18 20 Blood Pressure 117/75 125/73 Pulse Oximetry 95 96 97 05/02/18 00:00 05/02/18 07:45 Temperature 98.5 F Pulse Rate 68 79 Respiratory Rate 18 24 Blood Pressure 160/90 H Pulse Oximetry 97 87 L Intake & Output 05/01/18 05/02/18 05/02/18 18:59 06:59 18:59 Intake Total 2630 / 2630 1130 / 1130 Balance 2630 / 2630 1130 / 1130 Weight 105.9 kg Intake: IV 1550 / 1550 1100 / 1100 NS Inj 1,000 ML @ 100 mls/hr IV 1000 / 1000 .CONT .Q10H [facility] Rx#:[id number] Azithromycin Inj 500 MG In NS 250 / 250 Inj 250 ML @ 250 mls/hr IV.SIG Q24H [facility] Rx#:[id number] Zosyn 4.5 GM Premix 4.5 gm In 300 / 300 100 / 100 100 ml @ 200 mls/hr IV.SIG Q6H [facility] Rx#:[id number] Oral 1080 / 1080 30 / 30 Other: # Voids 5 # Bowel Movements 1 Weight On Admission 106.3 kg Narrative: GENERAL: Well-developed, well-nourished patient lying in bed comfortably in NAD . On supplemental O2 2 L nasal cannula. SKIN: Warm and dry. No rash. HEAD: Normocephalic. Atraumatic. EYES: Pupils equal and round. No scleral icterus. No injection or drainage. ENT: No nasal bleeding or discharge. Mucous membranes pink and moist. NECK: Supple. Trachea midline. CARDIOVASCULAR: Regular rate and rhythm. S1, S2 noted. No murmur appreciated. RESPIRATORY: No accessory muscle use. Basal crackles +. Breath sounds equal bilaterally. GASTROINTESTINAL: Abdomen soft, non-tender, nondistended. Normoactive bowel sounds x4. MUSCULOSKELETAL: No obvious deformities. Extremities without clubbing, cyanosis. No edema. NEUROLOGICAL: Awake and alert. No obvious cranial nerve deficits. Motor grossly within normal limits. PSYCHIATRIC: Appropriate mood and affect; insight and judgment normal. Results - Labs CBC & Chem 7: 04/29/18 07:20 04/28/18 04:22 Laboratory Results - last 24 hr 04/29/18 19:50 IgE 8.2 Microbiology 04/30/18 12:52 Bronchial Washings - Bronchial Acid Fast Bacilli Smear - Final No acid fast bacilli seen 04/30/18 12:52 Bronchial Brushings - Right Lower Lobe Acid Fast Bacilli Smear - Final No acid fast bacilli seen 04/30/18 12:52 Bronchial - Bronchial Gram Stain - Final 04/30/18 12:52 Bronchial - Bronchial Bronchial Culture - Preliminary Heavy growth normal respiratory shari at 24 hours 04/30/18 12:52 Bronchial Brushings - Right Lower Lobe Bronchial [place] Culture - Preliminary No growth in 24 hours 04/30/18 12:52 Bronchial Washings - Bronchial Fungal Smear - Final No fungal elements seen 04/30/18 12:52 Bronchial Brushings - Right Lower Lobe Fungal Smear - Final No fungal elements seen 04/27/18 07:20 Blood - Peripheral Aerobic Blood Culture - Preliminary No growth in 4 days 04/27/18 07:20 Blood - Peripheral Anaerobic Blood Culture - Preliminary No growth in 4 days 04/27/18 07:00 Blood - Peripheral Aerobic Blood Culture - Preliminary No growth in 4 days 04/27/18 07:00 Blood - Peripheral Anaerobic Blood Culture - Preliminary No growth in 4 days Assessment and Plan - Assessment (1) Pneumonia Code(s): J18.9 - Pneumonia, unspecified organism Status: Acute (2) Hypoxemia Code(s): R09.02 - Hypoxemia Status: Acute (3) Acute kidney injury Code(s): N17.9 - Acute kidney failure, unspecified Status: Acute - Plan This is a 58-year-old male patient with: Acute respiratory insufficiency Community-acquired pneumonia -Chest x-ray admission revealed right lower lobe infiltrate. Chest CT showing bilateral airspace disease characteristic of pneumonitis. Bibasilar lower lobe dense consolidation. -Nasal cannula to maintain saturations greater or equal to 90%. Still on 2 L nasal cannula. -Incentive spirometry while awake. Encourage deep breathing coughing. -Albuterol/ipratropium aerosols every 4 to be aggressive every 2 as needed dyspnea. -Pulmonology consultation requested, appreciate input and recommendations. -Chest x-ray showing slight improvement in right opacity. Continue to monitor for improvement. -Received ceftriaxone and azithromycin in the ED. -Will place on vancomycin, piperacillin/tazobactam and azithromycin. -Blood cultures negative to date. Follow. -Sputum, urine Legionella pneumococcal antigens and influenza negative. -Chlamydia pending. Mycoplasma negative. -HIV pending. -Continue Mucinex. -Started on PO prednisone. -Pulmonary ordered PFTs. Status post bronchoscopy yesterday, washings sent. Sputum sent for cytology. -Supportive care. History of MOISÉS History of migraine headache Depressive disorder NOS Chronic oxycodone use -Patient is on fluoxetine 40 mg daily for depression. Continue. -Patient is on gabapentin 800 mg 4 times daily for peripheral neuropathy. Continue. -Will continue mirtazapine. -Continue rizatriptan for migraine headache. -Resume tizanidine 4 mg 3 times daily. -Oxycodone/acetaminophen 5/25 1 tab every 4 hours as needed pain 1-5, 10 mg tablet for 6-10. Patient is on oxycodone/acetaminophen at home. Verified nonallergic. History of essential hypertension -Resume hydrochlorothiazide 12.5 mg daily for hypertension. Monitor blood pressure trends. -Status post 2 L normal saline ED. BP stable. -Lactate is normal. -Echocardiogram showing EF 55-60%. Pulmonary artery pressure 38. Trace mitral valve and tricuspid valve regurg. History of bowel obstruction status post multiple procedures Transaminitis, improving. -On regular diet. -Pantoprazole for GI prophylaxis. -Docusate sodium/senna 1 tablet twice daily for bowel regimen. -Liver ultrasound ordered and reviewed, no acute findings. -Avoid hepatotoxic medications. -CPK normal and hepatitis panel negative. Acute kidney injury with unknown baseline. Improved. -Creatinine improved. -Monitor urine output. -Accurate I's and O's. -Avoid nephrotoxic medication. Leukopenia. Improved. WBC 1.5 initially. improved. Follow trends. Follow-up CBC in a.m. Elevated BMI -Weight loss encouraged. -PT evaluate and treat. DVT Prophylaxis. SCDs. Heparin. Full code. Discharge Planning: Await clinical improvement. (1) Pneumonia Qualifiers: Pneumonia type: due to unspecified organism Laterality: right Lung location : lower lobe of lung Qualified Code(s): J18.1 - Lobar pneumonia, unspecified organism
[2018-05-02] MEDS: Senna/Docusate Sodium 8.6/50 MG Tablet PO SCH ×2 (08:17→21:04)
[2018-05-02] MEDS: predniSONE 20 MG Tablet PO SCH (08:17)
[2018-05-02] MEDS: guaiFENesin 600 MG ER Tablet PO SCH ×2 (08:17→21:05)
[2018-05-02] MEDS: FLUoxetine 20 MG Capsule PO SCH (08:18)
[2018-05-02] MEDS: Azithromycin Inj 500 MG in Sodium Chlor 0.9% Inj 250 ML IV.SIG SCH (08:19)
--- NOTE | 2018-05-02 15:37 | P.PN ---
Subjective Interval history: ALERT NAD Physical Exam Vital signs: Vital Signs 05/01/18 16:00 05/01/18 19:48 05/01/18 20:00 Temperature 98.0 F 99.1 F Pulse Rate 80 81 74 Respiratory Rate 16 18 20 Blood Pressure 117/75 125/73 Pulse Oximetry 95 96 97 05/02/18 00:00 05/02/18 07:45 05/02/18 08:00 Temperature 98.5 F 98.1 F Pulse Rate 68 79 74 Respiratory Rate 18 24 19 Blood Pressure 160/90 H 151/82 H Pulse Oximetry 97 87 L 92 L 05/02/18 08:20 05/02/18 12:00 05/02/18 14:34 Temperature 97.9 F Pulse Rate 74 62 Respiratory Rate 20 20 Blood Pressure 159/84 H Pulse Oximetry 93 L 95 98 Intake & Output 05/01/18 05/02/18 05/02/18 18:59 06:59 18:59 Intake Total 2630 / 2630 1130 / 1130 450 / 450 Balance 2630 / 2630 1130 / 1130 450 / 450 Weight 105.9 kg Intake: IV 1550 / 1550 1100 / 1100 450 / 450 NS Inj 1,000 ML @ 100 mls/hr IV 1000 / 1000 .CONT .Q10H [facility] Rx#:[id number] Azithromycin Inj 500 MG In NS 250 / 250 250 / 250 Inj 250 ML @ 250 mls/hr IV.SIG Q24H [facility] Rx#:[id number] Zosyn 4.5 GM Premix 4.5 gm In 300 / 300 100 / 100 200 / 200 100 ml @ 200 mls/hr IV.SIG Q6H [facility] Rx#:[id number] Oral 1080 / 1080 30 / 30 Other: # Voids 5 Date of Last Bowel Movement 05/02/18 # Bowel Movements 1 Weight On Admission 106.3 kg Narrative: GENERAL: Well-developed, well-nourished patient lying in bed comfortably in NAD . On supplemental O2 2 L nasal cannula. SKIN: Warm and dry. No rash. HEAD: Normocephalic. Atraumatic. EYES: Pupils equal and round. No scleral icterus. No injection or drainage. ENT: No nasal bleeding or discharge. Mucous membranes pink and moist. NECK: Supple. Trachea midline. CARDIOVASCULAR: Regular rate and rhythm. S1, S2 noted. No murmur appreciated. RESPIRATORY: No accessory muscle use. Basal crackles +. Breath sounds equal bilaterally. GASTROINTESTINAL: Abdomen soft, non-tender, nondistended. Normoactive bowel sounds x4. MUSCULOSKELETAL: No obvious deformities. Extremities without clubbing, cyanosis. No edema. NEUROLOGICAL: Awake and alert. No obvious cranial nerve deficits. Motor grossly within normal limits. PSYCHIATRIC: Appropriate mood and affect; insight and judgment normal. Results - Labs CBC & Chem 7: 04/29/18 07:20 04/28/18 04:22 Microbiology 04/30/18 12:52 Bronchial - Bronchial Gram Stain - Final 04/30/18 12:52 Bronchial - Bronchial Bronchial Culture - Final Heavy growth normal respiratory shari 04/30/18 12:52 Bronchial Brushings - Right Lower Lobe Bronchial [place] Culture - Final No growth in 48 hours 04/27/18 07:20 Blood - Peripheral Aerobic Blood Culture - Final No growth in 5 days 04/27/18 07:20 Blood - Peripheral Anaerobic Blood Culture - Final No growth in 5 days 04/27/18 07:00 Blood - Peripheral Aerobic Blood Culture - Final No growth in 5 days 04/27/18 07:00 Blood - Peripheral Anaerobic Blood Culture - Final No growth in 5 days 04/30/18 12:52 Bronchial Washings - Bronchial Acid Fast Bacilli Smear - Final No acid fast bacilli seen 04/30/18 12:52 Bronchial Brushings - Right Lower Lobe Acid Fast Bacilli Smear - Final No acid fast bacilli seen 04/30/18 12:52 Bronchial Washings - Bronchial Fungal Smear - Final No fungal elements seen 04/30/18 12:52 Bronchial Brushings - Right Lower Lobe Fungal Smear - Final No fungal elements seen Assessment and Plan - Plan PNEUMONIA PLAN O2 NEEDED ANTIBX PULM TOILET F/U CXRAY
[2018-05-02] MEDS: Mirtazapine 15 MG Tablet PO SCH (21:04)
[2018-05-02] MEDS: Dextrose 5%/NaCl 0.45% Inj 1,000 ML IV.CONT SCH (21:04)
[2018-05-03] MEDS: Piperacil/Tazo 4.5 GM Premix 4.5 GM/100 ML BAG IV.SIG SCH ×2 (00:01→06:03)
[2018-05-03] MEDS: Gabapentin 400 MG Capsule PO SCH ×4 (00:01→17:46)
[2018-05-03] MEDS: guaiFENesin 600 MG ER Tablet PO SCH ×2 (08:17→21:28)
[2018-05-03] MEDS: FLUoxetine 20 MG Capsule PO SCH (08:17)
[2018-05-03] MEDS: Azithromycin Inj 500 MG in Sodium Chlor 0.9% Inj 250 ML IV.SIG SCH (08:18)
[2018-05-03] MEDS: predniSONE 20 MG Tablet PO SCH (08:18)
[2018-05-03] MEDS: Senna/Docusate Sodium 8.6/50 MG Tablet PO SCH ×2 (08:19→21:28)
--- NOTE | 2018-05-03 09:55 | P.PNIM ---
Subjective Interval history: Follow-up bilateral pneumonia. Patient seen and examined, lying in bed comfortably no apparent distress. Feels much improved today. 2 L nasal cannula. Has been ambulating well. Pulmonary following. Will change IV antibiotics p.o. today. Physical Exam Vital signs: Vital Signs 05/02/18 12:00 05/02/18 14:34 05/02/18 16:00 Temperature 97.9 F 98.0 F Pulse Rate 74 62 86 Respiratory Rate 20 20 19 Blood Pressure 159/84 H 126/77 Pulse Oximetry 95 98 92 L 05/02/18 19:44 05/02/18 20:00 05/03/18 00:00 Temperature 96.3 F L 96.4 F L Pulse Rate 72 78 59 L Respiratory Rate 20 24 20 Blood Pressure 116/72 115/71 Pulse Oximetry 93 L 92 L 91 L 05/03/18 07:33 Temperature Pulse Rate 72 Respiratory Rate 16 Blood Pressure Pulse Oximetry 92 L Intake & Output 05/02/18 05/03/18 05/03/18 18:59 06:59 18:59 Intake Total 1630 / 1630 200 / 200 Balance 1630 / 1630 200 / 200 Weight 105.8 kg Intake: IV 550 / 550 200 / 200 Azithromycin Inj 500 MG In NS 250 / 250 Inj 250 ML @ 250 mls/hr IV.SIG Q24H RENEA Rx#:[id number] Zosyn 4.5 GM Premix 4.5 gm In 300 / 300 200 / 200 100 ml @ 200 mls/hr IV.SIG Q6H RENEA Rx#:[id number] Oral 1080 / 1080 Other: # Voids 6 Date of Last Bowel Movement 05/02/18 # Bowel Movements 0 Narrative: GENERAL: Well-developed, well-nourished patient lying in bed comfortably in NAD . On supplemental O2 2 L nasal cannula. SKIN: Warm and dry. No rash. HEAD: Normocephalic. Atraumatic. EYES: Pupils equal and round. No scleral icterus. No injection or drainage. ENT: No nasal bleeding or discharge. Mucous membranes pink and moist. NECK: Supple. Trachea midline. CARDIOVASCULAR: Regular rate and rhythm. S1, S2 noted. No murmur appreciated. RESPIRATORY: No accessory muscle use. Basilar crackles + in posterior bases. Breath sounds equal bilaterally. GASTROINTESTINAL: Abdomen soft, non-tender, nondistended. Normoactive bowel sounds x4. MUSCULOSKELETAL: No obvious deformities. Extremities without clubbing, cyanosis. No edema. NEUROLOGICAL: Awake and alert. No obvious cranial nerve deficits. Motor grossly within normal limits. PSYCHIATRIC: Appropriate mood and affect; insight and judgment normal. Results - Labs CBC & Chem 7: 04/29/18 07:20 04/28/18 04:22 Microbiology 04/30/18 12:52 Bronchial - Bronchial Gram Stain - Final 04/30/18 12:52 Bronchial - Bronchial Bronchial Culture - Final Heavy growth normal respiratory shari 04/30/18 12:52 Bronchial Brushings - Right Lower Lobe Bronchial [place] Culture - Final No growth in 48 hours 04/27/18 07:20 Blood - Peripheral Aerobic Blood Culture - Final No growth in 5 days 04/27/18 07:20 Blood - Peripheral Anaerobic Blood Culture - Final No growth in 5 days 04/27/18 07:00 Blood - Peripheral Aerobic Blood Culture - Final No growth in 5 days 04/27/18 07:00 Blood - Peripheral Anaerobic Blood Culture - Final No growth in 5 days Assessment and Plan - Assessment (1) Pneumonia Code(s): J18.9 - Pneumonia, unspecified organism Status: Acute (2) Hypoxemia Code(s): R09.02 - Hypoxemia Status: Acute (3) Acute kidney injury Code(s): N17.9 - Acute kidney failure, unspecified Status: Acute - Plan This is a 58-year-old male patient with: Acute respiratory insufficiency Community-acquired pneumonia -Chest x-ray admission revealed right lower lobe infiltrate. Chest CT showing bilateral airspace disease characteristic of pneumonitis. Bibasilar lower lobe dense consolidation. -Nasal cannula to maintain saturations greater or equal to 90%. Still on 2 L nasal cannula. -Incentive spirometry while awake. Encourage deep breathing coughing. -Albuterol/ipratropium aerosols every 4 to be aggressive every 2 as needed dyspnea. -Pulmonology consultation requested, appreciate input and recommendations. -Chest x-ray showing slight improvement in right opacity. Continue to monitor for improvement. -Received ceftriaxone and azithromycin in the ED. -Placed on vancomycin, piperacillin/tazobactam and azithromycin. Change to Levaquin PO. -Blood cultures negative to date. Follow. -Sputum, urine Legionella pneumococcal antigens and influenza negative. -Chlamydia pending. -Mycoplasma negative. -HIV pending. -Continue Mucinex. -Started on PO prednisone. -Pulmonary ordered PFTs. Status post bronchoscopy yesterday, washings sent. Sputum sent for cytology. -Supportive care. History of MOISÉS History of migraine headache Depressive disorder NOS Chronic oxycodone use -Patient is on fluoxetine 40 mg daily for depression. Continue. -Patient is on gabapentin 800 mg 4 times daily for peripheral neuropathy. Continue. -Will continue mirtazapine. -Continue rizatriptan for migraine headache. -Resume tizanidine 4 mg 3 times daily. -Oxycodone/acetaminophen 5/25 1 tab every 4 hours as needed pain 1-5, 10 mg tablet for 6-10. Patient is on oxycodone/acetaminophen at home. Verified nonallergic. History of essential hypertension -Resume hydrochlorothiazide 12.5 mg daily for hypertension. Monitor blood pressure trends. -Status post 2 L normal saline ED. BP stable. -Lactate is normal. -Echocardiogram showing EF 55-60%. Pulmonary artery pressure 38. Trace mitral valve and tricuspid valve regurg. History of bowel obstruction status post multiple procedures Transaminitis, improving. -On regular diet. -Pantoprazole for GI prophylaxis. -Docusate sodium/senna 1 tablet twice daily for bowel regimen. -Liver ultrasound ordered and reviewed, no acute findings. -Avoid hepatotoxic medications. -CPK normal and hepatitis panel negative. Acute kidney injury with unknown baseline. Improved. -Creatinine improved. -Monitor urine output. -Accurate I's and O's. -Avoid nephrotoxic medication. Leukopenia. Improved. WBC 1.5 initially. improved. Follow trends. Elevated BMI -Weight loss encouraged. -PT evaluate and treat. DVT Prophylaxis. SCDs. Heparin. Full code. Discharge Planning: Await clinical improvement. (1) Pneumonia Qualifiers: Pneumonia type: due to unspecified organism Laterality: right Lung location : lower lobe of lung Qualified Code(s): J18.1 - Lobar pneumonia, unspecified organism
[2018-05-03] MEDS: levoFLOXacin 750 MG Tablet PO SCH (13:37)
--- NOTE | 2018-05-03 16:56 | P.PN ---
Subjective Interval history: ALERT NO SOB AT REST Physical Exam Vital signs: Vital Signs 05/02/18 19:44 05/02/18 20:00 05/03/18 00:00 Temperature 96.3 F L 96.4 F L Pulse Rate 72 78 59 L Respiratory Rate 20 24 20 Blood Pressure 116/72 115/71 Pulse Oximetry 93 L 92 L 91 L 05/03/18 07:33 05/03/18 08:00 05/03/18 12:00 Temperature 97.0 F L Pulse Rate 72 84 78 Respiratory Rate 16 18 20 Blood Pressure 102/59 L 130/82 Pulse Oximetry 92 L 90 L 95 05/03/18 13:44 Temperature Pulse Rate 76 Respiratory Rate 16 Blood Pressure Pulse Oximetry Intake & Output 05/02/18 05/03/18 05/03/18 18:59 06:59 18:59 Intake Total 1630 / 1630 200 / 200 250 / 250 Balance 1630 / 1630 200 / 200 250 / 250 Weight 105.8 kg Intake: IV 550 / 550 200 / 200 250 / 250 Azithromycin Inj 500 MG In NS 250 / 250 250 / 250 Inj 250 ML @ 250 mls/hr IV.SIG Q24H RENEA Rx#:[id number] Zosyn 4.5 GM Premix 4.5 gm In 300 / 300 200 / 200 100 ml @ 200 mls/hr IV.SIG Q6H RENEA Rx#:[id number] Oral 1080 / 1080 Other: # Voids 6 Date of Last Bowel Movement 05/02/18 # Bowel Movements 0 Narrative: GENERAL: Well-developed, well-nourished patient lying in bed comfortably in NAD . On supplemental O2 2 L nasal cannula. SKIN: Warm and dry. No rash. HEAD: Normocephalic. Atraumatic. EYES: Pupils equal and round. No scleral icterus. No injection or drainage. ENT: No nasal bleeding or discharge. Mucous membranes pink and moist. NECK: Supple. Trachea midline. CARDIOVASCULAR: Regular rate and rhythm. S1, S2 noted. No murmur appreciated. RESPIRATORY: No accessory muscle use. Basilar crackles + in posterior bases. Breath sounds equal bilaterally. GASTROINTESTINAL: Abdomen soft, non-tender, nondistended. Normoactive bowel sounds x4. MUSCULOSKELETAL: No obvious deformities. Extremities without clubbing, cyanosis. No edema. NEUROLOGICAL: Awake and alert. No obvious cranial nerve deficits. Motor grossly within normal limits. PSYCHIATRIC: Appropriate mood and affect; insight and judgment normal. Results - Labs CBC & Chem 7: 04/29/18 07:20 04/28/18 04:22 Assessment and Plan - Plan PNEUMONIA PLAN O2 NEEDED ANTIBX PULM TOILET
[2018-05-03] MEDS: Dextrose 5%/NaCl 0.45% Inj 1,000 ML IV.CONT SCH (21:28)
[2018-05-03] MEDS: Mirtazapine 15 MG Tablet PO SCH (21:29)
[2018-05-04] MEDS: Gabapentin 400 MG Capsule PO SCH ×3 (00:18→13:30)
--- NOTE | 2018-05-04 06:25 | XR ---
EXAM DATE: 05/04/2018 5:59 AM EST AGE/SEX: 58 years / Male INDICATIONS: Shortness of breath. CLINICAL DATA: This is the patient's subsequent encounter. Patient reports that signs and symptoms h ave been present for 4 - 6 days and indicates a pain score of Nonresponsive. MEDICAL/SURGICAL HISTORY: . Hypertension. Pulmonary embolus. Pneumonia. Neuropathy. . Cholecy stectomy. Gastric bypass. COMPARISON: [facility], CHEST 1V SINGLE AP, 04/30/2018. . FINDINGS: Irregular areas of airspace opacity in the central right upper and central left midlung is very simil ar in appearance to prior chest x-ray on 04/30/2018. No evidence of pneumothorax. There is loss of de lineation of the right hemidiaphragm which is a new finding. The heart is normal in size. CONCLUSION: 1. Stable bilateral airspace opacities when compared to 04/30/2018. 2. Interval loss of delineation of the right hemidiaphragm could represent infiltrate or pleural eff usion. Electronically signed by: Calos Sahu MD Board Certified Radiologist 05/04/2018 6:24 AM EST
[2018-05-04] MEDS: guaiFENesin 600 MG ER Tablet PO SCH (08:11)
[2018-05-04] MEDS: predniSONE 20 MG Tablet PO SCH (08:11)
[2018-05-04] MEDS: FLUoxetine 20 MG Capsule PO SCH (08:11)
[2018-05-04] MEDS: levoFLOXacin 750 MG Tablet PO SCH (08:12)
[2018-05-04] MEDS: Senna/Docusate Sodium 8.6/50 MG Tablet PO SCH (08:13)
--- NOTE | 2018-05-04 09:20 | P.DS ---
Date of admission: 04/27/18 12:21 Primary care physician: Leroy Osborne Anticipated date of discharge: 05/04/18 Brief History from admission: Patient came in ambulatory with shortness of breath with pulse Pulse-ox of 83. Patient states he had mild cough yesterday morning. Also had indigestion after dinner prior to going to bed. Patient woke up with significant shortness of breath, diaphoresis and substernal pressure at 4:30 AM. Symptoms persisted until arrival. However on arrival substernal pressure was no longer evidenced. Patient states that he has had pneumonia 17 times. Comes in with history of anxiety and stress Patient update on day of discharge: Follow-up bilateral pneumonia. Patient seen and examined, lying in bed comfortably on 2 L nasal cannula. Eating well without any abdominal pain nausea or vomiting. Breathing more comfortably. Failed walk test. O2 ordered for home. Will have patient follow up with pulmonology. Patient is eager to go home. VSS. Afebrile. DS: Diagnosis - Discharge Diagnosis (1) Pneumonia Status: Acute (2) Hypoxemia Status: Acute (3) Acute kidney injury Status: Acute DS: Medications - Discharge Medications Prescriptions: guaifenesin [Mucinex] 600 mg PO BID 5 Days #10 tab levofloxacin 750 mg PO DAILY #4 tab prednisone 30 mg PO DAILY 5 Days #7.5 tab DS: Summary Hospital Course: This is a 58-year-old male patient who presented to the ED with acute respiratory insufficiency and bilateral community-acquired pneumonia. Chest x- ray on admission revealed a right lower lobe infiltrate chest CT showing bilateral airspace disease characteristic of pneumonitis. Patient was supported on nasal cannula supplemental O2, discharged home after failing walk test with home oxygen. Incentive spirometer encourage as well as duo nebalicja. Pulmonary was consulted and saw patient during hospitalization. Chest x-ray did show slight improvement over the course of the hospitalization. Patient was given ceftriaxone as a azithromycin, this was switched over to vancomycin and Zosyn. Blood cultures negative to date. Sputum culture Legionella and pneumococcal are all negative as well as influenza. Patient was given IV steroids as well as Mucinex. Pulmonary PFTs were also ordered. Patient underwent a bronchoscopy washings sent for cytology which are negative today. Patient does have a history of MOISÉS and migraine headaches as well as depressive disorder and chronic oxycodone use. Patient is on fluoxetine 40 mg daily for depression. Patient is on gabapentin 800 mg 4 times daily for peripheral neuropathy. Resume tizanidine 4 mg 3 times daily. Oxycodone/acetaminophen 5/25 1 tab every 4 hours as needed pain. Patient is on oxycodone/acetaminophen at home. Patient does have a history of essential hypertension, continued on HCTZ from home. BP stable. Echocardiogram showing EF 55-60%. Pulmonary artery pressure 38. Trace mitral valve and tricuspid valve regurg. Patient does have a history of bowel obstruction status post multiple procedures, presented with mild transaminitis, improving. Liver ultrasound ordered, no acute findings. Avoid hepatotoxic medications. bCPK normal and hepatitis panel negative. Patient also had acute kidney injury with unknown baseline. Creatinine improved with IVF. Also presented with leukopenia. WBC 1.5 improved to 7. Also has an elevated BMI, weight loss encouraged. Patient was stabilized on day of dc. Failed walk test, ordered for home O2. ABX changed to PO. Complete steroids. Will have him follow up with PCP and revenue enforcement agent. Diet as tolerated. Activity as tolerated, C RN and PT ordered. RX as written. - Time Spent with Patient Total time spent providing and/or coordinating discharge services: Greater than 30 minutes - Quality: VTE Deep Vein Thrombosis/Pulmonary Embolism Present on Admission: No Exam Vital signs: Vital Signs 05/03/18 12:00 05/03/18 13:44 05/03/18 16:00 Temperature Pulse Rate 78 76 79 Respiratory Rate 20 16 18 Blood Pressure 130/82 137/76 Pulse Oximetry 95 94 L 05/03/18 19:43 05/03/18 20:00 05/04/18 00:00 Temperature 96.9 F L 96.1 F L Pulse Rate 78 77 70 Respiratory Rate 18 20 20 Blood Pressure 102/60 144/74 H Pulse Oximetry 94 L 91 L 90 L 05/04/18 07:33 05/04/18 08:00 Temperature 97.2 F L Pulse Rate 75 72 Respiratory Rate 19 21 Blood Pressure 163/93 H Pulse Oximetry 92 L 92 L Intake & Output 05/03/18 05/04/18 05/04/18 18:59 06:59 18:59 Intake Total 500 / 500 240 / 240 Output Total 200 / 200 Balance 500 / 500 40 / 40 Weight 105.8 kg Intake: IV 250 / 250 Azithromycin Inj 500 MG In NS 250 / 250 Inj 250 ML @ 250 mls/hr IV.SIG Q24H RENEA Rx#:[id number] Oral 250 / 250 240 / 240 Output: Urine 200 / 200 Other: # Voids 1 Date of Last Bowel Movement 05/03/18 05/04/18 Narrative: GENERAL: Well-developed, well-nourished patient lying in bed comfortably in NAD . On supplemental O2 2 L nasal cannula. SKIN: Warm and dry. No rash. HEAD: Normocephalic. Atraumatic. EYES: Pupils equal and round. No scleral icterus. No injection or drainage. ENT: No nasal bleeding or discharge. Mucous membranes pink and moist. NECK: Supple. Trachea midline. CARDIOVASCULAR: Regular rate and rhythm. S1, S2 noted. No murmur appreciated. RESPIRATORY: No accessory muscle use. CTA. Breath sounds equal bilaterally. GASTROINTESTINAL: Abdomen soft, non-tender, nondistended. Normoactive bowel sounds x4. MUSCULOSKELETAL: No obvious deformities. Extremities without clubbing, cyanosis. No edema. NEUROLOGICAL: Awake and alert. No obvious cranial nerve deficits. Motor grossly within normal limits. PSYCHIATRIC: Appropriate mood and affect; insight and judgment normal. Results Procedures completed during hospitalization: See above. Bronchoscopy done washings sent. Pending studies at discharge: Pending at discharge 04/30/18 07:23 Surgical [PTH] Routine - Impressions ITS Impressions Liver Ultrasound 04/27/18 00:00 CONCLUSION: 1. Status post cholecystectomy. 2. Prominent liver with no focal abnormality. 3. Small cysts in the right kidney. Venous Doppler Study 04/27/18 00:00 CONCLUSION: 1. Negative examination with no evidence of deep venous thrombosis. Chest CT 04/28/18 00:14 CONCLUSION: 1. Bilateral airspace disease characteristic of pneumonitis. 2. Bibasilar lower lobe dense consolidation. 3. No evidence of pleural effusions or suspicious mass densities. Chest X-Ray 05/04/18 06:00 CONCLUSION: 1. Stable bilateral airspace opacities when compared to 04/30/2018. 2. Interval loss of delineation of the right hemidiaphragm could represent infiltrate or pleural effusion. Discharge Plan - Discharge Disposition Patient Disposition: W/Home Health Service - Discharge Condition Condition: Stable - Discharge Order Discharge Orders: Discharge Order (Routine); Ordered 05/04/18 Ordered By: Corrie Camacho ED Use Only Admit Order (Routine); Ordered 04/27/18 Ordered By: Salinas Reyes - Discharge Details Anticipated Discharge Date: 05/04/18 Discharge Comment: DC home after CM arranges oxygen for home. - Physicians Team Attending Provider: Fercho Antonio Other Providers: Pancho Lugo MD
--- NOTE | 2018-05-04 09:20 | P.DCO ---
- Diagnosis (1) Acute respiratory insufficiency Status: Acute (2) Community acquired pneumonia Status: Acute (3) Hypoxemia Status: Acute - Physical Therapy Order: Evaluate and treat, Improve ambulation, Strength and gait training - Home Health Nursing Order: Medical education, Diabetic education, Oxygen administration education, Medication education-adverse effect, Nursing assessment with vital signs - Case Management Consult Case Management Consult-Home Health: Yes - Certification I have seen patient Fredrick Antoine on 05/04/18. My clinical findings support the need for the requested home health care services because: Patient has SOB I certify that my clinical findings support that this patient is homebound because: Unsteady gait/balance
== END 2018-05-04 14:12 | disposition home health service (06) ==
LOC: PHED 06:12 → PHEDA 12:21 → PHICU 13:41 → PH3 05-01 08:08
PROVIDERS: ADMIT Hospitalist; ATTEND Hospitalist